=== PATIENT | female | born 1975 | race Caucasian/White ===

== ENCOUNTER 2017-01-21 18:20 | Day surgery (SDC) | payer MEDICARE, MEDICAID ==
[2017-01-21] VITALS (10 sets, daily range): BP systolic 95–149; BP diastolic 62–105
[~2017-01-21] VITALS: Ht 121.9 cm; Wt 41.3 kg
[~2017-01-21 18:20] MED LIST: CEPH250S PO; DIPH25TA82 PO; FLT05NA16 NSEACH; HYDR118S PO; PNT40TEC PO
[2017-01-21 18:36] LABS: BASOPHILS # (AUTO) 0.1 10^3/uL (0.0-0.1); BASOPHILS % (AUTO) 1 % (0-10); EOSINOPHILS % (AUTO) 8 % (0-10); LYMPHOCYTES # (AUTO) 4.9 X 10^3 (1.0-4.0); LYMPHOCYTES % (AUTO) 41 % (12-44); MEAN CORPUSCULAR HEMOGLOBIN 32 PG (25-34); MEAN CORPUSCULAR HGB CONC 33 G/DL (32-36); MEAN CORPUSCULAR VOLUME 96 FL (80-99); MEAN PLATELET VOLUME 11.7 FL (7.4-10.4); MONOCYTES # (AUTO) 0.6 X 10^3 (0.0-1.0); MONOCYTES % (AUTO) 5 % (0-12); NEUTROPHILS # (AUTO) 5.5 X 10^3 (1.8-7.8); NEUTROPHILS % (AUTO) 45 % (42-75); PLATELET COUNT 226 10^3/uL (130-400); RED BLOOD COUNT 4.39 10^6/uL (4.35-5.85); RED CELL DISTRIBUTION WIDTH 12.3 % (10.0-14.5)
--- NOTE | 2017-01-21 18:42 | Diagnostic Imaging Report ---
INDICATION: Aspirated a piece of sausage. FINDINGS: Upright chest shows normal heart size and vascularity. The lungs are clear. There is no effusion or pneumothorax. PEG tube is present in the stomach. IMPRESSION: No acute abnormality is seen. Dictated by: Dictated on workstation # [id number]
--- NOTE | 2017-01-21 18:47 | ED Respiratory ---
General Chief Complaint: Respiratory Problems Stated Complaint: UNK Nursing Triage Note: ARRIVED VIA WC TO ROOM 07. PT IS CP AND IS NOT TO TAKE ANYTHING BY MOUTH. SISTER STATES WHEN A PIZZA FELL FROM THE DASH OF THE CAR A PIECE OF SAUSAGE FELL INTO THE PT'S LAP AND THE PT PICKED IT UP AND ATE IT. IMMEDIATELY ASPIRATED. TO ROOM ALLIING. Source: patient, family (sister) Exam Limitations: physical impairment (cerebral palsy) History of Present Illness Time seen by provider: 18:20 Allergies and Home Medications Allergies Coded Allergies: Iodinated Contrast Media - IV Dye (Unverified Allergy, Unknown, RASH, ) Home Medications Diphenhydramine Hcl 25 Mg Tablet, 1 EACH PO HS for 30 Days Prescribed by: BERNARDO RODRIGES on 02/15/14 1319 Fluticasone Propionate 16 Gm [place], 2 SPRAYS NSEACH DAILY, #1 Prescribed by: BERNARDO RODRIGES on 02/15/14 1319 Pantoprazole Sodium 40 Mg Tablet.dr, 1 TAB PO DAILY, #30 Prescribed by: BERNARDO RODRIGES on 02/15/14 1319 Past Szehzba-Eyhpsp-Xwnfqe Hx Patient Social History Alcohol Use: Denies Use Recreational Drug Use: No Smoking Status: Never a Smoker Recent Foreign Travel: No Contact w/Someone Who Travel: No Recent Infectious Disease Expo: No Recent Hopitalizations: No Surgeries HX Surgeries: Yes (PEG TUBE , TUBES IN EARS,) Surgeries: Orthopedic Respiratory Hx Respiratory Disorders: No Cardiovascular Hx Cardiac Disorders: No Neurological Hx Neurological Disorders: Yes (SEVERE CP, UNABLE TO COMMUNICATE, MAKES GRUNTS) Reproductive System Hx Reproductive Disorders: No Genitourinary Hx Genitourinary Disorders: Yes (INCONTINENCE-WEARS DIAPERS) Gastrointestinal Hx Gastrointestinal Disorders: Yes (CONSTIPATION) Musculoskeletal Hx Musculoskeletal Disorders: Yes (SEVERE CP) Endocrine Hx Endocrine Disorders: No HEENT HX ENT Disorders: No (ABSCESSED TEETH) Cancer Hx Cancer: No Psychosocial Hx Psychiatric Problems: No Integumentary HX Skin/Integumentary Disorder: No Blood Transfusions Hx Blood Disorders: No Family Medical History Family Medial History: Cancer 19 FATHER (SMALL CELL LUNG.) Family history: Cardiovascular disease 19 MOTHER (X2 STENTS) Family history: Diabetes mellitus 19 MOTHER Family history: Hypertension 19 MOTHER History of - disorder 19 FATHER (CEREBRAL PALSY) G8 SISTER (MUSCLE DISEASE) Hypercholesterolemia 19 MOTHER Physical Exam Vital Signs Vital Sign - Last 12Hours 01/21/17 18:20 Temp 98.0 Pulse 81 Resp 24 B/P (MAP) 106/85 Pulse Ox 92 O2 Delivery Simple Mask O2 Flow Rate 15.00 Capillary Refill : Less Than 3 Seconds Progress/Results/Core Measures Results/Orders Lab Results Laboratory Tests Test 01/21/17 18:21 01/21/17 18:40 Range/Units White Blood Count 12.0 H 4.3-11.0 10^3/uL Red Blood Count 4.39 4.35-5.85 10^6/uL Hemoglobin 14.0 11.5-16.0 G/DL Hematocrit 42 35-52 % Mean Corpuscular Volume 96 80-99 FL Mean Corpuscular Hemoglobin 32 25-34 PG Mean Corpuscular Hemoglobin Concent 33 32-36 G/DL Red Cell Distribution Width 12.3 10.0-14.5 % Platelet Count 226 130-400 10^3/uL Mean Platelet Volume 11.7 H 7.4-10.4 FL Neutrophils (%) (Auto) 45 42-75 % Lymphocytes (%) (Auto) 41 12-44 % Monocytes (%) (Auto) 5 0-12 % Eosinophils (%) (Auto) 8 0-10 % Basophils (%) (Auto) 1 0-10 % Neutrophils # (Auto) 5.5 1.8-7.8 X 10^3 Lymphocytes # (Auto) 4.9 H 1.0-4.0 X 10^3 Monocytes # (Auto) 0.6 0.0-1.0 X 10^3 Eosinophils # (Auto) 1.0 H 0.0-0.3 10^3/uL Basophils # (Auto) 0.1 0.0-0.1 10^3/uL My Orders Orders - MICAH TOMLINSON PA Chest 1 View, Ap/Pa Only (01/21/17 18:25) Cbc With Automated Diff (01/21/17 18:30) Comprehensive Metabolic Panel (01/21/17 18:30) Saline Lock/Iv-Start (01/21/17 18:30) Vital Signs/I&O Vital Sign - Last 12Hours 01/21/17 01/21/17 18:20 18:20 Temp 98.0 Pulse 81 Resp 24 B/P (MAP) 106/85 Pulse Ox 92 82 O2 Delivery Simple Mask Room Air O2 Flow Rate 15.00 Blood Pressure Mean: 92 Diagnostic Imaging Diagonstic Imaging: Xray Plain Films/CT/US/NM/MRI: chest Comments CHEST 1 VIEW, AP/PA ONLY INDICATION: Aspirated a piece of sausage. FINDINGS: Upright chest shows normal heart size and vascularity. The lungs are clear. There is no effusion or pneumothorax. PEG tube is present in the stomach. IMPRESSION: No acute abnormality is seen. Dictated on workstation # [id number] Reviewed: Reviewed by Me (radiology report reviewed by me) Departure Communication Time/Spoke to Admitting Phy: 18:[address] Woods Departure-Patient Inst. Referrals: WILLEM CHOWDARY MD (PCP/Family) Primary Care Physician MICAH TOMLINSON Jan 21, 2017 18:47
[2017-01-21 19:05] LABS: ALANINE AMINOTRANSFERASE 15 U/L (0-55); ALBUMIN 4.4 G/DL (3.2-4.5); ANION GAP 12 MMOL/L (5-14); ASPARTATE AMINO TRANSFERASE 19 U/L (5-34); BILIRUBIN,TOTAL 0.7 MG/DL (0.1-1.0); BLOOD UREA NITROGEN 18 MG/DL (7-18); BUN/CREATININE RATIO 29; CALCIUM 9.2 MG/DL (8.5-10.1); CARBON DIOXIDE 24 MMOL/L (21-32); CHLORIDE 106 MMOL/L (98-107); CREATININE SERUM 0.63 MG/DL (0.60-1.30); GFR ESTIMATED > 60; GLUCOSE 93 MG/DL (70-105); POTASSIUM 3.7 MMOL/L (3.6-5.0); SODIUM 142 MMOL/L (135-145); TOTAL PROTEIN 7.3 G/DL (6.4-8.2)
[2017-01-21] MEDS ORDERED: NS (IVPB) 100 ML ONE (19:10)
[2017-01-21] MEDS ORDERED: PIPERACILLIN/TAZO 4.5 GM VIAL (ZOSYN) IV ONE (19:15)
[2017-01-21] MEDS ORDERED: ONDANSETRON 4 MG/2 ML (SDV) Z0FRAN IVP PRN (20:00)
[2017-01-21] MEDS: NS IV 1000 ML 1,000 ML IV SCH (20:11)
[2017-01-21] MEDS: FAMOTIDINE 20MG/2ML IV (PEPCID) IVP SCH (22:59)
[2017-01-21] MEDS ORDERED: proPOfol 200 MG/20 ML (DIPRIVAN) VIAL IV ONE (23:14)
[2017-01-21] MEDS ORDERED: PROPOFOL DRIP (ICU) 100 ML IV ONE (23:14)
--- NOTE | 2017-01-21 23:36 | Anesthesia-Procedure Note ---
Procedure Start/Stop Time Date of Procedure: Jan 21, 2017 Start Time: 23:22 Referring Physician: genesis Preprocedural Diagnosis: aspiration Stop Time: 23:27 Procedures/Interventions RSI: Yes 100% pre-Ox, [id number]: Yes Intubation Method: orotracheal Videoscope used: Yes Medications: Propofol, Rocuronium, Succinylcholine, Versed Mask Ventilation: positive Positive End Tide CO2: Yes Breath Sounds after Intubation: bilateral-equal ETT Securred @ (cm): 18 Intubated with ease: Yes Intubation Complications: no complications Post Intubation Xray-done: Yes KAISER DELONG CRNA Jan 21, 2017 23:36
--- NOTE | 2017-01-21 23:46 | Pulmonary History & Physicial ---
History of Present Illness History of Present Illness Date of Consultation 01/21/17 23:42 Date of Admission History of Present Illness Pt presented to ER for suspected aspiration on a piece of sausage. No prior hx like this. Allergies and Home Medications Allergies Coded Allergies: Iodinated Contrast Media - Oral and (Unverified Allergy, Unknown, RASH, 02/09/14) Home Medications No Active Prescriptions or Reported Meds Past Gnbzorh-Lrdxxi-Vllrmp Hx Patient Social History Alcohol Use: Denies Use Recreational Drug Use: No Smoking Status: Never a Smoker Recent Foreign Travel: No Contact w/Someone Who Travel: No Recent Infectious Disease Expo: No Recent Hopitalizations: No Physical Abuse Screen: No Sexual Abuse: No Seasonal Allergies Seasonal Allergies: Yes Surgeries HX Surgeries: Yes (PEG TUBE , TUBES IN EARS,) Surgeries: Orthopedic Respiratory Hx Respiratory Disorders: No Cardiovascular Hx Cardiac Disorders: No Neurological Hx Neurological Disorders: Yes (SEVERE CP, UNABLE TO COMMUNICATE, MAKES GRUNTS) Reproductive System : No Hx Reproductive Disorders: No Genitourinary Hx Genitourinary Disorders: Yes (INCONTINENCE-WEARS DIAPERS) Gastrointestinal Hx Gastrointestinal Disorders: Yes (CONSTIPATION) Musculoskeletal Hx Musculoskeletal Disorders: Yes (SEVERE CP) Endocrine Hx Endocrine Disorders: No HEENT HX ENT Disorders: No (ABSCESSED TEETH) Cancer Hx Cancer: No Psychosocial Hx Psychiatric Problems: No Integumentary HX Skin/Integumentary Disorder: No Blood Transfusions Hx Blood Disorders: No Family Medical History Family Medial History: Cancer 19 FATHER (SMALL CELL LUNG.) Family history: Cardiovascular disease 19 MOTHER (X2 STENTS) Family history: Diabetes mellitus 19 MOTHER Family history: Hypertension 19 MOTHER History of - disorder 19 FATHER (CEREBRAL PALSY) G8 SISTER (MUSCLE DISEASE) Hypercholesterolemia 19 MOTHER Exam Exam Vital Signs Date Time Temp Pulse Resp B/P (MAP) Pulse Ox O2 Delivery O2 Flow Rate FiO2 01/21/17 23:00 128 16 98/62 96 Nasal Cannula 01/21/17 22:00 125 32 122/105 97 Nasal Cannula 01/21/17 21:45 87 01/21/17 21:45 96 4.00 01/21/17 21:00 104 16 108/86 95 Room Air 01/21/17 20:45 105 10 96/73 100 Room Air 01/21/17 20:30 97 8 96/83 100 Room Air 01/21/17 20:15 102 12 96/79 99 Room Air 01/21/17 20:00 99 30 114/85 98 Room Air 01/21/17 19:50 101 14 149/81 99 Room Air 01/21/17 19:50 101 01/21/17 19:43 99.1 Room Air 01/21/17 19:43 99.1 01/21/17 18:20 98.0 81 24 106/85 82 Room Air 01/21/17 18:20 92 Simple Mask 15.00 General Appearance: Anxious, Moderate Distress HEENT: PERRL/EOMI Neck: Full Range of Motion, Normal Inspection Respiratory: Chest Non Tender, No Accessory Muscle Use, No Respiratory Distress , Decreased Breath Sounds Cardiovascular: Regular Rate, Rhythm, No Edema Capillary Refill: Less Than 3 Seconds Gastrointestinal: normal bowel sounds, non tender, soft Neurologic/Psychiatric: Alert Skin: Normal Color, Warm/Dry Lymphatic: No Adenopathy Results Lab Laboratory Tests 01/21/17 18:21 01/21/17 18:40 Assessment/Plan Assessment/Plan -Acute respiratory failure- -Will intubate patient and do bronchoscopy SVNS Will plan for early intubation Clinical Quality Measures DVT/VTE Risk/Contraindication: Risk Factor Score Per Nursin RFS Level Per Nursing on Admit: 4+=Very High MAXI VALERO DO Jan 21, 2017 23:45
--- NOTE | 2017-01-21 23:48 | Pulmonary Procedures ---
Pulmonary Procedures Date of Procedure Date of Service: Jan 21, 2017 Bronch Bronchoscopy with bronchoalveolar lavage (BAL), transbronchial washes and, brushes. Preop DX aspiration hypoxia Postop DX: copious thin secretions no signs of aspiration Complications: none After informed consent obtained and formal time out pt was sedated using propofol . Bronchoscope was advanced through ET tube . An anatomical tour was undertaken down to the segmental bronchi bilaterally. No endobronchial lesions noted. No signs of aspiration. Pt tolerated procedure well. No complications noted. Stat CXR is pending. MAXI VALERO DO Jan 21, 2017 23:48
[2017-01-22] VITALS (48 sets, daily range): BP systolic 78–135; BP diastolic 45–98
[2017-01-22] MEDS ORDERED: NS IV 1000 ML 1,000 ML IV SCH
[2017-01-22] MEDS ORDERED: fentaNYL INJECTION 100 MCG/2 ML AMP ONE (00:09)
[2017-01-22 00:48] LABS: ABG BASE EXCESS -3.7 MMOL/L (-2.5-2.5); ABG HCO3 19 MMOL/L (23-27); ABG OXYGEN SATURATION 96 % (94-100); ABG PCO2 26 MMHG (35-45); ABG PH 7.48 (7.37-7.43); ABG PO2 65 MMHG (79-93); ABG TCO2 20.1 MMOL/L (21.0-31.0)
[2017-01-22 00:51] LABS: ALLENS TEST YES-POS
[2017-01-22 00:52] LABS: PATIENT TEMP 97.6
[2017-01-22] MEDS ORDERED: fentaNYL INJECTION 100 MCG/2 ML AMP IV PRN (01:00)
[2017-01-22] MEDS ORDERED: SODIUM BICARB 8.4% 50 MEQ/50 ML (ABBOTT) SYR ONE (01:03)
[2017-01-22] MEDS ORDERED: SODIUM BICARB 8.4% 50 MEQ/50 ML (ABBOTT) SYR IV ONE (01:15)
[2017-01-22] MEDS: NS IV 1000 ML 1,000 ML IV SCH ×3 (01:19→20:58)
[2017-01-22] MEDS ORDERED: RT-ALBUTEROL/IPRATROPIUM 3 ML (DUONEB) VIAL INH PRN (01:30)
[2017-01-22] MEDS: PIPERACILLIN/TAZOBACTAM 4.5 GM/NS 100 ML IVPB IV SCH ×6 (02:02→17:40)
[2017-01-22 04:14] LABS: BASOPHILS % (AUTO) 0 % (0-10); EOSINOPHILS % (AUTO) 0 % (0-10); LYMPHOCYTES # (AUTO) 1.3 X 10^3 (1.0-4.0); LYMPHOCYTES % (AUTO) 17 % (12-44); MEAN CORPUSCULAR HEMOGLOBIN 32 PG (25-34); MEAN CORPUSCULAR HGB CONC 33 G/DL (32-36); MEAN CORPUSCULAR VOLUME 96 FL (80-99); MEAN PLATELET VOLUME 11.8 FL (7.4-10.4); MONOCYTES # (AUTO) 0.4 X 10^3 (0.0-1.0); MONOCYTES % (AUTO) 5 % (0-12); NEUTROPHILS # (AUTO) 6.2 X 10^3 (1.8-7.8); NEUTROPHILS % (AUTO) 78 % (42-75); PLATELET COUNT 173 10^3/uL (130-400); RED BLOOD COUNT 3.72 10^6/uL (4.35-5.85); RED CELL DISTRIBUTION WIDTH 12.1 % (10.0-14.5); WHITE BLOOD COUNT 7.9 10^3/uL (4.3-11.0)
[2017-01-22 04:27] LABS: ALANINE AMINOTRANSFERASE 11 U/L (0-55); ALBUMIN 3.4 G/DL (3.2-4.5); ANION GAP 13 MMOL/L (5-14); ASPARTATE AMINO TRANSFERASE 14 U/L (5-34); BILIRUBIN,TOTAL 1.1 MG/DL (0.1-1.0); BLOOD UREA NITROGEN 17 MG/DL (7-18); BUN/CREATININE RATIO 28; CALCIUM 7.8 MG/DL (8.5-10.1); CARBON DIOXIDE 19 MMOL/L (21-32); CHLORIDE 112 MMOL/L (98-107); GFR ESTIMATED > 60; GLUCOSE 116 MG/DL (70-105); MAGNESIUM 1.6 MG/DL (1.8-2.4); PHOSPHORUS 1.7 MG/DL (2.3-4.7); POTASSIUM 2.9 MMOL/L (3.6-5.0); SODIUM 144 MMOL/L (135-145); TOTAL PROTEIN 5.4 G/DL (6.4-8.2)
[2017-01-22] MEDS: MAGNESIUM 1 GM/100 ML IVPB 100 ML IV SCH ×3 (04:50→05:58)
[2017-01-22] MEDS: POTASSIUM CL 10MEQ/50ML IVPB 50 ML IV SCH ×4 (04:50→07:55)
[2017-01-22] MEDS ORDERED: SUCCINYLCHOLINE INJ 100 MG/5 ML SYR INJ ONE (05:00)
[2017-01-22] MEDS ORDERED: MIDAZOLAM 5 MG/5 ML (VERSED) VIAL INJ ONE (05:00)
[2017-01-22] MEDS ORDERED: ROCURONIUM 50 MG/5 ML (ZEMURON) VIAL IV ONE (05:00)
[2017-01-22] MEDS ORDERED: POTASSIUM CL 10MEQ/50ML IVPB 50 ML IV ONE (05:00)
[2017-01-22] MEDS: fentaNYL INJECTION 100 MCG/2 ML AMP IV PRN ×2 (05:12→06:16)
[2017-01-22] MEDS: RT-ALBUTEROL/IPRATROPIUM 3 ML (DUONEB) VIAL INH SCH ×3 (07:01→19:20)
--- NOTE | 2017-01-22 07:03 | Pulmonary Progress Note ---
Subjective Subjective/Events-last exam PT is doing better and currently on ventilator. Exam Exam Vital Signs Date Time Temp Pulse Resp B/P (MAP) Pulse Ox O2 Delivery O2 Flow Rate FiO2 01/22/17 06:45 77 23 95/68 98 Mechanical Ventilator 21.00 01/22/17 06:30 80 23 93/62 99 Mechanical Ventilator 21.00 01/22/17 06:15 87 19 100/78 100 Mechanical Ventilator 21.00 01/22/17 06:00 80 24 101/68 99 Mechanical Ventilator 21.00 01/22/17 05:45 74 24 92/63 100 Mechanical Ventilator 21.00 01/22/17 05:30 84 32 95/66 100 Mechanical Ventilator 21.00 01/22/17 05:15 80 24 99/71 100 Mechanical Ventilator 21.00 01/22/17 05:00 85 24 105/72 100 Mechanical Ventilator 21.00 01/22/17 04:45 85 24 100/75 100 Mechanical Ventilator 21.00 01/22/17 04:30 80 24 100/71 100 Mechanical Ventilator 21.00 01/22/17 04:21 79 24 100 40 01/22/17 04:15 80 25 115/81 100 Mechanical Ventilator 21.00 01/22/17 04:00 98.6 86 24 111/86 100 Mechanical Ventilator 21.00 01/22/17 04:00 Mechanical Ventilator 30 01/22/17 03:45 81 24 127/90 100 Mechanical Ventilator 30.00 01/22/17 03:30 74 23 92/67 100 Mechanical Ventilator 30.00 01/22/17 03:15 79 24 96/66 100 Mechanical Ventilator 30.00 01/22/17 03:00 77 24 100/61 100 Mechanical Ventilator 30.00 01/22/17 02:55 74 23 100 Mechanical Ventilator 30.00 01/22/17 02:51 81 24 100 40 01/22/17 02:45 71 24 103/75 100 Mechanical Ventilator 40.00 01/22/17 02:15 81 23 96/61 97 Mechanical Ventilator 40.00 01/22/17 02:00 82 23 96/65 99 Mechanical Ventilator 40.00 01/22/17 01:45 87 23 109/67 100 Mechanical Ventilator 40.00 01/22/17 01:30 93 23 86/54 99 Mechanical Ventilator 40.00 01/22/17 01:15 106 21 112/95 97 Mechanical Ventilator 40.00 01/22/17 01:00 101 14 104/72 100 Mechanical Ventilator 40.00 01/22/17 01:00 101 01/22/17 00:45 94 23 91/59 98 Mechanical Ventilator 40.00 01/22/17 00:30 95 23 98/66 97 Mechanical Ventilator 40.00 01/22/17 00:15 147 23 113/79 98 Mechanical Ventilator 50.00 01/22/17 00:12 112 24 98 50 01/22/17 00:02 142 01/22/17 00:00 97.6 142 23 135/98 97 Mechanical Ventilator 50.00 01/22/17 00:00 Mechanical Ventilator 50 01/21/17 23:45 129 24 138/85 96 Mechanical Ventilator 50.00 01/21/17 23:30 151 23 95/73 100 Mechanical Ventilator 50.00 01/21/17 23:00 128 16 98/62 96 Nasal Cannula 4.00 01/21/17 22:00 125 32 122/105 97 Nasal Cannula 4.00 01/21/17 21:45 87 01/21/17 21:45 96 4.00 01/21/17 21:00 104 16 108/86 95 Room Air 01/21/17 20:45 105 10 96/73 100 Room Air 01/21/17 20:30 97 8 96/83 100 Room Air 01/21/17 20:15 102 12 96/79 99 Room Air 01/21/17 20:00 99 30 114/85 98 Room Air 01/21/17 19:50 101 14 149/81 99 Room Air 01/21/17 19:50 101 01/21/17 19:43 99.1 Room Air 01/21/17 19:43 99.1 01/21/17 18:20 98.0 81 24 106/85 82 Room Air 01/21/17 18:20 92 Simple Mask 15.00 I & O 01/22/17 06:59 Intake Total 1300 ml Output Total 0 ml Balance 1300 ml General Appearance: No Apparent Distress, WD/WN, Other (sedated on vent) HEENT: PERRL/EOMI Neck: Full Range of Motion, Normal Inspection Respiratory: Chest Non Tender Capillary Refill: Less Than 3 Seconds Gastrointestinal: normal bowel sounds, non tender, soft Results Lab Laboratory Tests 01/21/17 18:21 01/21/17 18:40 01/22/17 03:45 Assessment/Plan Assessment/Plan -Acute respiratory failure- -PT is currently on ventilator secondary to suspecteced aspiration she is now s/p bronchoscopy -Pt is doing better today will wake her up and extubate this morning SVNS Will plan for early extubation Clinical Quality Measures DVT/VTE Risk/Contraindication: Risk Factor Score Per Nursin RFS Level Per Nursing on Admit: 4+=Very High MAXI VALERO DO Jan 22, 2017 07:03
--- NOTE | 2017-01-22 07:21 | Diagnostic Imaging Report ---
CLINICAL INDICATION: Patient with aspiration and hypoxia. EXAM: Portable chest x-ray upright view. COMPARISONS: Chest x-ray dated 01/21/2017 at 1836 hours. FINDINGS: Lungs/pleura: There is slight increase mild bibasilar increased density which may represent atelectasis versus infiltrate. Suspected mild medial bibasilar atelectasis versus infiltrate. Slight low lung volumes are seen. There is no pneumothorax or pleural effusion. Pulmonary vasculature and cardiac silhouettes within normal limits. The appearance of air beneath the right diaphragm has resolved. Interposed air-filled colon may be considered. There is right curvature of the thoracic spine. The remainder of this exam shows no significant interval change compared to the prior study of comparison. IMPRESSION: 1: There is slight increase left basilar atelectasis versus infiltrate. Aspiration also may be considered. There is stable mild right lung base atelectasis versus infiltrate. 2: The previously seen air underneath the right diaphragm is resolved and interposed air-filled colon may be considered. Dictated by: Dictated on workstation # [id number]
[2017-01-22] MEDS: FAMOTIDINE 20MG/2ML IV (PEPCID) IVP SCH ×2 (08:32→20:21)
--- NOTE | 2017-01-22 09:36 | Diagnostic Imaging Report ---
Clinical indication: Patient post intubation/bronchoscopy. Exam: Portable chest x-ray upright view. Comparison: Portable chest x-ray dated 01/21/2017. Findings: There is interval placement of ET tube with tip seen at the upper T5 vertebral body level. There is stable left lung base atelectasis versus infiltrate and slight increased medial right lung base atelectasis versus infiltrate. There is no pleural effusion or pneumothorax. Pulmonary vasculature and cardiac silhouettes within normal limits. Again seen right curvature of the thoracic spine. IMPRESSION: 1: There is slight increased atelectasis versus infiltrate involving the right lung base. Otherwise there is stable left lung base infiltrate. 2: Interval placement of ET tube, as discussed above. Dictated by: Dictated on workstation # [id number]
[2017-01-22] MEDS: ENOXAPARIN 40 MG/0.4 ML (LOVENOX) SYR SC SCH (12:27)
[2017-01-23] VITALS (12 sets, daily range): BP systolic 82–124; BP diastolic 53–95
[2017-01-23] MEDS: PIPERACILLIN/TAZOBACTAM 4.5 GM/NS 100 ML IVPB IV SCH ×2 (03:12)
[2017-01-23 03:45] LABS: BASOPHILS % (AUTO) 0 % (0-10); EOSINOPHILS # (AUTO) 0.2 10^3/uL (0.0-0.3); EOSINOPHILS % (AUTO) 3 % (0-10); LYMPHOCYTES # (AUTO) 2.6 X 10^3 (1.0-4.0); LYMPHOCYTES % (AUTO) 36 % (12-44); MEAN CORPUSCULAR HEMOGLOBIN 32 PG (25-34); MEAN CORPUSCULAR HGB CONC 32 G/DL (32-36); MEAN CORPUSCULAR VOLUME 102 FL (80-99); MONOCYTES # (AUTO) 0.3 X 10^3 (0.0-1.0); MONOCYTES % (AUTO) 3 % (0-12); NEUTROPHILS # (AUTO) 4.2 X 10^3 (1.8-7.8); NEUTROPHILS % (AUTO) 58 % (42-75); PLATELET COUNT 154 10^3/uL (130-400); RED CELL DISTRIBUTION WIDTH 12.6 % (10.0-14.5); WHITE BLOOD COUNT 7.3 10^3/uL (4.3-11.0)
[2017-01-23 04:14] LABS: ANION GAP 9 MMOL/L (5-14); BLOOD UREA NITROGEN 12 MG/DL (7-18); BUN/CREATININE RATIO 21; CALCIUM 6.8 MG/DL (8.5-10.1); CARBON DIOXIDE 15 MMOL/L (21-32); CHLORIDE 122 MMOL/L (98-107); CREATININE SERUM 0.57 MG/DL (0.60-1.30); GFR ESTIMATED > 60; GLUCOSE 73 MG/DL (70-105); MAGNESIUM 2.1 MG/DL (1.8-2.4); PHOSPHORUS 2.8 MG/DL (2.3-4.7); POTASSIUM 3.9 MMOL/L (3.6-5.0); SODIUM 146 MMOL/L (135-145)
[2017-01-23] MEDS: POTASSIUM CL 10MEQ/50ML IVPB 50 ML IV SCH (05:30)
[2017-01-23] MEDS: MAGNESIUM 1 GM/100 ML IVPB 100 ML IV SCH (05:30)
[2017-01-23] MEDS ORDERED: FUROSEMIDE 40 MG/4 ML INJ (LASIX) ONE (06:22)
[2017-01-23] MEDS ORDERED: FUROSEMIDE 40 MG/4 ML INJ (LASIX) IVP ONE (06:30)
--- NOTE | 2017-01-23 06:33 | Pulmonary Progress Note ---
Subjective Subjective/Events-last exam PT is doing well. She vomited TF yesterday. There was a fear of possible aspiration however pt appears to be doing well even without NC. NC has fallen off her face. Exam Exam Vital Signs Date Time Temp Pulse Resp B/P (MAP) Pulse Ox O2 Delivery O2 Flow Rate FiO2 01/23/17 06:03 93 14 86/56 91 Nasal Cannula 2.00 01/23/17 05:05 89 10 84/62 98 Nasal Cannula 2.00 01/23/17 04:00 98 2.00 01/23/17 04:00 92 10 99/69 91 Nasal Cannula 2.00 01/23/17 03:00 77 14 90/57 100 Nasal Cannula 2.00 01/23/17 02:03 80 12 96/65 99 Nasal Cannula 2.00 01/23/17 01:28 72 01/23/17 01:00 75 12 85/56 99 Nasal Cannula 2.00 01/23/17 00:00 97.8 01/23/17 00:00 98 2.00 01/23/17 00:00 70 9 82/53 100 Nasal Cannula 2.00 01/22/17 23:00 80 13 89/60 99 Nasal Cannula 2.00 01/22/17 22:00 94 9 87/56 96 Nasal Cannula 2.00 01/22/17 21:00 89 18 86/50 96 Nasal Cannula 2.00 01/22/17 20:10 98.3 101 14 99/70 97 Nasal Cannula 2.00 01/22/17 20:00 97 2.00 01/22/17 19:26 125 27 105/80 95 Nasal Cannula 2.00 01/22/17 19:20 97 3.00 01/22/17 19:00 127 01/22/17 18:00 79 12 83/61 92 Room Air 01/22/17 17:00 87 9 91/63 95 Room Air 01/22/17 16:00 83 10 87/62 95 Room Air 01/22/17 15:29 91 01/22/17 15:00 84 12 89/63 93 Room Air 01/22/17 14:00 86 8 109/96 95 Room Air 01/22/17 13:00 84 01/22/17 13:00 93 9 81/51 92 Room Air 01/22/17 12:10 99.1 Room Air 01/22/17 12:10 Room Air 01/22/17 12:00 86 13 102/61 94 Room Air 01/22/17 11:00 106 23 78/45 98 Room Air 01/22/17 10:39 Room Air 01/22/17 10:00 100 10 102/65 100 Nasal Cannula 2.00 01/22/17 09:45 Nasal Cannula 2.00 01/22/17 09:00 111 15 92/55 100 Nasal Cannula 2.00 01/22/17 08:46 99.9 Nasal Cannula 2.00 01/22/17 08:32 Nasal Cannula 4.00 01/22/17 08:00 123 32 108/71 95 Nasal Cannula 4.00 01/22/17 07:48 98 Nasal Cannula 4.00 01/22/17 07:48 Nasal Cannula 4.00 01/22/17 07:01 84 24 98 21 01/22/17 07:00 80 01/22/17 07:00 84 23 110/74 99 Mechanical Ventilator 21.00 01/22/17 06:45 77 23 95/68 98 Mechanical Ventilator 21.00 01/22/17 06:30 80 23 93/62 99 Mechanical Ventilator 21.00 I & O 01/23/17 07:00 Intake Total 1300 ml Balance 1300 ml General Appearance: No Apparent Distress, WD/WN, Other (sedated on vent) HEENT: PERRL/EOMI Neck: Full Range of Motion, Normal Inspection Respiratory: Chest Non Tender Capillary Refill: Less Than 3 Seconds Gastrointestinal: normal bowel sounds, non tender, soft Results Lab Laboratory Tests 01/21/17 18:21 01/21/17 18:40 01/22/17 03:45 01/23/17 03:15 Assessment/Plan Assessment/Plan -Acute respiratory failure- -pt is doing well off vent SVNS Pulmonary edema -Hep lock IVF -Lasix 40mg IV X 1 - CXR reviewed and is poor insp film. She currently has NC off and Sp02 is 94%. Will plan on discharge later today if she is still doing well. Clinical Quality Measures DVT/VTE Risk/Contraindication: Risk Factor Score Per Nursin RFS Level Per Nursing on Admit: 4+=Very High MAXI VALERO DO Jan 23, 2017 06:33
[2017-01-23] MEDS: ENOXAPARIN 40 MG/0.4 ML (LOVENOX) SYR SC SCH (06:52)
[2017-01-23] MEDS: RT-ALBUTEROL/IPRATROPIUM 3 ML (DUONEB) VIAL INH SCH (07:00)
--- NOTE | 2017-01-23 07:43 | Diagnostic Imaging Report ---
Portable AP view of the chest. INDICATION: Aspiration. Cerebral palsy. FINDINGS: When compared to 01/21/2017, there is significant worsening with development of right lower lobe infiltrate with small/ moderate pleural effusion. The heart size is normal. No effusion on the left. No pneumothorax. IMPRESSION: Large opacification in the mid and lower right chest developed from the prior study concerning for pneumonia and prominent pleural effusion. Dictated by: Dictated on workstation # [id number]
[2017-01-23] MEDS: FAMOTIDINE 20MG/2ML IV (PEPCID) IVP SCH (07:50)
== END 2017-01-23 11:35 | disposition home or self-care (01) ==
LOC: EDUNIT# 18:20 → ER 18:22 → ICU 19:11 → UNDOADMOB 19:11 → SDC 19:11 → ICU 19:11 → SDC 01-23 11:35 → UNDODISOB 01-23 11:35
PROVIDERS: ATTEND Internal Medicine Critical Care Medicine
DX: J96.01 Acute respiratory failure with hypoxia (principal); T17.920A Food in respiratory tract, part unspecified causing asphyxiation, initial encounter; G80.9 Cerebral palsy, unspecified; R32 Unspecified urinary incontinence; J81.1 Chronic pulmonary edema
CPT/HCPCS: 36415; 71010; 80048; 80053; 82805; 83735; 84100; 85025; 87081; 94002; 94003; 94640; 94799; 96374

== ENCOUNTER → 2017-02-03 | Outpatient (CLI) | payer MEDICARE, MEDICAID ==
--- NOTE | 2017-02-03 16:20 | Diagnostic Imaging Report ---
INDICATION: Aspiration. COMPARISON: 01/23/2017. FINDINGS: Resolution of right middle and lower lobe pneumonias and right pleural fluid has occurred in the interim. Some very mild patchy infiltrate in the left lower lobe having improved in severity from prior. No effusion, no pneumothorax. IMPRESSION: Resolution of right thoracic pleural parenchymal opacity. Mild infiltrative changes in the left lower lobe improved from prior. No adverse development. Dictated by: Dictated on workstation # [id number]
== END ==
LOC: RAD 14:49
PROVIDERS: ATTEND Family Medicine
DX: J69.0 Pneumonitis due to inhalation of food and vomit (principal)
CPT/HCPCS: 71020

== ENCOUNTER → 2017-05-06 | Day surgery (SDC) | payer MEDICARE, MEDICAID ==
[~2017-05-06] VITALS: Ht 121.9 cm; Wt 40.4 kg
[2017-05-06 09:38] VITALS: BP 194/169
--- NOTE | 2017-05-06 10:12 | Progress Note-Post Operative ---
Post-Operative Progess Note Surgeon (s)/Commercial Development Manager (s) Surgeon ANDRES LOGAN MD Commercial Development Manager: none Pre-Operative Diagnosis dysphagia, malnutrition, dehydration Post-Operative Diagnosis same Procedure & Operative Findings Date of Procedure 05/06/17 Procedure Performed/Findings replacement gastrostomy tube. Anesthesia Type none Estimated Blood Loss Estimated blood loss (mL): minimal Specimens/Packing Specimens Removed none ANDRES LOGAN MD May 06, 2017 10:12
--- NOTE | 2017-05-06 11:03 | OPERATIVE REPORT ---
PROCEDURE PHYSICIAN: ANDRES LEROY DATE OF PROCEDURE: 05/06/2017 ATTENDING PRIMARY CARE PHYSICIAN: Dr. Cristy Brumfield. PREPROCEDURE DIAGNOSES: 1. Dysphagia. 2. Weight loss. 3. Developmental delay. POSTPROCEDURE DIAGNOSES: 1. Dysphagia. 2. Weight loss. 3. Developmental delay. PROCEDURE: Gastrostomy tube change. SURGEON: Dr. Leroy. ANESTHESIA: None. ESTIMATED BLOOD LOSS: Minimal. DISPOSITION: The patient tolerated the procedure well. Ms. Maeve Khalil is a 41-year-old female known to us. She has had a history of developmental delay and over time required gastrostomy tube for alimentation due to her worsening nutritional as well as hydration status. The original gastrostomy tube became nonfunctional and was removed and replaced by an ALYCE gastrostomy tube. Again, the gastrostomy tube has become nonfunctional with anopening on the external surface of the tubing. We will proceed with removal and replacement of the gastrostomy tube. The patient was placed in the supine and no anesthesia was given. The balloon was desufflated with an empty syringe and removed. A 22-Fris[place] new ALYCE gastrostomy tube was placed without any resistance and the balloon insufflated to approximately 10 milliliters and then pulled back in the external rubber bolster abutted the plate at the skin level. The patient tolerated procedure well. The tube may be accessed and used at any time. Job ID: [id number] Dictated Date: 05/06/2017 10:10:52 Shaft Tender Date: 05/06/2017 10:54:19 / bonnie JENKINS
[2017-05-06 12:56] VITALS: BP 194/169
== END | disposition home or self-care (01) ==
LOC: SDC 09:03
PROVIDERS: ATTEND Surgery
DX: K94.29 Other complications of gastrostomy (principal); R13.10 Dysphagia, unspecified; R63.4 Abnormal weight loss; R62.50 Unspecified lack of expected normal physiological development in childhood

== ENCOUNTER 2017-11-11 09:28 | Outpatient (CLI) | payer MEDICARE, MEDICAID ==
[~2017-11-11] VITALS: Ht 149.9 cm; Wt 38.6 kg
[2017-11-11] MEDS ORDERED: LACT10SO PEG (12:39)
[2017-11-11] MEDS ORDERED: LORA5SOL61 PEG (12:39)
== END 2017-11-11 12:44 ==
LOC: PREOP 09:28
PROVIDERS: ATTEND Surgery
DX: Z01.818 Encounter for other preprocedural examination (principal); K94.23 Gastrostomy malfunction

== ENCOUNTER → 2017-11-13 | Day surgery (SDC) | payer MEDICARE, MEDICAID ==
[~2017-11-13] VITALS: Ht 149.9 cm; Wt 38.6 kg
[~2017-11-13] MED LIST changes: +LACT10SO PEG; +LORA5SOL61 PEG
--- NOTE | 2017-11-13 10:06 | Progress Note-Post Operative ---
Post-Operative Progess Note Surgeon (s)/Client Success Director (s) Surgeon ANDRES LOGAN MD Client Success Director: none Pre-Operative Diagnosis dysphagia, malnutrition, dehydration Post-Operative Diagnosis same, malfunctioning gastrostomy tube. Procedure & Operative Findings Date of Procedure 11/13/17 Procedure Performed/Findings removal and replacement gastrostomy tube. Anesthesia Type none Estimated Blood Loss Estimated blood loss (mL): minimal Specimens/Packing Specimens Removed none ANDRES LOGAN MD Nov 13, 2017 10:06 am
[2017-11-13 10:10] VITALS: BP 90/50
== END | disposition home or self-care (01) ==
LOC: SDC 09:24
PROVIDERS: ATTEND Surgery
DX: K94.23 Gastrostomy malfunction (principal); R13.10 Dysphagia, unspecified; F72 Severe intellectual disabilities; K59.00 Constipation, unspecified; E46 Unspecified protein-calorie malnutrition; E86.0 Dehydration

== ENCOUNTER 2018-06-22 06:09 | Outpatient (CLI) | payer MEDICARE, MEDICAID ==
[~2018-06-22] VITALS: Ht 149.9 cm; Wt 36.3 kg
== END 2018-06-22 09:53 | disposition home or self-care (01) ==
LOC: PREOP 06:09
PROVIDERS: ATTEND Surgery
DX: Z01.818 Encounter for other preprocedural examination (principal)

== ENCOUNTER 2018-06-23 11:01 | Day surgery (SDC) | payer MEDICARE, MEDICAID ==
[~2018-06-23] VITALS: Ht 149.9 cm; Wt 36.3 kg
--- OUTSIDE RECORDS SUMMARY | 2018-06-23 11:13 | XMS REPORT | Continuity of Care Document ---
Author Author [facility] Organization [facility] Address Unknown Phone Unavailable Allergies Active Description Code Type Severity Reaction Onset Reported/Identified Relationship to Patient Clinical Status Yes CONTRAST DYE CONTRAST DYE SEVERE Yes NO KNOWN DRUG ALLERGIES NO KNOWN DRUG ALLERG UNKNOWN Yes CONTRAST DYE SEVERE DERMATOLOGICAL - HIV Yes NO KNOWN DRUG ALLERGIES UNKNOWN NO KNOWN DRUG ALLERG Yes Iodinated Contrast Media - IV Dye [id number] Drug Allergy Unknown RASH 05/2014 Yes Iodinated Contrast Media - Oral and [id number] Drug Allergy Unknown RASH Yes Iodinated Contrast- Oral and IV Dye [id number] Drug Allergy Unknown RASH Medications Medication Packaging Start Date Stop Date Route Dosage Sig ALBUTEROL SVN 2.5MG/3CC LIQ 2.5 MG (PROVENTIL DAVID 2.5MG/3CC) MG 11/26/2016 11/26/2016 PRN ONCE NORMAL SALINE 250CC IV BAG INJ 0.9 % (NS 250CC IV BAG) ml 11/26/2016 12/06/2016 Daily&1900 ACETAMINOPHEN ES LIQ LIQ 500 MG/15CC (TYLENOL ADULT LIQ) MG 11/26/2016 12/03/2016 PRN Q6H ALBUTEROL SVN 2.5MG/3CC LIQ 2.5 MG (PROVENTIL DAVID 2.5MG/3CC) MG 11/26/2016 12/06/2016 QID&0600,1100,1600,2100 IBUPROFEN SUSP UNIT DOSE LIQ 100 MG/5CC (MOTRIN LIQ UNIT DOSE) MG 11/26/2016 12/03/2016 PRN Q8H Fluarix Quad [id number] (PF) (Influenza [id number] 36mos up(PF)) IM syringe 11/26/2016 11/26/2016 ONCE&2313 Fluarix Quad 5429-2451 (PF) (Influenza [id number] 36mos up(PF)) IM syringe ML 11/26/2016 11/26/2016 ONCE&2323 LORATADINE TAB 10 MG (CLARITIN) MG 11/27/2016 12/03/2016 Daily&0900 CEFTRIAXONE PREMIX IV BAG IV 1 GM/50CC (ROCEPHIN PREMIX IV BAG) GM 11/27/2016 12/06/2016 Daily&1800 ACETAMINOPHEN SUPPOS SUP 650 MG (TYLENOL) MG 11/27/2016 12/04/2016 PRN Q6H MORPHINE SYRINGE INJ 2 MG/CC MG 11/27/2016 ONCE&1715 LACTULOSE SYRUP LIQ 20 GM/30CC (CHRONULAC SYRUP) GM 11/27/2016 11/27/2016 ONCE&2100 NORMAL SALINE 500CC IV BAG INJ 0.9 % (NS 500CC IV BAG) ml 05/09/2017 05/09/2017 ONCE&1943 Problems Date Dx Coded Attending Type Code Diagnosis Diagnosed By 08/29/2013 AHSA BOB DDS, Ot 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 08/29/2013 ASHA BOB DDS Ot 521.00 UNSPEC DENTAL CARIES 08/29/2013 ASHA BOB DDS, Ot V74.8 SCREEN-BACTERIAL DIS NEC 02/15/2014 BERNARDO RODRIGES DO Ot 276.8 HYPOPOTASSEMIA 02/15/2014 BERNARDO RODRIGES DO Ot 285.9 ANEMIA NOS 02/15/2014 BERNARDO RODRIGES DO Ot 300.00 ANXIETY STATE NOS 02/15/2014 BERNARDO RODRIGES DO Ot 318.1 SEVERE INTELLECTUAL DISABILITIES 02/15/2014 BERNARDO RODRIGES DO Ot 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 02/15/2014 BERNARDO RODRIGES DO Ot 477.9 ALLERGIC RHINITIS NOS 02/15/2014 BERNARDO RODRIGES DO Ot 518.81 ACUTE RESPIRATORY FAILURE 02/15/2014 BERNARDO RODRIGES DO Ot 530.3 ESOPHAGEAL STRICTURE 02/15/2014 BERNARDO RODRIGES DO Ot 535.40 OTH SPECIFIED GASTRITIS,W/O MENTION OF H 02/15/2014 BERNARDO RODRIGES DO Ot 564.00 UNSPEC CONSTIPATION 02/15/2014 BERNARDO RODRIGES DO Ot 788.30 UNSPECIFIED URINARY INCONTINENCE 02/15/2014 BERNARDO RODRIGES DO Ot 934.9 FB RESPIRATORY TREE NOS 02/15/2014 BERNARDO RODRIGES DO Ot E911 RESP OBSTR-FOOD INHAL 04/20/2015 PAULINO DDS, ASHA Ot 343.2 04/20/2015 PAULINO DDS, ASHA Ot 522.5 04/20/2015 GERALDINE BAILEY, TODD Cervantes Ot 530.81 04/20/2015 GERALDINE BAILEY, TODD Cervantes Ot 786.2 04/20/2015 MARCELLE BAILEY, SUKHWINDER Jalloh Ot 536.49 OTH GASTROSTOMY COMPLICATION 04/20/2015 MARCELLE BAILEY, SUKHWINDER Jalloh Ot V64.3 NO PROC FOR REASONS NEC 11/26/2016 TODD CHANDLER W 799.02 HYPOXEMIA 11/26/2016 TODD CHANDLER W P84 OTHER PROBLEMS WITH 11/26/2016 TODD CHANDLER W 799.02 HYPOXEMIA 11/26/2016 TODD CHANDLER W P84 OTHER PROBLEMS WITH 11/27/2016 TODD CHANDLER W 799.02 HYPOXEMIA 11/27/2016 TODD CHANDLER W P84 OTHER PROBLEMS WITH 11/27/2016 TODD CHANDLER W R09.02 HYPOXEMIA 11/27/2016 TODD CHANDLER W 536.41 INFECTION OF GASTROSTOMY 11/27/2016 TODD CHANDLER W 799.02 HYPOXEMIA 11/27/2016 TODD CHANDLER W K94.22 GASTROSTOMY INFECTION 11/27/2016 TODD CHANDLER W P84 OTHER PROBLEMS WITH 11/27/2016 TODD CHANDLER W R09.02 HYPOXEMIA 11/27/2016 TODD CHANDLER W 536.41 INFECTION OF GASTROSTOMY 11/27/2016 TODD CHANDLER W 799.02 HYPOXEMIA 11/27/2016 TODD CHANDLER W K94.22 GASTROSTOMY INFECTION 11/27/2016 TODD CHANDLER W P84 OTHER PROBLEMS WITH 11/27/2016 TODD CHANDLER W R09.02 HYPOXEMIA 11/28/2016 TODD CHANDLER W 300.00 11/28/2016 TODD CHANDLER W 343.9 11/28/2016 TODD CHANDLER W 536.40 11/28/2016 TODD CHANDLER W 536.41 INFECTION OF GASTROSTOMY 11/28/2016 TODD CHANDLER W 780.60 11/28/2016 TODD CHANDLER A 799.02 HYPOXEMIA 11/28/2016 TODD CHANDLER F41.9 ANXIETY DISORDER, UNSPECIFIED 11/28/2016 GERALDINE TODD Whatley 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, UNSPECIFIED 11/28/2016 CHANDLER TODD Whatley K94.22 GASTROSTOMY INFECTION 11/28/2016 CHANDLER TODD Whatley K94.29 OTHER COMPLICATIONS OF GASTROSTOMY 11/28/2016 CHANDLER TODD Whatley P84 OTHER PROBLEMS WITH 11/28/2016 TODD CHANDLER A R09.02 HYPOXEMIA 11/28/2016 CHANDLER TODD Whatley R50.9 FEVER, UNSPECIFIED 11/28/2016 CHANDLER TODD Whatley V05.9 NEED FOR PROPHYLACTIC VACCINATION AND INOCULATION AGAINST UNSPECIFIED SINGLE DISEASE 11/28/2016 TODD CHANDLER Z23 ENCOUNTER FOR IMMUNIZATION 01/23/2017 MAXI VALERO DO, Ot 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, UNSPECIFIED 01/23/2017 MAXI VALERO DO, Ot J81.1 CHRONIC PULMONARY EDEMA 01/23/2017 MAXI VALERO DO, Ot J96.01 ACUTE RESPIRATORY FAILURE WITH HYPOXIA 01/23/2017 MAXI VALERO DO, Ot R32 UNSPECIFIED URINARY INCONTINENCE 01/23/2017 MAXI VALERO DO, Ot T17.920A FOOD IN RESP TRACT, PART UNSP CAUSING 01/29/2017 MAXI VALERO DO, Ot 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, UNSPECIFIED 01/29/2017 MAXI VALERO DO, Ot J81.1 CHRONIC PULMONARY EDEMA 01/29/2017 MAXI VALERO DO, Ot J96.01 ACUTE RESPIRATORY FAILURE WITH HYPOXIA 01/29/2017 MAXI VALERO DO, Ot R32 UNSPECIFIED URINARY INCONTINENCE 01/29/2017 MAXI VALERO DO, Ot T17.920A FOOD IN RESP TRACT, PART UNSP CAUSING 01/29/2017 MAXI VALERO DO, Ot 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, UNSPECIFIED 01/29/2017 MAXI VALERO DO, Ot J81.1 CHRONIC PULMONARY EDEMA 01/29/2017 MAXI VALERO DO, Ot J96.01 ACUTE RESPIRATORY FAILURE WITH HYPOXIA 01/29/2017 MAXI VALERO DO Ot R32 UNSPECIFIED URINARY INCONTINENCE 01/29/2017 MAXI VALERO DO, Ot T17.920A FOOD IN RESP TRACT, PART UNSP CAUSING 02/05/2017 TODD CHANDLER MD Ot J69.0 PNEUMONITIS DUE TO INHALATION OF FOOD AN 02/25/2017 TODD CHANDLER MD Ot J69.0 PNEUMONITIS DUE TO INHALATION OF FOOD AN 03/04/2017 TODD CHANDLER MD Ot J69.0 PNEUMONITIS DUE TO INHALATION OF FOOD AN 05/06/2017 LOWE DDS, ASHA Ot 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 05/06/2017 LOWE DDS, ASHA Ot 522.5 PERIAPICAL ABSCESS 05/06/2017 TODD CHANDLER MD Ot 530.81 ESOPHAGEAL REFLUX 05/06/2017 TODD CHANDLER MD Ot 786.2 COUGH 05/06/2017 TODD CHANDLER MD Ot J69.0 PNEUMONITIS DUE TO INHALATION OF FOOD AN 05/06/2017 LOWE DDS, ASHA Ot 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 05/06/2017 LOWE DDS, ASHA Ot 522.5 PERIAPICAL ABSCESS 05/06/2017 TODD CHANDLER MD Ot 530.81 ESOPHAGEAL REFLUX 05/06/2017 TODD CHANDLER MD Ot 786.2 COUGH 05/06/2017 TODD CHANDLER MD Ot J69.0 PNEUMONITIS DUE TO INHALATION OF FOOD AN 05/07/2017 ANDRES LOGAN MD Ot K94.29 OTHER COMPLICATIONS OF GASTROSTOMY 05/07/2017 ANDRES LOGAN MD Ot R13.10 DYSPHAGIA, UNSPECIFIED 05/07/2017 ANDRES LOGAN MD Ot R62.50 UNSP LACK OF EXPECTED NORMAL PHYSIOL DEV 05/07/2017 ANDRES LOGAN MD Ot R63.4 ABNORMAL WEIGHT LOSS 05/09/2017 David Bansal 486 PNEUMONIA, ORGANISM UNSPECIFIED 05/09/2017 David Bansal 560.32 FECAL IMPACTION 05/09/2017 David Bansal 780.60 FEVER, UNSPECIFIED 05/09/2017 David Bansal J18.9 PNEUMONIA, UNSPECIFIED ORGANISM 05/09/2017 David Bansal K56.41 FECAL IMPACTION 05/09/2017 David Bansal R50.9 FEVER, UNSPECIFIED 05/12/2017 ANDRES LOGAN MD Ot K94.29 OTHER COMPLICATIONS OF GASTROSTOMY 05/12/2017 ANDRES LOGAN MD, Ot R13.10 DYSPHAGIA, UNSPECIFIED 05/12/2017 ANDRES LOGAN MD Ot R62.50 UNSP LACK OF EXPECTED NORMAL PHYSIOL DEV 05/12/2017 ANDRES LOGAN MD, Ot R63.4 ABNORMAL WEIGHT LOSS 11/12/2017 ANDRES LOGAN MD, Ot K94.23 GASTROSTOMY MALFUNCTION 11/12/2017 ANDRES LOGAN MD, Ot Z01.818 ENCOUNTER FOR OTHER PREPROCEDURAL EXAMIN 11/16/2017 ANDRES LOGAN MD Ot E46 UNSPECIFIED PROTEIN-CALORIE MALNUTRITION 11/16/2017 ANDRES LOGAN MD Ot E86.0 DEHYDRATION 11/16/2017 ANDRES LOGAN MD Ot F72 SEVERE INTELLECTUAL DISABILITIES 11/16/2017 ANDRES LOGAN MD, Ot K59.00 CONSTIPATION, UNSPECIFIED 11/16/2017 ANDRES LOGAN MD Ot K94.23 GASTROSTOMY MALFUNCTION 11/16/2017 ANDRES LOGAN MD, Ot R13.10 DYSPHAGIA, UNSPECIFIED 11/16/2017 ANDRES LOGAN MD Ot E46 UNSPECIFIED PROTEIN-CALORIE MALNUTRITION 11/16/2017 ANDRES LOGAN MD Ot E86.0 DEHYDRATION 11/16/2017 ANDRES LOGAN MD Ot F72 SEVERE INTELLECTUAL DISABILITIES 11/16/2017 ANDRES LOGAN MD, Ot K59.00 CONSTIPATION, UNSPECIFIED 11/16/2017 ANDRES LOGAN MD Ot K94.23 GASTROSTOMY MALFUNCTION 11/16/2017 ANDRES LOGAN MD Ot R13.10 DYSPHAGIA, UNSPECIFIED Procedures Code Description Performed By Performed On 96.71 CONTINUOUS INVASIVE MECHANICAL VENTILATI 02/06/2014 99.15 PARENTERAL INFUSION OF CONCENTRATED NUT. 02/08/2014 42.92 ESOPHAGEAL DILATION 02/09/2014 45.13 OTHER ENDOSCOPY OF SM INTEST 02/09/2014 43.11 PERCUTANEOUS [ENDOSCOPIC] GASTROSTOMY [P 02/10/2014 Results Test Result Range Comprehensive Metabolic Panel - 11/26/16 17:30 Albumin 4.3 g/dL 3.6-5.1 ALP 56 U/L 35-130 ALT 13 U/L 6-45 Anion Gap 18 6-14 AST 17 U/L 2-40 BUN 16 mg/dL 5-25 Calcium 9.6 mg/dL 8.3-10.4 Chloride 107 mmol/L 95-114 CO2 21 mEq/L 22-33 Creat 0.61 mg/dL 0.50-1.50 eGFR 109 mL/min/1.73m2 >59 Globulin 3.1 g/dL 2.3-3.5 Glucose 85 mg/dL 70-110 Osmo 294 280-295 Potassium 3.5 mmol/L 3.5-5.3 Sodium 142 mmol/L 134-148 TBil 0.5 mg/dL 0.2-1.2 TP 7.4 g/dL 6.0-8.3 Blood Culture - 11/26/16 17:30 PRELIM CULTURE RESULTS Blood Culture Negative, No Growth Day 1 FINAL CULTURE RESULTS Blood Culture Negative, No Growth Day 5 MEDIA PLATED Setup at 17:58 11/26/2016 CULTURE SOURCE drawn via IV start in left arm MRSA Screen - 11/26/16 17:30 FINAL CULTURE RESULTS MRSA Negative Nasal Culture MEDIA PLATED Setup at 18:10 on 11/26/2016 Blood Culture - 11/26/16 17:35 PRELIM CULTURE RESULTS Blood Culture Negative, No Growth Day 1 FINAL CULTURE RESULTS Blood Culture Negative, No Growth Day 5 MEDIA PLATED Setup at 16:01 on 11/26/2016 1800 CULTURE SOURCE drawn at Right AC Complete blood count (CBC) with automated white blood cell (WBC) differential - 01/21/17 18:21 Blood leukocytes automated count (number/volume) 12.0 10*3/uL 4.3-11.0 Blood erythrocytes automated count (number/volume) 4.39 10*6/uL 4.35-5.85 Venous blood hemoglobin measurement (mass/volume) 14.0 g/dL 11.5-16.0 Blood hematocrit (volume fraction) 42 % 35-52 Automated erythrocyte mean corpuscular volume 96 [foz_us] 80-99 Automated erythrocyte mean corpuscular hemoglobin (mass per erythrocyte) 32 pg 25-34 Automated erythrocyte mean corpuscular hemoglobin concentration measurement ( mass/volume) 33 g/dL 32-36 Automated erythrocyte distribution width ratio 12.3 % 10.0-14.5 Automated blood platelet count (count/volume) 226 10*3/uL 130-400 Automated blood platelet mean volume measurement 11.7 [foz_us] 7.4-10.4 Automated blood neutrophils/100 leukocytes 45 % 42-75 Automated blood lymphocytes/100 leukocytes 41 % 12-44 Blood monocytes/100 leukocytes 5 % 0-12 Automated blood eosinophils/100 leukocytes 8 % 0-10 Automated blood basophils/100 leukocytes 1 % 0-10 Blood neutrophils automated count (number/volume) 5.5 10*3 1.8-7.8 Blood lymphocytes automated count (number/volume) 4.9 10*3 1.0-4.0 Blood monocytes automated count (number/volume) 0.6 10*3 0.0-1.0 Automated eosinophil count 1.0 10*3/uL 0.0-0.3 Automated blood basophil count (count/volume) 0.1 10*3/uL 0.0-0.1 Comprehensive metabolic panel - 01/21/17 18:40 Serum or plasma sodium measurement (moles/volume) 142 mmol/L 135-145 Serum or plasma potassium measurement (moles/volume) 3.7 mmol/L 3.6-5.0 Serum or plasma chloride measurement (moles/volume) 106 mmol/L 98-107 Carbon dioxide 24 mmol/L 21-32 Serum or plasma anion gap determination (moles/volume) 12 mmol/L 5-14 Serum or plasma urea nitrogen measurement (mass/volume) 18 mg/dL 7-18 Serum or plasma creatinine measurement (mass/volume) 0.63 mg/dL 0.60-1.30 Serum or plasma urea nitrogen/creatinine mass ratio 29 NRG Serum or plasma creatinine measurement with calculation of estimated glomerular filtration rate > NRG Serum or plasma glucose measurement (mass/volume) 93 mg/dL 70-105 Serum or plasma calcium measurement (mass/volume) 9.2 mg/dL 8.5-10.1 Serum or plasma total bilirubin measurement (mass/volume) 0.7 mg/dL 0.1-1.0 Serum or plasma alkaline phosphatase measurement (enzymatic activity/volume) 64 U/L 40-136 Serum or plasma aspartate aminotransferase measurement (enzymatic activity/ volume) 19 U/L 5-34 Serum or plasma alanine aminotransferase measurement (enzymatic activity/volume ) 15 U/L 0-55 Serum or plasma protein measurement (mass/volume) 7.3 g/dL 6.4-8.2 Serum or plasma albumin measurement (mass/volume) 4.4 g/dL 3.2-4.5 Methicillin resistant Staphylococcus aureus (MRSA) screening culture - 20:45 Methicillin resistant Staphylococcus aureus (MRSA) screening culture NEG NRG Arterial blood gas measurement - 01/22/17 00:39 Blood pCO2 26 mm[Hg] 35-45 Blood pO2 65 mm[Hg] 79-93 Arterial blood bicarbonate measurement (moles/volume) 19 mmol/L 23-27 Arterial blood base excess by calculation -3.7 mmol/L - 2.5-2.5 Arterial blood oxygen saturation measurement 96 % 94-100 * Inhaled oxygen flow rate 40% NRG Arterial blood pH measurement with patient temperature correction 7.48 7.37-7.43 Arterial blood carbon dioxide, total measurement (moles/volume) 20.1 mmol/L 21.0-31.0 Body site RT RAD NRG Assessment of wrist artery patency prior to arterial puncture YES- POS NRG Setting of ventilation mode NO NRG Measurement of body temperature 97.6 NRG Complete blood count (CBC) with automated white blood cell (WBC) differential - 01/22/17 03:45 Blood leukocytes automated count (number/volume) 7.9 10*3/uL 4.3-11.0 Blood erythrocytes automated count (number/volume) 3.72 10*6/uL 4.35-5.85 Venous blood hemoglobin measurement (mass/volume) 11.7 g/dL 11.5-16.0 Blood hematocrit (volume fraction) 36 % 35-52 Automated erythrocyte mean corpuscular volume 96 [foz_us] 80-99 Automated erythrocyte mean corpuscular hemoglobin (mass per erythrocyte) 32 pg 25-34 Automated erythrocyte mean corpuscular hemoglobin concentration measurement ( mass/volume) 33 g/dL 32-36 Automated erythrocyte distribution width ratio 12.1 % 10.0-14.5 Automated blood platelet count (count/volume) 173 10*3/uL 130-400 Automated blood platelet mean volume measurement 11.8 [foz_us] 7.4-10.4 Automated blood neutrophils/100 leukocytes 78 % 42-75 Automated blood lymphocytes/100 leukocytes 17 % 12-44 Blood monocytes/100 leukocytes 5 % 0-12 Automated blood eosinophils/100 leukocytes 0 % 0-10 Automated blood basophils/100 leukocytes 0 % 0-10 Blood neutrophils automated count (number/volume) 6.2 10*3 1.8-7.8 Blood lymphocytes automated count (number/volume) 1.3 10*3 1.0-4.0 Blood monocytes automated count (number/volume) 0.4 10*3 0.0-1.0 Automated eosinophil count 0.0 10*3/uL 0.0-0.3 Automated blood basophil count (count/volume) 0.0 10*3/uL 0.0-0.1 Comprehensive metabolic panel - 01/22/17 03:45 Serum or plasma sodium measurement (moles/volume) 144 mmol/L 135-145 Serum or plasma potassium measurement (moles/volume) 2.9 mmol/L 3.6-5.0 Serum or plasma chloride measurement (moles/volume) 112 mmol/L 98-107 Carbon dioxide 19 mmol/L 21-32 Serum or plasma anion gap determination (moles/volume) 13 mmol/L 5-14 Serum or plasma urea nitrogen measurement (mass/volume) 17 mg/dL 7-18 Serum or plasma creatinine measurement (mass/volume) 0.60 mg/dL 0.60-1.30 Serum or plasma urea nitrogen/creatinine mass ratio 28 NRG Serum or plasma creatinine measurement with calculation of estimated glomerular filtration rate > NRG Serum or plasma glucose measurement (mass/volume) 116 mg/dL 70-105 Serum or plasma calcium measurement (mass/volume) 7.8 mg/dL 8.5-10.1 Serum or plasma total bilirubin measurement (mass/volume) 1.1 mg/dL 0.1-1.0 Serum or plasma alkaline phosphatase measurement (enzymatic activity/volume) 49 U/L 40-136 Serum or plasma aspartate aminotransferase measurement (enzymatic activity/ volume) 14 U/L 5-34 Serum or plasma alanine aminotransferase measurement (enzymatic activity/volume ) 11 U/L 0-55 Serum or plasma protein measurement (mass/volume) 5.4 g/dL 6.4-8.2 Serum or plasma albumin measurement (mass/volume) 3.4 g/dL 3.2-4.5 Serum or plasma phosphate measurement (mass/volume) - 01/22/17 03:45 Serum or plasma phosphate measurement (mass/volume) 1.7 mg/dL 2.3-4.7 Magnesium - 01/22/17 03:45 Magnesium 1.6 mg/dL 1.8-2.4 Complete blood count (CBC) with automated white blood cell (WBC) differential - 01/23/17 03:15 Blood leukocytes automated count (number/volume) 7.3 10*3/uL 4.3-11.0 Blood erythrocytes automated count (number/volume) 3.00 10*6/uL 4.35-5.85 Venous blood hemoglobin measurement (mass/volume) 9.6 g/dL 11.5-16.0 Blood hematocrit (volume fraction) 31 % 35-52 Automated erythrocyte mean corpuscular volume 102 [foz_us] 80-99 Automated erythrocyte mean corpuscular hemoglobin (mass per erythrocyte) 32 pg 25-34 Automated erythrocyte mean corpuscular hemoglobin concentration measurement ( mass/volume) 32 g/dL 32-36 Automated erythrocyte distribution width ratio 12.6 % 10.0-14.5 Automated blood platelet count (count/volume) 154 10*3/uL 130-400 Automated blood platelet mean volume measurement 12.0 [foz_us] 7.4-10.4 Automated blood neutrophils/100 leukocytes 58 % 42-75 Automated blood lymphocytes/100 leukocytes 36 % 12-44 Blood monocytes/100 leukocytes 3 % 0-12 Automated blood eosinophils/100 leukocytes 3 % 0-10 Automated blood basophils/100 leukocytes 0 % 0-10 Blood neutrophils automated count (number/volume) 4.2 10*3 1.8-7.8 Blood lymphocytes automated count (number/volume) 2.6 10*3 1.0-4.0 Blood monocytes automated count (number/volume) 0.3 10*3 0.0-1.0 Automated eosinophil count 0.2 10*3/uL 0.0-0.3 Automated blood basophil count (count/volume) 0.0 10*3/uL 0.0-0.1 Whole blood basic metabolic panel - 01/23/17 03:15 Serum or plasma sodium measurement (moles/volume) 146 mmol/L 135-145 Serum or plasma potassium measurement (moles/volume) 3.9 mmol/L 3.6-5.0 Serum or plasma chloride measurement (moles/volume) 122 mmol/L 98-107 Carbon dioxide 15 mmol/L 21-32 Serum or plasma anion gap determination (moles/volume) 9 mmol/L 5-14 Serum or plasma urea nitrogen measurement (mass/volume) 12 mg/dL 7-18 Serum or plasma creatinine measurement (mass/volume) 0.57 mg/dL 0.60-1.30 Serum or plasma urea nitrogen/creatinine mass ratio 21 NRG Serum or plasma creatinine measurement with calculation of estimated glomerular filtration rate > NRG Serum or plasma glucose measurement (mass/volume) 73 mg/dL 70-105 Serum or plasma calcium measurement (mass/volume) 6.8 mg/dL 8.5-10.1 Serum or plasma phosphate measurement (mass/volume) - 01/23/17 03:15 Serum or plasma phosphate measurement (mass/volume) 2.8 mg/dL 2.3-4.7 Magnesium - 01/23/17 03:15 Magnesium 2.1 mg/dL 1.8-2.4 Comprehensive Metabolic Panel - 05/09/17 18:48 Albumin 3.8 g/dL 3.6-5.1 ALP 74 U/L 35-130 ALT 54 Result Verified by Repeat Analysis U/L 6-45 Anion Gap 16 6-14 AST 22 U/L 2-40 BUN 36 mg/dL 5-25 Calcium 8.8 mg/dL 8.3-10.4 Chloride 114 mmol/L 95-114 CO2 27 mEq/L 22-33 Creat 0.70 mg/dL 0.50-1.50 eGFR 93 mL/min/1.73m2 >59 Globulin 2.1 g/dL 2.3-3.5 Glucose 119 mg/dL 70-110 Osmo 324 280-295 Potassium 3.7 mmol/L 3.5-5.3 Sodium 153 Result Verified by Repeat Analysis mmol/L 134- 148 TBil 0.6 mg/dL 0.2-1.2 TP 5.9 g/dL 6.0-8.3 Urine Culture - 05/09/17 19:08 PRELIM CULTURE RESULTS 20,000-50,000 Gram Positive and Gram Negative Mixed Kavita [id number] Skin Contaminant FINAL CULTURE RESULTS 20,000-50,000 Gram Positive and Gram Negative Mixed Kavita [id number] Skin Contaminant [id number] Further Workup done MEDIA PLATED Setup at 19:12 on 05/09/2017 CULTURE SOURCE cath urine Lipid Panel - 05/31/18 13:42 C/HDL 4.6 3.7-6.7 Cholesterol 196 mg/dL 100-240 HDL 43 mg/dL 30-85 LDL-Calculated 136 mg/dL 0-100 Trig 84 mg/dL 35-160 VLDL 17 mg/dL 0-42 Encounters ACCT No. Visit Date/Time Discharge Status Pt. Type Provider Facility Loc./Unit Complaint [id number] 11/13/2017 09:24:00 11/13/2017 23:59:59 CLS Outpatient ANDRES LOGAN MD [facility] MALFUNCTIONING TUBE [id number] 11/11/2017 09:28:00 11/11/2017 12:44:00 DIS Outpatient ANDRES LOGAN MD [facility] PREOP REPLACE FEEDING TUBE [id number] 05/06/2017 09:03:00 05/06/2017 23:59:59 CLS Outpatient ANDRES LOGAN MD [facility] MALFUNCTIONING TUBE [id number] 02/03/2017 14:49:00 02/03/2017 23:59:59 CLS Outpatient TODD CHANDLER MD [facility] RAD ASPIRATION,PNEUMONIA FOLLOW UP [id number] 01/21/2017 19:11:00 01/23/2017 11:35:00 DIS Outpatient MAXI VALERO DO [facility] ASPIRATION,CEREBAL PALSY [id number] 04/20/2015 10:43:00 04/20/2015 11:15:00 DIS Outpatient SUKHWINDER IBANEZ MD [facility] NONFUNCTIONING PEG TUBE [id number] 03/08/2014 09:55:00 03/08/2014 23:59:59 CLS Outpatient TODD CHANDLER MD [facility] RAD RCURRENT ASPIRATION, PNA WITH COUGH AFTER TUBE FEED [id number] 08/29/2013 10:11:00 08/29/2013 16:15:00 DIS Out[facility] [id number] 08/24/2013 11:52:00 08/24/2013 23:59:59 CLS Outpatient PAULINO YATESASHA Martinez [facility] PREOP ABSCESSES [id number] 06/23/2018 11:45:00 PEN Preadmit ANDRES LOGAN MD [facility] MALFUNCTIONING PEG TUBE [id number] 02/06/2014 16:06:00 ACT Inpatient BERNARDO RODRIGES DO [facility] 4TH RESPITORY FAILURE, [id number] 2018 04:18:00 2018 04:42:00 DIS Outpatient David Bansal [id number] 05/31/2018 13:33:00 05/31/2018 23:59:00 DIS Outpatient TODD CHANDLER [id number] 05/09/2017 18:32:00 05/09/2017 22:16:00 DIS Outpatient David Bansal [facility] ER [id number] 11/26/2016 17:16:00 11/28/2016 11:20:00 DIS Outpatient GERALDINE TODD [facility] ICU [id number] 11/26/2016 18:52:22 Document Registration [email or web address] 04/20/2015 10:44:52 ACT Document Registration
[2018-06-23 11:20] VITALS: BP 75/67
--- NOTE | 2018-06-23 11:43 | Progress Note-Post Operative ---
Post-Operative Progess Note Surgeon (s)/Veneer Patcher (s) Surgeon ANDRES LOGAN MD Veneer Patcher: none Pre-Operative Diagnosis dysphagia, malnutrition, dehydration Post-Operative Diagnosis same Procedure & Operative Findings Date of Procedure 06/23/18 Procedure Performed/Findings removal replacement gastrostomy tube. Anesthesia Type none Estimated Blood Loss Estimated blood loss (mL): minimal Specimens/Packing Specimens Removed none ANDRES LOGAN MD Jun 23, 2018 11:43 am
--- NOTE | 2018-06-23 11:50 | Discharge Inst-Surgical ---
D/C Lap Instructions-DESMOND Follow Up PRN Activity as tolerated OK to use gastrostomy tube. Drink 64 fluid oz or more of fluids per day. Symptoms to Report: Fever over 101 degree F, Nausea/Vomiting If any problems/questions: Contact your physician or go to Emergency Room ANDRES LOGAN MD Jun 23, 2018 11:50 am
--- NOTE | 2018-06-23 13:16 | OPERATIVE REPORT ---
DATE OF SERVICE: 06/23/2018 ATTENDING PRIMARY CARE PHYSICIAN: Dr. Cristy Brumfield. PREPROCEDURE DIAGNOSIS: Malfunctioning gastrostomy tube with history of dysphagia. POSTPROCEDURE DIAGNOSIS: Malfunctioning gastrostomy tube with history of dysphagia. PROCEDURE: Removal and replacement of gastrostomy tube. SURGEON: Andres Leroy MD ANESTHESIA: None. DISPOSITION: The patient tolerated the procedure well. INDICATIONS: The patient is a 43-year-old female known to us. She has a history of intellectual delay. She did develop dysphagia approximately 6 years ago requiring a feeding tube. She uses this for current daily tube feedings, hydration and medication administration. She has had this replaced several times due to malfunctioning of the tube as well as dislodgement. She reports that the tube was dislodged 2 days ago and was seen in the Emergency Department where an 18-[place] Lee catheter was placed. She is now in need of replacement with a more temporary and functional tube. DESCRIPTION OF PROCEDURE: The lee balloon was decompressed and removed. A 22-[place] ALYCE gastrostomy tube was then placed through the opening with minimal resistance and the balloon insufflated with sterile water to 10 mL with no resistance and then the gastrostomy tube pulled back until the balloon was abutting the anterior stomach wall. The external rubber bolster was then placed snug over the skin. The patient tolerated the procedure well. The gastrostomy tube may be accessed and used at any time. Job ID: [id number] DocumentID: [id number] Dictated Date: 06/23/2018 11:58:16 Thrill Performer Date: 06/23/2018 13:15:47 Dictated By: ANDRES LEROY MD [facility]
== END 2018-06-23 11:40 | disposition home or self-care (01) ==
LOC: SDC 11:01
PROVIDERS: ATTEND Surgery
DX: K94.23 Gastrostomy malfunction (principal); R13.10 Dysphagia, unspecified; K59.00 Constipation, unspecified

== ENCOUNTER 2019-04-15 19:18 | Emergency (ER) | payer MEDICARE, MEDICAID ==
[~2019-04-15] VITALS: Ht 149.9 cm; Wt 36.3 kg
--- NOTE | 2019-04-15 19:25 | NUR ---
peg tube replaced with new 22fr tube. pt tolerated well. informed pt/family of plan for xray to check placement.
--- NOTE | 2019-04-15 19:40 | ED GI ---
General Chief Complaint: Catheter/Drain/Tube Problems Stated Complaint: FEEDING TUBE CAME OUT Source of Information: Patient, Family Exam Limitations: No Limitations History of Present Illness Date Seen by Provider: Apr 15, 2019 Time Seen by Provider: 19:35 Initial Comments Patient presents to ER by private conveyance with her caregiver and family and chief complaint that her PEG tube was displaced about one hour prior to arrival. They called ahead of time. She uses a 22 [place]an PEG tube and the tube looks all of them. It was an accidental displacement by the patient. No fevers chills n ausea vomiting diarrhea. Allergies and Home Medications Allergies Coded Allergies: Iodinated Contrast Media - Oral and (Unverified Allergy, Unknown, RASH, 02/09/14) Home Medications Lactulose 10 Gm/15 Ml Solution, 15 ML PEG DAILY, (Reported) Loratadine 5 Mg/5 Ml Solution, 5 ML PEG DAILY, (Reported) Patient Home Medication List Home Medication List Reviewed: Yes Review of Systems Review of Systems Constitutional: No chills, No fever EENTM: No Blurred Vision, No Double Vision Respiratory: Denies Cough, Denies Shortness of Air Cardiovascular: Denies Chest Pain, Denies Lightheadedness Gastrointestinal: Denies Constipated, Denies Diarrhea, Denies Nausea Past Zgteocs-Tvffhc-Wtzrih Hx Patient Social History Alcohol Use: Denies Use Recreational Drug Use: No Smoking Status: Never a Smoker Recent Foreign Travel: No Contact w/Someone Who Travel: No Recent Hopitalizations: No Seasonal Allergies Seasonal Allergies: Yes Past Medical History Surgeries: Yes (PEG TUBE , TUBES IN EARS,) Orthopedic Respiratory: No Currently Using CPAP: No Currently Using BIPAP: No Cardiac: No Neurological: Yes (SEVERE CP, UNABLE TO COMMUNICATE) Reproductive Disorders: No Genitourinary: No Gastrointestinal: Yes (CONSTIPATION) Chronic Constipation Musculoskeletal: Yes (SEVERE CP) Endocrine: No HEENT: No Cancer: No Psychosocial: No Integumentary: No Blood Disorders: No Family Medical History Cancer 19 FATHER (SMALL CELL LUNG.) Family history: Cardiovascular disease 19 MOTHER (X2 STENTS) Family history: Diabetes mellitus 19 MOTHER Family history: Hypertension 19 MOTHER History of - disorder 19 FATHER (CEREBRAL PALSY) G8 SISTER (MUSCLE DISEASE) Hypercholesterolemia 19 MOTHER Physical Exam Vital Signs Vital Signs - First Documented 04/15/19 19:22 Temp 98.2 Pulse 78 Resp 20 B/P (MAP) 144/99 (114) Pulse Ox 99 O2 Delivery Room Air Capillary Refill : Height/Weight/BMI Height: 4'11.00" Weight: 80lbs. 0.0oz. 36.309494sl; 16.2 BMI Method:Stated General Appearance: WD/WN, no apparent distress HEENT: PERRL/EOMI, normal ENT inspection, pharynx normal Neck: non-tender, full range of motion, normal inspection Respiratory: lungs clear, normal breath sounds, no respiratory distress, no accessory muscle use Cardiovascular: normal peripheral pulses, regular rate, rhythm Peripheral Pulses: 2+ Radial Pulses (R), 2+ Radial Pulses (L) Gastrointestinal: normal bowel sounds, non tender, soft, other (P) Neurologic/Psychiatric: alert Skin: normal color, warm/dry Procedures/Interventions Date of ETT Placement: Jan 21, 2017 Time of ETT Placement: 2324 Additional Procedures: gastric tube replacement Progress The PEG tube replacement heavy and dipped and at PAC of [place] and then easily passed on first attempt through the ostomy. Patient tolerated procedure well. 10 cc of normal saline were inflated into the balloon. Patient sent to x-ray. Progress/Results/Core Measures Results/Orders My Orders Orders - DAVID BETH Peg Tube Check (04/15/19 19:32) Diatrizoate Meglum/Sodium 37% (Gastrogra (04/15/19 19:45) Vital Signs/I&O 04/15/19 04/15/19 19:22 20:05 Temp 98.2 98.2 Pulse 78 78 Resp 20 20 B/P (MAP) 144/99 (114) 144/99 (114) Pulse Ox 99 99 O2 Delivery Room Air Progress Progress Note #1: Time: 19:37 Progress Note Previous PEG tube was inspected and found to have the bulb was ruptured. The site was easily reintubated using a 22 Chilean PEG tube of the same brand. Provided by ER. We will now get a PEG tube check x-ray. Progress Note #2: Time: 20:05 Progress Note We retracted the old about 4 cm and receptive bolster. Should be in good position. Withdraws and flushes easily. We'll allow her to go home. Diagnostic Imaging Diagonstic Imaging: Xray Plain Films/CT/US/NM/MRI: abdomen (PEG tube check) Comments Duodenum lights up with the stomach gas bubble does not have contrast. Suspect that the PEG tube distal end is in the antrum of the stomach or duodenum. Limited evaluation of the proximal abdomen with portions of the stomach and proximal small bowel Mason Roland images. The visualized contrast does extend in the distal stomach/proximal small bowel loops. Not mentioned above a small hiatal hernia is possible. Reviewed: Reviewed by Me Departure Impression Primary Impression: PEG tube malfunction Disposition: HOME, SELF-CARE Condition: Stable Departure-Patient Inst. Decision time for Depature: 20:05 Referrals: TODD CHANDLER MD (PCP/Family) Primary Care Physician Patient Instructions: How to Care for Your PEG Tube Add. Discharge Instructions: Continue to use her PEG tube as directed. Follow-up with primary care if needed. All discharge instructions reviewed with patient and/or family. Voiced understanding. DAVID BETH Apr 15, 2019 19:40
[2019-04-15] MEDS ORDERED: DIATRIZOATE MEGLUM/SODIUM 37% 120 ML (GASTROGRAFIN) PO ONE (19:45)
[2019-04-15 20:05] VITALS: BP 144/99
--- NOTE | 2019-04-15 20:28 | Diagnostic Imaging Report ---
INDICATION: Check PEG tube placement. EXAMINATION: Abdomen with contrast, 04/15/2019. FINDINGS: Three views of the abdomen were provided. Contrast was placed through a PEG tube with injection of 30 cc of Gastrografin to check patency. Contrast is seen extending through the PEG tube and into the stomach. Proximal stomach is not included on the frontal images limiting evaluation of these regions; however, the visualized bowel loops do demonstrate contrast within the proximal small bowel loops. A fair amount of stool throughout the colon is seen to the rectosigmoid consistent with constipation. IMPRESSION: Limited evaluation of the proximal abdomen with portions of the stomach and proximal small bowel not included on all images. The visualized contrast does extend into the distal stomach/proximal small bowel loops. Not mentioned above, a small hiatal hernia is possible. Dictated by: Dictated on workstation # [id number]
--- OUTSIDE RECORDS SUMMARY | 2019-04-15 21:59 | XMS REPORT | Continuity of Care Document ---
Author Organization Unknown Address Unknown Allergies Active Description Code Type Severity Reaction Onset Reported/Identified Relationship to Patient Clinical Status Yes CONTRAST DYE CONTRAST DYE SEVERE Yes NO KNOWN DRUG ALLERGIES NO KNOWN DRUG ALLERG UNKNOWN Yes CONTRAST DYE SEVERE DERMATOLOGICAL - HIV Yes NO KNOWN DRUG ALLERGIES UNKNOWN NO KNOWN DRUG ALLERG Yes Iodinated Contrast Media - IV Dye [id number] Drug Allergy Unknown RASH 02/09/2014 Yes Iodinated Contrast Media - Oral and [id number] Drug Allergy Unknown RASH 02/09/2014 Yes Iodinated Contrast- Oral and IV Dye [id number] Drug Allergy Unknown RASH 02/09/2014 Medications Medication Packaging Start Date Stop Date [...] MG 11/26/2016 12/03/2016 PRN Q8H Fluarix Quad 6056-8286 (PF) (Influenza [id number] 36mos up(PF)) IM syringe 11/26/2016 11/26/2016 ONCE&2313 Fluarix Quad 5592-7063 (PF) (Influenza [id number] 36mos up(PF)) IM syringe ML 11/26/2016 11/26/2016 ONCE&2323 LORATADINE TAB 10 MG (CLARITIN) MG 11/27/2016 12/03/2016 Daily&0900 CEFTRIAXONE PREMIX IV BAG IV 1 GM/50CC (ROCEPHIN PREMIX IV BAG) GM 11/27/2016 12/06/2016 Daily&1800 ACETAMINOPHEN SUPPOS SUP 650 MG (TYLENOL) MG 11/27/2016 12/04/2016 PRN Q6H MORPHINE SYRINGE INJ 2 MG/CC MG 11/27/2016 11/27/2016 ONCE&1715 LACTULOSE SYRUP LIQ 20 GM/30CC (CHRONULAC SYRUP) GM 11/27/2016 11/27/2016 ONCE&2100 NORMAL SALINE 500CC IV BAG INJ 0.9 % (NS 500CC IV BAG) ml 05/09/2017 05/09/2017 ONCE&1943 Problems Date Dx Coded Attending Type Code Diagnosis Diagnosed By 08/29/2013 ASHA BOB DDS, Ot 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 08/29/2013 ASHA BOB DDS, Ot 521.00 UNSPEC DENTAL CARIES 08/29/2013 ASHA [...] DO Ot E911 RESP OBSTR-FOOD INHAL 04/20/2015 ASHA BOB DDS, Ot 343.2 04/20/2015 JOHNIEBrien DDS, ASHA Ot 522.5 04/20/2015 GERALDINE BAILEY, [...] 11/28/2016 TODD CHANDLER W 300.00 11/28/2016 TODD CHNADLER W 343.9 11/28/2016 TODD CHANDLER W 536.40 11/28/2016 TODD CHANDLER W 536.41 INFECTION OF GASTROSTOMY 11/28/2016 TODD CHANDLER W 780.60 11/28/2016 TODD CHANDLER A 799.02 HYPOXEMIA 11/28/2016 TODD CHANDLER W F41.9 ANXIETY DISORDER, UNSPECIFIED 11/28/2016 GERALDINE TODD W 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, UNSPECIFIED 11/28/2016 CHANDLER TODD Whatley K94.22 GASTROSTOMY INFECTION 11/28/2016 GERALDINE TODD Whatley K94.29 OTHER COMPLICATIONS OF GASTROSTOMY 11/28/2016 GERALDINE TODD Whatley P84 OTHER PROBLEMS WITH 11/28/2016 GERALDINE TODD A R09.02 HYPOXEMIA 11/28/2016 GERALDINE TODD Whatley R50.9 FEVER, UNSPECIFIED 11/28/2016 CHANDLER TODD Whatley V05.9 NEED FOR PROPHYLACTIC VACCINATION AND INOCULATION AGAINST UNSPECIFIED SINGLE DISEASE 11/28/2016 CHANDLER TODD Whatley Z23 ENCOUNTER FOR IMMUNIZATION 01/23/2017 MAXI VALERO [...] J81.1 CHRONIC PULMONARY EDEMA 01/29/2017 MAXI VALERO DO Ot J96.01 ACUTE RESPIRATORY FAILURE WITH HYPOXIA 01/29/2017 MAXI VALERO DO Ot R32 UNSPECIFIED URINARY INCONTINENCE 01/29/2017 MAXI VALERO DO Ot T17.920A FOOD IN RESP TRACT, PART UNSP CAUSING 01/29/2017 MAXI VALERO DO, Ot 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, UNSPECIFIED 01/29/2017 MAXI VALERO DO, Ot J81.1 CHRONIC PULMONARY EDEMA 01/29/2017 MAXI VALERO DO, Ot J96.01 ACUTE RESPIRATORY FAILURE WITH HYPOXIA 01/29/2017 MAXI VALERO DO Ot R32 UNSPECIFIED URINARY INCONTINENCE 01/29/2017 MXAI VALERO DO Ot T17.920A FOOD IN RESP TRACT, PART [...] INHALATION OF FOOD AN 05/07/2017 ANDRES LOGAN MD, Ot K94.29 OTHER COMPLICATIONS OF GASTROSTOMY 05/07/2017 [...] OTHER COMPLICATIONS OF GASTROSTOMY 05/12/2017 ANDRES LOGAN MD Ot R13.10 DYSPHAGIA, UNSPECIFIED 05/12/2017 ANDRES LOGAN MD, Ot R62.50 UNSP LACK OF EXPECTED NORMAL PHYSIOL DEV 05/12/2017 ANDRES LOGAN MD, Ot R63.4 ABNORMAL WEIGHT LOSS 11/12/2017 ANDRES LOGAN MD Ot K94.23 GASTROSTOMY MALFUNCTION 11/12/2017 ANDRES LOGAN MD, Ot Z01.818 ENCOUNTER FOR OTHER PREPROCEDURAL EXAMIN 11/16/2017 ANDRES LOGAN MD Ot E46 UNSPECIFIED PROTEIN-CALORIE MALNUTRITION 11/16/2017 ANDRES LOGAN MD Ot E86.0 DEHYDRATION 11/16/2017 ANDRES LOGAN MD Ot F72 SEVERE INTELLECTUAL DISABILITIES 11/16/2017 ANDRES LOGAN MD Ot K59.00 CONSTIPATION, UNSPECIFIED 11/16/2017 ANDRES LOGAN MD Ot K94.23 GASTROSTOMY MALFUNCTION 11/16/2017 ANDRES LOGAN MD, Ot R13.10 DYSPHAGIA, UNSPECIFIED 11/16/2017 ANDRES LOGAN MD Ot E46 UNSPECIFIED PROTEIN-CALORIE MALNUTRITION 11/16/2017 ANDRES LOGAN MD Ot E86.0 DEHYDRATION 11/16/2017 ANDRES LOGAN MD Ot F72 SEVERE INTELLECTUAL DISABILITIES 11/16/2017 ANDRES LOGAN MD Ot K59.00 CONSTIPATION, UNSPECIFIED 11/16/2017 ANDRES LOGAN MD Ot K94.23 GASTROSTOMY MALFUNCTION 11/16/2017 ANDRES LOGAN MD Ot R13.10 DYSPHAGIA, UNSPECIFIED 2018 David Bansal V55.1 ATTENTION TO GASTROSTOMY 2018 David Bansal Z43.1 ENCOUNTER FOR ATTENTION TO GASTROSTOMY 06/22/2018 ANDRES LOGAN MD, Ot Z01.818 ENCOUNTER FOR OTHER PREPROCEDURAL EXAMIN 06/23/2018 ANDRES LOGAN MD Ot K59.00 CONSTIPATION, UNSPECIFIED 06/23/2018 ANDRES LOGAN MD Ot K94.23 GASTROSTOMY MALFUNCTION 06/23/2018 ANDRES LOGAN MD Ot R13.10 DYSPHAGIA, UNSPECIFIED 06/25/2018 ANDRES LOGAN MD Ot K59.00 CONSTIPATION, UNSPECIFIED 06/25/2018 ANDRES LOGAN MD Ot K94.23 GASTROSTOMY MALFUNCTION 06/25/2018 ANDRES LOGAN MD Ot R13.10 DYSPHAGIA, UNSPECIFIED 06/25/2018 ANDRES LOGAN MD Ot R62.50 UNSP LACK OF EXPECTED NORMAL PHYSIOL DEV 06/25/2018 ANDRES LOGAN MD Ot K59.00 CONSTIPATION, UNSPECIFIED 06/25/2018 ANDRES LOGAN MD Ot K94.23 GASTROSTOMY MALFUNCTION 06/25/2018 ANDRES LOGAN MD Ot R13.10 DYSPHAGIA, UNSPECIFIED 06/25/2018 ANDRES LOGAN MD Ot R62.50 UNSP LACK OF EXPECTED NORMAL PHYSIOL DEV 06/29/2018 ANDRES LOGAN MD Ot K59.00 CONSTIPATION, UNSPECIFIED 06/29/2018 ANDRES LOGAN MD Ot K94.23 GASTROSTOMY MALFUNCTION 06/29/2018 ANDERS LOGAN MD Ot R13.10 DYSPHAGIA, UNSPECIFIED 06/29/2018 ANDRES LOGAN MD Ot K59.00 CONSTIPATION, UNSPECIFIED 06/29/2018 ANDRES LOGAN MD Ot K94.23 GASTROSTOMY MALFUNCTION 06/29/2018 ANDRES LOGAN MD Ot R13.10 DYSPHAGIA, UNSPECIFIED 06/30/2018 ANDRES LOGAN MD Ot K59.00 CONSTIPATION, UNSPECIFIED 06/30/2018 ANDRES LOGAN MD Ot K94.23 GASTROSTOMY MALFUNCTION 06/30/2018 ANDRES LOGAN MD Ot R13.10 DYSPHAGIA, UNSPECIFIED [...] Automated erythrocyte mean corpuscular hemoglobin concentration measurement (mass/volume) 33 g/dL 32-36 Automated erythrocyte distribution width ratio 12.3 % 10.0- 14.5 Automated blood platelet count (count/volume) 226 10*3/uL [...] Blood monocytes automated count (number/volume) 0.6 10*3 0.0- 1.0 Automated eosinophil count 1.0 10*3/uL 0.0-0.3 Automated [...] Serum or plasma aspartate aminotransferase measurement (enzymatic activity/volume) 19 U/L 5-34 Serum or plasma alanine aminotransferase measurement (enzymatic activity/volume) 15 U/L 0-55 Serum or plasma protein measurement (mass/volume) 7.3 g/dL 6.4-8.2 Serum or plasma albumin measurement (mass/volume) 4.4 g/dL 3.2-4.5 Methicillin resistant Staphylococcus aureus (MRSA) screening culture - 01/21/17 20:45 Methicillin resistant Staphylococcus aureus (MRSA) screening culture NEG NR Arterial blood gas measurement - 01/22/17 00:39 Blood pCO2 26 mm[Hg] 35-45 Blood pO2 65 mm[Hg] 79-93 Arterial blood bicarbonate measurement (moles/volume) 19 mmol/L 23-27 Arterial blood base excess by calculation -3.7 mmol/L -2.5-2.5 Arterial blood oxygen saturation measurement 96 % 94-100 * Inhaled oxygen flow rate 40% NRG Arterial blood pH measurement with patient temperature correction 7.48 7.37-7.43 Arterial blood carbon dioxide, total measurement (moles/volume) 20.1 mmol/L 21.0-31.0 Body site RT RAD NRG Assessment of wrist artery patency prior to arterial puncture YES-POS NRG Setting of ventilation mode NO NRG [...] Automated erythrocyte mean corpuscular hemoglobin concentration measurement (mass/volume) 33 g/dL 32-36 Automated erythrocyte distribution width ratio 12.1 % 10.0- 14.5 Automated blood platelet count (count/volume) 173 10*3/uL [...] Blood monocytes automated count (number/volume) 0.4 10*3 0.0- 1.0 Automated eosinophil count 0.0 10*3/uL 0.0-0.3 Automated [...] Serum or plasma aspartate aminotransferase measurement (enzymatic activity/volume) 14 U/L 5-34 Serum or plasma alanine aminotransferase measurement (enzymatic activity/volume) 11 U/L 0-55 Serum or plasma protein [...] Automated erythrocyte mean corpuscular hemoglobin concentration measurement (mass/volume) 32 g/dL 32-36 Automated erythrocyte distribution width ratio 12.6 % 10.0- 14.5 Automated blood platelet count (count/volume) 154 10*3/uL [...] Blood monocytes automated count (number/volume) 0.3 10*3 0.0- 1.0 Automated eosinophil count 0.2 10*3/uL 0.0-0.3 Automated [...] 153 Result Verified by Repeat Analysis mmol/L 134-148 TBil 0.6 mg/dL 0.2-1.2 TP 5.9 g/dL 6.0-8.3 Urine Culture - 05/09/17 19:08 PRELIM CULTURE RESULTS 20,000-50,000 Gram Positive and Gram Negative Mixed Kavita [id number] Skin Contaminant FINAL CULTURE RESULTS 20,000-50,000 Gram Positive and Gram Negative Mixed Kavita [id number] Skin Contaminant [id number] Further Workup done MEDIA PLATED Setup at 19:12 on 05/09/2017 CULTURE SOURCE cath urine Lipid Panel - 05/31/18 13:42 C/HDL 4.6 3.7-6.7 Cholesterol 196 mg/dL 100-240 HDL 43 mg/dL 30-85 LDL-Calculated 136 mg/dL 0-100 Trig 84 mg/dL 35-160 VLDL 17 mg/dL 0-42 Encounters ACCT No. Visit Date/Time Discharge Status Pt. Type Provider Facility Loc./Unit Complaint [id number] 06/23/2018 11:01:00 06/23/2018 11:40:00 DIS Outpatient ANDRES LOGAN MD Via [facility] MALFUNCTIONING PEG TUBE [id number] 06/22/2018 06:09:00 06/22/2018 09:53:00 DIS Outpatient ANDRES LOGAN MD Via [facility] PREOP REPLACE FEEDING TUBE [id number] 11/13/2017 09:24:00 11/13/2017 23:59:59 CLS Outpatient ANDRES LOGAN MD [facility] MALFUNCTIONING TUBE [id number] 11/11/2017 09:28:00 11/11/2017 12:44:00 DIS Outpatient ANDRES LOGAN MD [facility] PREOP REPLACE FEEDING TUBE [id number] 05/06/2017 09:03:00 05/06/2017 23:59:59 CLS Outpatient ANDRES LOGAN MD [facility] MALFUNCTIONING TUBE [id number] 02/03/2017 14:49:00 02/03/2017 23:59:59 CLS Outpatient TODD CHANDLER MD [facility] RAD ASPIRATION,PNEUMONIA FOLLOW UP [id number] 01/21/2017 19:11:00 01/23/2017 11:35:00 DIS Outpatient MAXI VALERO DO [facility] ASPIRATION,CEREBAL PALSY [id number] 04/20/2015 10:43:00 04/20/2015 11:15:00 DIS Outpatient SUKHWINDER IBANEZ MD [facility] NONFUNCTIONING PEG TUBE [id number] 03/08/2014 09:55:00 03/08/2014 23:59:59 CLS Outpatient TODD CHANDLER MD [facility] RAD RCURRENT ASPIRATION,PNA WITH COUGH AFTER TUBE FEED [id number] 08/29/2013 10:11:00 08/29/2013 16:15:00 DIS Outpatient ASHA BOB DDS [facility] ABSCESSES [id number] 08/24/2013 11:52:00 08/24/2013 23:59:59 CLS Outpatient ASHA BOB DDS [facility] PREOP ABSCESSES [id number] 02/06/2014 16:06:00 ACT Inpatient BERNARDO RODRIGES DO [facility] 4TH RESPITORY FAILURE, [id number] 2018 04:18:00 2018 04:42:00 DIS Outpatient David Bansal [id number] 05/31/2018 13:33:00 05/31/2018 23:59:00 DIS Outpatient TODD CHANDLER [id number] 05/09/2017 18:32:00 05/09/2017 22:16:00 DIS Outpatient David Bansal [facility] ER [id number] 11/26/2016 17:16:00 11/28/2016 11:20:00 DIS Outpatient TODD CHANDLER [facility] ICU 1523 11/26/2016 18:52:22 Document Registration [id number] 04/20/2015 10:44:52 ACT Document Registration
== END 2019-04-15 20:07 | disposition home or self-care (01) ==
LOC: EDUNIT# 19:18 → ER 19:19
DX: K94.23 Gastrostomy malfunction (principal); Z80.0 Family history of malignant neoplasm of digestive organs; Z91.041 Radiographic dye allergy status; Z87.19 Personal history of other diseases of the digestive system; Z82.49 Family history of ischemic heart disease and other diseases of the circulatory system
CPT/HCPCS: 49465

== ENCOUNTER 2020-03-03 19:19 | Emergency (ER) | payer OTHER, MEDICAID ==
--- NOTE | 2020-03-03 20:10 | ED GI ---
General Chief Complaint: Catheter/Drain/Tube Problems Stated Complaint: PULLED OUT FEEDING TUBE Source of Information: Patient, Family (sister power of estate planning attorney) Exam Limitations: Other (patient is nonverbal at baseline) History of Present Illness Date Seen by Provider: March 03, 2020 Time Seen by Provider: 19:54 Initial Comments Patient has a Cristian G-tube which is displaced around 4:30 this afternoon. She's had them for almost a year. No fevers chills nausea vomiting diarrhea or cough. She has a stated allergy to iodinated contrast media however she has tolerated Gastrografin for PEG tube checks in the past. Allergies and Home Medications Allergies Coded Allergies: Iodinated Contrast Media - Oral and (Unverified Allergy, Unknown, RASH, 02/09/14) Home Medications Lactulose 10 Gm/15 Ml Solution, 15 ML PEG DAILY, (Reported) Loratadine 5 Mg/5 Ml Solution, 5 ML PEG DAILY, (Reported) Patient Home Medication List Home Medication List Reviewed: Yes Review of Systems Review of Systems Constitutional: No chills, No diaphoresis, No fever EENTM: No Eye Tearing, No Ear Drainage Cardiovascular: Denies Irregular Heart Rate, Denies Syncope Gastrointestinal: Denies Constipated, Denies Diarrhea, Denies Poor Fluid Intake, Denies Vomiting Genitourinary: Denies Discharge, Denies Drainage All Other Systems Reviewed Negative Unless Noted: Yes Past Gtonjnx-Dxhvlg-Ecqqfi Hx Patient Social History Alcohol Use: Denies Use Recreational Drug Use: No Smoking Status: Never a Smoker 2nd Hand Smoke Exposure: No Recent Foreign Travel: No Contact w/Someone Who Travel: No Recent Hopitalizations: No Immunizations Up To Date Tetanus Booster (TDap): Unknown Seasonal Allergies Seasonal Allergies: Yes Past Medical History Surgeries: Yes (PEG TUBE , TUBES IN EARS, DENTAL SX, BILAT ACHILLES TENDON SX, ) Orthopedic Respiratory: No Currently Using CPAP: No Currently Using BIPAP: No Cardiac: No Neurological: Yes (SEVERE CP) Reproductive Disorders: No Genitourinary: No Gastrointestinal: Yes (CONSTIPATION, feeding tube) Chronic Constipation Musculoskeletal: Yes (CP) Endocrine: No HEENT: No Cancer: No Psychosocial: No Integumentary: No Blood Disorders: No Family Medical History Cancer 19 FATHER (SMALL CELL LUNG.) Family history: Cardiovascular disease 19 MOTHER (X2 STENTS) Family history: Diabetes mellitus 19 MOTHER Family history: Hypertension 19 MOTHER History of - disorder 19 FATHER (CEREBRAL PALSY) G8 SISTER (MUSCLE DISEASE) Hypercholesterolemia 19 MOTHER Physical Exam Vital Signs Vital Signs - First Documented 03/03/20 20:00 Temp 36.8 Pulse 113 Resp 20 B/P (MAP) 107/78 (88) Pulse Ox 100 O2 Delivery Room Air Capillary Refill : Height/Weight/BMI Height: 4'11.00" Weight: 80lbs. 0.0oz. 36.436938ri; 16.2 BMI Method:Stated General Appearance: WD/WN, no apparent distress HEENT: PERRL/EOMI, pharynx normal Respiratory: no respiratory distress, no accessory muscle use Cardiovascular: normal peripheral pulses, regular rate, rhythm, no edema Gastrointestinal: normal bowel sounds, non tender, soft, other (patent gastric tube without drainage, erythema or induration) Extremities: normal range of motion, normal capillary refill Neurologic/Psychiatric: alert, normal mood/affect, other (at baseline per her history) Skin: normal color, warm/dry Procedures/Interventions Date of ETT Placement: Jan 21, 2017 Time of ETT Placement: 2324 Progress/Results/Core Measures Results/Orders My Orders Orders - DAVID BETH Peg Tube Check (03/03/20 20:10) Vital Signs/I&O 03/03/20 20:00 Temp 36.8 Pulse 113 Resp 20 B/P (MAP) 107/78 (88) Pulse Ox 100 O2 Delivery Room Air Progress Progress Note #1: Time: 20:14 Progress Note 22 Croatian ALYCE PEG tube was replaced easily using K-Y jelly. We will obtain a PEG tube check x-ray with Gastrografin. Although she has oral iodinated contrast media listed as an allergy she tolerated that last time. We discussed this with her sister and she is okay with this. Progress Note #2: Time: 20:45 Progress Note Bolster was advance from 10 cm to 5 cm. Patient tolerated this well. cardiology tech did note that she had a small single hives or rash with demonstration of Gastrografin on previous imaging but diluted 50% with saline and gave it anyways. I have discussed with the sister and she agrees to this plan and were going to go ahead and prematurely treat her with 25 mg Benadryl per PEG tube. We discussed return precautions. Patient is already on Claritin. Plan to observe her for a short time. Diagnostic Imaging Diagonstic Imaging: Xray Plain Films/CT/US/NM/MRI: abdomen Comments NAME: DANITZA GUERRA [facility] REC#: [id number] PT STATUS: REG ER : 1975 PHYSICIAN: DAVID BETH MD ADMIT DATE: 03/03/20/ER Draft Date of Exam:03/03/20 PEG TUBE CHECK INDICATION: PEG tube placement. EXAMINATION: Contrast was injected through the PEG tube. FINDINGS: Contrast appears to be flowing in the small bowel. IMPRESSION: PEG tube tip appears to be in the proximal small bowel. Dictated on workstation # [id number] Dict: 03/03/202036 Trans: 03/03/202040 [id number] Interpreted by: ANGI CELIS MD Electronically signed by: Reviewed: Reviewed by Me Departure Impression Primary Impression: Complaint associated with gastric tube Disposition: HOME, SELF-CARE Condition: Improved Departure-Patient Inst. Decision time for Depature: 21:00 Referrals: TODD CHANDLER MD (PCP/Family) Primary Care Physician Patient Instructions: How to Care for Your PEG Tube Add. Discharge Instructions: Please return to the ER if you have any further difficulties with the PEG tube. If she develops significant rash, difficulty breathing or swallowing her secretions or other worrisome symptoms please immediately return to the ER and/or call 911. All discharge instructions reviewed with patient and/or family. Voiced understanding. DAVID BETH March 03, 2020 20:10
--- NOTE | 2020-03-03 20:41 | Diagnostic Imaging Report ---
INDICATION: PEG tube placement. EXAMINATION: Contrast was injected through the PEG tube. FINDINGS: Contrast appears to be flowing in the small bowel. IMPRESSION: PEG tube tip appears to be in the proximal small bowel. Dictated by: Dictated on workstation # [id number]
[2020-03-03] MEDS ORDERED: diphenhydrAMINE 12.5 MG/5 ML UDC (BENADRYL) PO ONE (20:45)
[2020-03-03 20:58] VITALS: BP 110/68
== END 2020-03-03 20:56 | disposition home or self-care (01) ==
LOC: EDUNIT# 19:19 → ER 19:21
DX: Z43.1 Encounter for attention to gastrostomy (principal); Z91.041 Radiographic dye allergy status; Z82.49 Family history of ischemic heart disease and other diseases of the circulatory system
CPT/HCPCS: 49465

== ENCOUNTER 2020-12-04 16:46 | Emergency (ER) | payer OTHER, MEDICAID ==
[~2020-12-04] VITALS: Ht 149.8 cm; Wt 39.0 kg
[~2020-12-04 16:46] MED LIST changes: -LACT10SO PEG; +LACT10SO3 PEG
--- NOTE | 2020-12-04 17:49 | ED GI ---
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 Sister states she pulled her PEG tube out somewhere between 2-4 AM this morning. States she has pulled out her PEG tube multiple times and required reinsertion either in Dr. Leroy's office or in the emergency department. She is unsure of the size of the PEG tube, however the last documented PEG tube placed in the ED was a 22 Gambian. Reports no complication, no fevers, chills, diarrhea, vomiting, abdominal pain. Allergies and Home Medications Allergies Coded Allergies: Iodinated Contrast Media (Unverified Allergy, Unknown, RASH, 02/09/14) Home Medications Lactulose 10 Gm/15 Ml Solution, 15 ML PEG DAILY, (Reported) Loratadine 5 Mg/5 Ml Solution, 5 ML PEG DAILY, (Reported) Patient Home Medication List Home Medication List Reviewed: Yes Review of Systems Review of Systems Constitutional: no symptoms reported EENTM: No Symptoms Reported Respiratory: No Symptoms Reported Cardiovascular: No Symptoms Reported Gastrointestinal: See HPI Genitourinary: Incontinence (chronic ) Musculoskeletal: muscle stiffness (chronic ) Skin: no symptoms reported Psychiatric/Neurological: See HPI Endocrine: No Symptoms Reported Hematologic/Lymphatic: No Symptoms Reported Past Zevfcvs-Pqecrh-Zzidfm Hx Patient Social History Alcohol Use: Denies Use Smoking Status: Never a Smoker 2nd Hand Smoke Exposure: No Recent Infectious Disease Expo: No Recent Hopitalizations: No Immunizations Up To Date Tetanus Booster (TDap): Unknown Seasonal Allergies Seasonal Allergies: Yes Past Medical History Surgeries: Yes (PEG TUBE , TUBES IN EARS, DENTAL SX, BILAT ACHILLES TENDON SX, ) Orthopedic Respiratory: No Currently Using CPAP: No Currently Using BIPAP: No Cardiac: No Neurological: Yes (SEVERE CP) Reproductive Disorders: No Genitourinary: No Gastrointestinal: Yes (CONSTIPATION, feeding tube) Chronic Constipation Musculoskeletal: Yes (CP) Endocrine: No HEENT: No Cancer: No Psychosocial: No Integumentary: No Blood Disorders: No Family Medical History Cancer 19 FATHER (SMALL CELL LUNG.) Family history: Cardiovascular disease 19 MOTHER (X2 STENTS) Family history: Diabetes mellitus 19 MOTHER Family history: Hypertension 19 MOTHER History of - disorder 19 FATHER (CEREBRAL PALSY) G8 SISTER (MUSCLE DISEASE) Hypercholesterolemia 19 MOTHER Physical Exam Vital Signs Vital Signs - First Documented 12/04/20 17:24 Temp 36.6 Pulse 119 Resp 18 B/P (MAP) 121/94 (103) Pulse Ox 92 O2 Delivery Room Air Capillary Refill : Less Than 3 Seconds Height/Weight/BMI Height: 4'11.00" Weight: 80lbs. 0.0oz. 36.412226wc; 17.00 BMI Method:Stated General Appearance: WD/WN, no apparent distress HEENT: PERRL/EOMI, other (unable to assess, would not open mouth ) Neck: normal inspection, limited range of motion Respiratory: lungs clear, normal breath sounds, no respiratory distress Cardiovascular: normal peripheral pulses, regular rate, rhythm, no edema Gastrointestinal: normal bowel sounds, soft, other (PEG tube opening intact, no discharge, erythema, or breakdown) Extremities: no pedal edema, other (limited ROM) Neurologic/Psychiatric: alert; No normal mood/affect; oriented x 3 (non verbal ), motor weakness (BLE ), depressed affect Skin: normal color, warm/dry Procedures/Interventions Date of ETT Placement: Jan 21, 2017 Time of ETT Placement: 2324 Progress/Results/Core Measures Results/Orders My Orders Orders - MAVIS PLUMMER APRN Peg Tube Check (12/04/20 18:07) Diphenhydramine Injection (Benadryl Inje (12/04/20 19:00) Consult General Surgery (12/04/20 19:59) Diatrizoate Meglum/Sodium 37% (Gastrogra (12/04/20 20:15) Medications Given in ED Vital Signs/I&O 12/04/20 12/04/20 17:24 20:01 Temp 36.6 36.6 Pulse 119 119 Resp 18 18 B/P (MAP) 121/94 (103) 121/94 (103) Pulse Ox 92 92 O2 Delivery Room Air Blood Pressure Mean: 103 Progress Progress Note : Progress Note This is a nonverbal intellectually disabled adult. She is examined and in no acute distress. Sister states that she initially made appointment at Dr. Leroy's office to have PEG tube placed however they were not able to get her in and recommended she go to ER to have PEG tube reinserted. Consulted Dr. Ro with surgery who presented to the emergency department and was able to place 18 Frenc h PEG tube, after attempting a 22 Gambian and a 20 Gambian. Was unable to place a larger size likely due to patient extended length of displacement. Was noted she has a contrast sensitivity but has tolerated in the past. Treated prophylactically with Benadryl 25 mg IM prior to obtaining images of tube placement. Images show correct tube placement in the stomach, no adverse reactions post procedure. Reviewed discharge plan with sister and she is agreeable with plan, no questions at time of discharge. Diagnostic Imaging Diagonstic Imaging: Xray Plain Films/CT/US/NM/MRI: other Comments NAME: DANITZA GUERRA [facility] REC#: [id number] PT STATUS: REG ER : 1975 PHYSICIAN: MAVIS PLUMMER VERIFY REP ADMIT DATE: 12/04/20/ER Signed Date of Exam:12/04/20 PEG TUBE CHECK HISTORY: Evaluate PEG tube, replaced. COMPARISON: 03/03/2020 TECHNIQUE: Frontal and lateral views of the abdomen were obtained before and after Gastrografin administration through the PEG tube. FINDINGS: Contrast is seen in the stomach and in the proximal small bowel. No distended loops of bowel are seen. No extravasation of contrast is seen. There is moderate stool in the colon. No large collection of free air is seen. IMPRESSION: 1. The PEG tube is located in the stomach. Dictated by: Dictated on workstation # [id number] Dict: 12/04/201948 Trans: 12/04/201957 [facility] [id number] Interpreted by: JOSE J KAMARA MD Electronically signed by: JOSE J KAMARA MD 12/04/201957 Reviewed: Reviewed by Me Departure Impression Primary Impression: PEG (percutaneous endoscopic gastrostomy) adjustment/replacement/removal Disposition: 01 HOME, SELF-CARE Condition: Improved Departure-Patient Inst. Decision time for Depature: 19:57 Referrals: TODD CHANDLER MD (PCP/Family) Primary Care Physician Patient Instructions: How to Care for Your PEG Tube Add. Discharge Instructions: Follow-up with Dr. Leroy for progressing tube size as we had to utilize a smaller size to replace PEG tube today. Current tube size is 18f PEG tube. Return to ER for any new or worsening symptoms. All discharge instructions reviewed with patient and/or family. Voiced understanding. Copy Copies To 1: ANDRES LEROY MD Copies To 2: MARIA DOLORES RO STORMY D VERIFY REP Dec 04, 2020 17:49
[2020-12-04] MEDS ORDERED: diphenhydrAMINE 50 MG/ML INJ (BENADRYL) IM ONE (19:00)
--- NOTE | 2020-12-04 19:53 | Diagnostic Imaging Report ---
HISTORY: Evaluate PEG tube, replaced. COMPARISON: 03/03/2020 TECHNIQUE: Frontal and lateral views of the abdomen were obtained before and after Gastrografin administration through the PEG tube. FINDINGS: Contrast is seen in the stomach and in the proximal small bowel. No distended loops of bowel are seen. No extravasation of contrast is seen. There is moderate stool in the colon. No large collection of free air is seen. IMPRESSION: 1. The PEG tube is located in the stomach. Dictated by: Dictated on workstation # [id number]
[2020-12-04 20:01] VITALS: BP 121/94
[2020-12-04] MEDS ORDERED: DIATRIZOATE MEGLUM/SODIUM 37% 120 ML (GASTROGRAFIN) NG ONE (20:15)
--- NOTE | 2020-12-05 21:18 | Consultation - Surgery ---
History of Present Illness History of Present Illness Patient Consulted On(marilu/time) 12/04/20 18:11 Date Seen by Provider: Dec 04, 2020 Time Seen by Provider: 18:11 History of Present Illness Chief complaint pulled gastrostomy tube Patient seen and evaluated in the emergency department Consult requested by Pascale Lockett. Patient is a 45-year-old female that requires tube feeds through gastrostomy tube. Patient this morning between 2 and 5 AM pulled out the gastrostomy tube. Patient is nonverbal. Patient requires tube feeds. Patient has pulled tubes previously and they are able to be replaced without difficulty caregiver states. Patient went to physicians office however was unable to get in so was told to go to the emergency department. No other complaints at this time. Caregiver states that she is not having any new issues. Denies any nausea vomiting fever sweats chills shortness of breath or chest pain. Allergies and Home Medications Allergies Coded Allergies: Iodinated Contrast Media (Unverified Allergy, Unknown, RASH, 02/09/14) Home Medications Lactulose 10 Gm/15 Ml Solution, 15 ML PEG DAILY, (Reported) Loratadine 5 Mg/5 Ml Solution, 5 ML PEG DAILY, (Reported) Patient Home Medication List Home Medication List Reviewed: Yes Past Ezbxsjc-Igeguf-Whwwbt Hx Patient Social History Smoking Status: Never a Smoker 2nd Hand Smoke Exposure: No Recent Hopitalizations: No Immunizations Up To Date Tetanus Booster (TDap): Unknown Seasonal Allergies Seasonal Allergies: Yes Surgeries History of Surgeries: Yes (PEG TUBE , TUBES IN EARS, DENTAL SX, BILAT ACHILLES TENDON SX, ) Surgeries: Orthopedic Respiratory History of Respiratory Disorde: No Cardiovascular History of Cardiac Disorders: No Neurological History of Neurological Disord: Yes (SEVERE CP) Reproductive System Hx Reproductive Disorders: No Genitourinary History of Genitourinary Disor: No Gastrointestinal History of Gastrointestinal Di: Yes (CONSTIPATION, feeding tube) Gastrointestinal Disorders: Chronic Constipation Musculoskeletal History of Musculoskeletal Dis: Yes (CP) Endocrine History of Endocrine Disorders: No HEENT History of HEENT Disorders: No Cancer History of Cancer: No Psychosocial History of Psychiatric Problem: No Integumentary History of Skin or Integumenta: No Blood Transfusions History of Blood Disorders: No Reviewed Nursing Assessment Reviewed/Agree w Nursing PMH: Yes Family Medical History Significant Family History: No Pertinent Family Hx Family Medial History: Cancer 19 FATHER (SMALL CELL LUNG.) Family history: Cardiovascular disease 19 MOTHER (X2 STENTS) Family history: Diabetes mellitus 19 MOTHER Family history: Hypertension 19 MOTHER History of - disorder 19 FATHER (CEREBRAL PALSY) G8 SISTER (MUSCLE DISEASE) Hypercholesterolemia 19 MOTHER Review of Systems-General ROS-Unable to Obtain: Patient nonverbal and unable to provide Physical Exam-General Problems Physical Exam Vital Signs Vital Signs - First Documented 12/04/20 17:24 Temp 36.6 Pulse 119 Resp 18 B/P (MAP) 121/94 (103) Pulse Ox 92 O2 Delivery Room Air Capillary Refill : Less Than 3 Seconds General Appearance: no apparent distress, thin HEENT: PERRL/EOMI, normal ENT inspection Neck: non-tender, supple, normal inspection Respiratory: chest non-tender, no respiratory distress, no accessory muscle use Cardiovascular: regular rate, rhythm, no JVD Gastrointestinal: non tender, soft, other (Fistula in the left upper quadrant for gastrostomy tube) Rectal: deferred Back: no CVA tenderness, no vertebral tenderness Extremities: non-tender, no pedal edema Neurologic/Psychiatric: alert, normal mood/affect, other (Nonverbal) Skin: normal color, warm/dry Lymphatic: no adenopathy Assessment/Plan Assessment/Plan Assessment/Plan Pulled gastrostomy tube Patient pulled gastrostomy tube approximately 4:58 AM this morning. Patient unable to care tube feeds as she normally does. Patient is not having any pain or any physical exam consistent with any acute need. Patient caregiver was discussed replacing gastrostomy tube as they have before. Patient caregiver understands a 22 Lithuanian which was in the previously was attempted to be placed however this was unsuccessful. A 20 Lithuanian gastrostomy tube was attempted to be inserted and unsuccessful as well. At this time Orange sounds were used to dilate serially and an 18 Lithuanian gastrostomy tube was able to be inserted. Patient tolerated without any difficulties. Gastrostomy tube check performed demonstrating the gastrostomy tube by x-ray was in the stomach. Patient can resume normal tube feeds. MARIA DOLORES RO DO Dec 05, 2020 21:18
== END 2020-12-04 20:01 | disposition home or self-care (01) ==
LOC: EDUNIT# 16:46 → ER 16:48
DX: K94.23 Gastrostomy malfunction (principal); F32.9 Major depressive disorder, single episode, unspecified; Z91.041 Radiographic dye allergy status
CPT/HCPCS: 49465; 96372

== ENCOUNTER 2021-05-02 15:38 | Emergency (ER) | payer MEDICARE, MEDICAID ==
[~2021-05-02] VITALS: Ht 165 cm; Wt 39.0 kg
--- NOTE | 2021-05-02 16:24 | ED General ---
General Stated Complaint: FEEDING TUBE PROBLEM Source of Information: Patient, Caregiver Exam Limitations: No Limitations (SHWETA SLAUGHTER APRN) History of Present Illness Date Seen by Provider: May 02, 2021 Time Seen by Provider: 16:23 Initial Comments PEG tube is torn Timing/Duration: 1-3 Hours Severity: Mild Associated Systoms: Denies Symptoms (SHWETA SLAUGHTER APRN) Allergies and Home Medications Allergies Coded Allergies: Iodinated Contrast Media (Unverified Allergy, Unknown, RASH, 02/09/14) Home Medications Lactulose 10 Gm/15 Ml Solution, 15 ML PEG DAILY, (Reported) Loratadine 5 Mg/5 Ml Solution, 5 ML PEG DAILY, (Reported) Patient Home Medication List Home Medication List Reviewed: Yes (SHWETA SLAUGHTER APRN) Review of Systems Review of Systems Constitutional: see HPI EENTM: see HPI Respiratory: no symptoms reported Cardiovascular: no symptoms reported Genitourinary: no symptoms reported Musculoskeletal: no symptoms reported Skin: no symptoms reported Psychiatric/Neurological: No Symptoms Reported Hematologic/Lymphatic: No Symptoms Reported Immunological/Allergic: no symptoms reported (SHWETA SLAUGHTER APRN) Past Drmnnfn-Disaxk-Twnlbk Hx Immunizations Up To Date Tetanus Booster (TDap): Unknown (SHWETA SLAUGHTER APRN) Seasonal Allergies Seasonal Allergies: Yes (SHWETA SLAUGHTER APRN) Past Medical History Surgeries: Yes (PEG TUBE , TUBES IN EARS, DENTAL SX, BILAT ACHILLES TENDON SX, ) Orthopedic Respiratory: No Currently Using CPAP: No Currently Using BIPAP: No Cardiac: No Neurological: Yes (SEVERE CP) Reproductive Disorders: No Genitourinary: No Gastrointestinal: Yes (CONSTIPATION, feeding tube) Chronic Constipation Musculoskeletal: Yes (CP) Endocrine: No HEENT: No Cancer: No Psychosocial: No Integumentary: No Blood Disorders: No (SHWETA SLAUGHTER APRN) Family Medical History Cancer 19 FATHER (SMALL CELL LUNG.) Family history: Cardiovascular disease 19 MOTHER (X2 STENTS) Family history: Diabetes mellitus 19 MOTHER Family history: Hypertension 19 MOTHER History of - disorder 19 FATHER (CEREBRAL PALSY) G8 SISTER (MUSCLE DISEASE) Hypercholesterolemia 19 MOTHER No Pertinent Family Hx (SHWETA SLAUGHTER APRN) Physical Exam Vital Signs Vital Signs - First Documented 05/02/21 16:21 Temp 36.4 Pulse 82 Resp 18 B/P (MAP) 126/83 (97) Pulse Ox 99 O2 Delivery Room Air (NAM HINTON MD) Vital Signs Capillary Refill : (SHWETA SLAUGHTER APRN) Height, Weight, BMI Height: 4'11.00" Weight: 80lbs. 0.0oz. 36.041563fc; 17.00 BMI Method:Stated General Appearance: No Apparent Distress, Thin, Other (Intellectually delayed nonverbal) Eyes: Bilateral Eye Normal Inspection, Bilateral Eye PERRL, Bilateral Eye EOMI Respiratory: No Accessory Muscle Use, No Respiratory Distress Gastrointestinal: Normal Bowel Sounds, Non Tender, Soft, Other (PEG tube is torn. Old wound was removed, new 18 Pashto PEG tube inserted very easily) Extremity: Normal Capillary Refill, Normal Inspection Neurologic/Psychiatric: Alert, Oriented x3 Skin: Normal Color, Warm/Dry (SHWETA SLAUGHTER APRN) Procedures/Interventions Date of ETT Placement: Jan 21, 2017 Time of ETT Placement: 2324 (SHWETA SLAUGHTER APRN) Progress/Results/Core Measures Suspected Sepsis SIRS Temperature: Pulse: Respiratory Rate: Blood Pressure / Mean: (SHWETA SLAUGHTER APRN) Results/Orders Vital Signs/I&O 05/02/21 05/02/21 16:21 16:29 Temp 36.4 36.4 Pulse 82 82 Resp 18 18 B/P (MAP) 126/83 (97) 126/83 (97) Pulse Ox 99 99 O2 Delivery Room Air (NAM HINTON MD) Vital Signs/I&O Capillary Refill : (SHWETA SLAUGHTER APRN) Departure Impression Primary Impression: PEG (percutaneous endoscopic gastrostomy) adjustment/replacement/removal Disposition: 01 HOME, SELF-CARE Condition: Stable Departure-Patient Inst. Decision time for Depature: 16:24 (SHWETA SLAUGHTER APRN) Referrals: TODD CHANDLER MD (PCP/Family) Primary Care Physician Patient Instructions: How to Care for Your PEG Tube ATTENDING PHYSICIAN NOTE: I was physically present as attending physician in the emergency department during the care of this patient, but I was not directly involved in the decision making or delivery of care for this patient. (NAM HINTON MD) SHWETA SLAUGHTER APRN May 02, 2021 16:24 NAM HINTON MD May 02, 2021 19:46
[2021-05-02 16:29] VITALS: BP 126/83
== END 2021-05-02 16:29 | disposition home or self-care (01) ==
LOC: EDUNIT# 15:38 → ER 15:41
DX: K94.23 Gastrostomy malfunction (principal)
CPT/HCPCS: 43762

== ENCOUNTER 2021-06-01 16:54 | Inpatient (IN) | payer MEDICARE, MEDICAID ==
[~2021-06-01] VITALS: Ht 121.9 cm; Wt 45.0 kg
[2021-06-01 17:22] LABS: EOSINOPHILS % (AUTO) 0 % (0-10); HEMOGLOBIN 11.5 g/dL (11.5-16.0)
[2021-06-01 17:23] LABS: ABG OXYGEN SATURATION 94 % (94-100); ABG PCO2 70 MMHG (35-45); ABG PO2 115 MMHG (79-93)
[2021-06-01 17:24] LABS: BASOPHILS # (AUTO) 0.1 10^3/uL (0.0-0.1); BASOPHILS % (AUTO) 1 % (0-10); HEMATOCRIT 43 % (35-52); LYMPHOCYTES # (AUTO) 4.5 10^3/uL (1.0-4.0); LYMPHOCYTES % (AUTO) 48 % (12-44); MEAN CORPUSCULAR HEMOGLOBIN 32 pg (25-34); MEAN CORPUSCULAR HGB CONC 27 g/dL (32-36); MEAN CORPUSCULAR VOLUME 121 fL (80-99); MONOCYTES # (AUTO) 0.5 10^3/uL (0.0-1.0); MONOCYTES % (AUTO) 5 % (0-12); NEUTROPHILS # (AUTO) 4.2 10^3/uL (1.8-7.8); NEUTROPHILS % (AUTO) 45 % (42-75); PLATELET COUNT 343 10^3/uL (130-400); WHITE BLOOD COUNT 9.3 10^3/uL (4.3-11.0)
[2021-06-01 17:25] LABS: ABG PH 6.98 (7.37-7.43)
[2021-06-01 17:26] LABS: INSPIRED O2 100%; PATIENT TEMP RT BRACHIAL; VENTILATOR NO
--- NOTE | 2021-06-01 17:26 | ED CPR ---
HPI-CPR General Chief Complaint: Code Blue Stated Complaint: CODE BLUE Source of Information: Caregiver, Family (sister) Exam Limitations: Physical Impairments History of Present Illness Date Seen by Provider: Jun 01, 2021 Time Seen by Provider: 17:00 Initial Comments Patient is a 45-year-old female who presents to the emergency department today with her sister, blue and unresponsive. Sister reports that she has been sick for 3 or 4 days with cough and congestion. Sister has been doing breathing treatments and giving her children's cough medication and alternating Tylenol and ibuprofen. States this morning that she noticed around 5:00 this morning she was having some difficulty breathing which progressed throughout the day. At 3 or 4 this afternoon her breathing was so bad that sister put her in the car and brought her here. On the way to the hospital the patient became blue and quit breathing. She is not Covid vaccinated. Sister reports that she is nonverbal and nonambulatory. On my entrance into the room CPR is in progress patient is purple, mottled. No pulse no spontaneous respirations. IV access was quickly established via an IO in the right tib-fib, 2small peripheral IV's established, epinephrine, multiple rounds was given with a fluid bolus. 1 amp of D50. 1 amp of bicarb. After about 30 minutes of resuscitative efforts tachycardic pulse was regained with a hypertensive blood pressure. During CPR patient was intubated with a 6-0 ET t ube with positive visualization of the cords, positive color change on CO2 detector and equal bilateral breath sounds. Later confirmed placement on CXR Patient currently maintained on IV fluids. Initial Complaints: Found Unresponsive Witnessed Arrest: Yes Bystander CPR: No Allergies and Home Medications Allergies Coded Allergies: Iodinated Contrast Media (Unverified Allergy, Unknown, RASH, 02/09/14) Home Medications Lactulose 10 Gm/15 Ml Solution, 15 ML PEG DAILY, (Reported) Loratadine 5 Mg/5 Ml Solution, 5 ML PEG DAILY, (Reported) Patient Home Medication List Home Medication List Reviewed: Yes Review of Systems Review of Systems Constitutional: see HPI EENTM: Nose Congestion Respiratory: Cough Past Zpzkbnz-Esfrsx-Ynoiet Hx Immunizations Up To Date Tetanus Booster (TDap): Unknown Seasonal Allergies Seasonal Allergies: Yes Past Medical History Surgery/Hospitalization HX: 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 Surgeries: Yes (PEG TUBE , TUBES IN EARS, DENTAL SX, BILAT ACHILLES TENDON SX, ) Orthopedic Respiratory: No Currently Using CPAP: No Currently Using BIPAP: No Cardiac: No Neurological: Yes (SEVERE CP) Reproductive Disorders: No Genitourinary: No Gastrointestinal: Yes (CONSTIPATION, feeding tube) Chronic Constipation Musculoskeletal: Yes (CP) Endocrine: No HEENT: No Cancer: No Psychosocial: No Integumentary: No Blood Disorders: No Family Medical History Cancer 19 FATHER (SMALL CELL LUNG.) Family history: Cardiovascular disease 19 MOTHER (X2 STENTS) Family history: Diabetes mellitus 19 MOTHER Family history: Hypertension 19 MOTHER History of - disorder 19 FATHER (CEREBRAL PALSY) G8 SISTER (MUSCLE DISEASE) Hypercholesterolemia 19 MOTHER No Pertinent Family Hx Physical Exam Vital Signs Vital Signs - First Documented 06/01/21 17:40 Temp 35.1 Pulse 0 Resp 0 B/P (MAP) 0/0 (0) O2 Delivery Room Air Capillary Refill : Height, Weight, BMI Height: 4'11.00" Weight: 80lbs. 0.0oz. 36.381485cn; 14.00 BMI Method:Stated General Appearance: Cachetic HEENT: Other (pupils unresponsive; dry oral mucosa; vomitus left side of mouth) Respiratory: Other (equal BS after intubation) Cardiovascular: Other (after 30min of CPR tachy) Gastrointestinal: Distended Extremity: No Pedal Edema Neurologic/Psychiatric: Other (unresponsive) Skin: Other (initially purple and mottled; after intubation color improved) Focused Exam Lactate Level Lactic Acid Level Laboratory Tests Test 06/01/21 18:34 Lactic Acid Level 13.97 MMOL/L (0.50-2.00) *H Procedures/Interventions Lumen: triple Central Line Procedure: betadine prep, sterile drapes applied Position: internal jugular (R) Two attempts at right IJ central line placement with ultrasound at the bedside, both were unsuccessful. I did get good blood return but could not feed the wire Reason for Intubation: Cardiac arrest Date of ETT Placement: Jan 21, 2017 Time of ETT Placement: 2324 Intubation Method: orotracheal Tube Size: 6.0 Positive End Tide CO2: Yes Breath Sounds after Intubation: bilateral-equal Intubation Complications: no complications Post Intubation Xray: Yes Chest x-ray shows right mainstem intubation, will withdraw the tube 1 to 2 Progress/Results/Core Measures Results/Orders Lab Results Laboratory Tests Test 06/01/21 16:58 06/01/21 17:07 06/01/21 17:14 06/01/21 18:25 Range/Units Influenza Type A (RT-PCR) Not Detected Not Detecte Influenza Type B (RT-PCR) Not Detected Not Detecte SARS-CoV-2 RNA (RT-PCR) Detected H Not Detecte White Blood Count 9.3 4.3-11.0 10^3/uL Red Blood Count 3.57 L 3.80-5.11 10^6/uL Hemoglobin 11.5 11.5-16.0 g/dL Hematocrit 43 35-52 % Mean Corpuscular Volume 121 H 80-99 fL Mean Corpuscular Hemoglobin 32 25-34 pg Mean Corpuscular Hemoglobin Concent 27 L 32-36 g/dL Red Cell Distribution Width 13.3 10.0-14.5 % Platelet Count 343 130-400 10^3/uL Mean Platelet Volume 14.0 H 9.0-12.2 fL Immature Granulocyte % (Auto) 1 % Neutrophils (%) (Auto) 45 42-75 % Lymphocytes (%) (Auto) 48 H 12-44 % Monocytes (%) (Auto) 5 0-12 % Eosinophils (%) (Auto) 0 0-10 % Basophils (%) (Auto) 1 0-10 % Neutrophils # (Auto) 4.2 1.8-7.8 10^3/uL Lymphocytes # (Auto) 4.5 H 1.0-4.0 10^3/uL Monocytes # (Auto) 0.5 0.0-1.0 10^3/uL Eosinophils # (Auto) 0.0 0.0-0.3 10^3/uL Basophils # (Auto) 0.1 0.0-0.1 10^3/uL Immature Granulocyte # (Auto) 0.1 0.0-0.1 10^3/uL Neutrophils % (Manual) 42 % Lymphocytes % (Manual) 45 % Monocytes % (Manual) 5 % Band Neutrophils 8 % Nucleated Red Blood Cells 18 Percent Immature Platelet Fraction 7.9 H 0.0-7.6 % Polychromasia MARKED Prothrombin Time 19.2 H 12.2-14.7 SEC INR Comment 1.6 H 0.8-1.4 Activated Partial Thromboplast Time 36 H 24-35 SEC Blood Gas Puncture Site RT BRACHIAL Blood Gas Patient Temperature RT BRACHIAL Arterial Blood pH 6.98 *L 7.37-7.43 Arterial Blood Partial Pressure CO2 70 H 35-45 MMHG Arterial Blood Partial Pressure O2 115 H 79-93 MMHG Arterial Blood HCO3 16 *L 23-27 MMOL/L Arterial Blood Total CO2 18.0 L 21.0-31.0 MMOL/L Arterial Blood Oxygen Saturation 94 94-100 % Arterial Blood Base Excess -14.0 L -2.5-2.5 MMOL/L Messi Test NA Blood Gas Ventilator Setting NO Blood Gas Inspired Oxygen 100% Urine Color YELLOW Urine Clarity CLOUDY Urine pH 5.0 5-9 Urine Specific [place] 1.025 H 1.016-1.022 Urine Protein 2+ H NEGATIVE Urine Glucose (UA) TRACE H NEGATIVE Urine Ketones TRACE H NEGATIVE Urine Nitrite NEGATIVE NEGATIVE Urine Bilirubin NEGATIVE NEGATIVE Urine Urobilinogen 1.0 < = 1.0 MG/DL Urine Leukocyte Esterase NEGATIVE NEGATIVE Urine RBC (Auto) 1+ H NEGATIVE Urine RBC NONE /HPF Urine WBC 5-10 H /HPF Urine Squamous Epithelial Cells NONE /HPF Urine Renal Epithelial Cells 0-2 /HPF Urine Crystals NONE /LPF Urine Bacteria LARGE H /HPF Urine Casts PRESENT /LPF Urine Granular Casts 10-25 H /LPF Urine Mucus NEGATIVE /LPF Urine Culture Indicated CULTURE PENDING Test 06/01/21 18:34 Range/Units Sodium Level 175 *H 135-145 MMOL/L Potassium Level 4.7 3.6-5.0 MMOL/L Chloride Level 133 H 98-107 MMOL/L Carbon Dioxide Level 15 L 21-32 MMOL/L Anion Gap 27 H 5-14 MMOL/L Blood Urea Nitrogen 65 H 7-18 MG/DL Creatinine 2.00 H 0.60-1.30 MG/DL Estimat Glomerular Filtration Rate 27 BUN/Creatinine Ratio 33 Glucose Level 523 *H 70-105 MG/DL Lactic Acid Level 13.97 *H 0.50-2.00 MMOL/L Calcium Level 8.3 L 8.5-10.1 MG/DL Corrected Calcium 9.5 8.5-10.1 MG/DL Total Bilirubin 0.6 0.1-1.0 MG/DL Aspartate Amino Transf (AST/SGOT) 1445 H 5-34 U/L Alanine Aminotransferase (ALT/SGPT) 877 H 0-55 U/L Alkaline Phosphatase 113 40-136 U/L Troponin I 0.169 H <0.028 NG/ML Total Protein 5.8 L 6.4-8.2 GM/DL Albumin 2.5 L 3.2-4.5 GM/DL Procalcitonin 41.20 H <0.10 NG/ML My Orders Orders - JAIME EPSTEIN MD Cefepime Injection (Maxipime Injection) (06/01/21 17:45) Norepinephrine 8 Mg/250 Ml (Norepinephri (06/01/21 17:45) Ns Iv 1000 Ml (Sodium Chloride 0.9%) (06/01/21 17:39) Comprehensive Metabolic Panel (06/01/21 17:56) Procalcitonin (Pct) (06/01/21 17:56) Troponin I (06/01/21 17:56) Medications Given in ED Vital Signs/I&O 06/01/21 17:40 Temp 35.1 Pulse 0 Resp 0 B/P (MAP) 0/0 (0) O2 Delivery Room Air 06/02/21 00:00 Intake Total 1000 ml Balance 1000 ml Progress Progress Note : Time: 19:00 Progress Note multiple discussions with the sister (patient's DPOA) she requests continued resuscitative efforts. I did explain the gravity of the clinical situation and advised that her outlook was grim at best. [address] Carlos mccormack Initial ECG Impression Date: Jun 01, 2021 Initial ECG Impression Time: 17:25 Initial ECG Rate: 165 Initial ECG Rhythm: S.Tach Initial ECG Intervals ME 86 QRS 64 QTc 499 Initial ECG Impression: Nonspecific Changes Diagnostic Imaging Diagonstic Imaging: Xray Plain Films/CT/US/NM/MRI: chest Comments chest xray: ETT at the ofe, lungs appear mostly clear Critical Care Note Critical Care Start Time: 16:45 Stop Time: 18:15 Total Time (minutes) 40 minutes critical care time in the evaluation and management of this patient who presented in cardiac arrest/respiratory arrest time includes management of blood pressure/sepsis and oxygenation postcode review of the medical records multiple discussion with family members regarding continuing care and resuscitative efforts, discussion with hospitalist, surgeon for line placement and eICU Departure Communication (Admissions) Time/Spoke to Admitting Phy: 18:[address] Tenorio Time/Spoke to Consulting Phy: 18:[address] Queen for central line placement Impression Primary Impression: Cardiac arrest Additional Impression: Pneumonia due to COVID-19 virus Disposition: ADMITTED INPATIENT Condition: Critical Admissions Decision to Admit Reason: Admit from ER (General) Decision to Admit/Date: Jun 01, 2021 Time/Decision to Admit Time: 17:33 Departure-Patient Inst. Referrals: TODD CHANDLER MD (PCP/Family) Primary Care Physician JAIME EPSTEIN MD Jun 01, 2021 17:25
[2021-06-01 17:31] LABS: INR 1.6 (0.8-1.4); PROTHROMBIN TIME PATIENT 19.2 SEC (12.2-14.7)
[2021-06-01] MEDS ORDERED: NOREPINEPHRINE 8 MG/250 ML 250 ML IV ONE (17:38)
[2021-06-01] MEDS ORDERED: NS IV 1000 ML 1,000 ML ONE ×2 (17:39→20:56)
[2021-06-01 17:43] LABS: BAND NEUTROPHILS 8 %; LYMPHOCYTES % (MANUAL) 45 %; MONOCYTES % (MANUAL) 5 %; NEUTROPHILS % (MANUAL) 42 %; NUCLEATED RED BLOOD CELLS 18; POLYCHROMASIA MARKED
[2021-06-01] MEDS ORDERED: NOREPINEPHRINE 8 MG/250 ML 250 ML IV SCH (17:45)
[2021-06-01] MEDS ORDERED: CEFEPIME INJECTION 2,000 MG in WATER (STERILE) FOR INJECTION 20 ML IV ONE (17:45)
--- NOTE | 2021-06-01 18:06 | Diagnostic Imaging Report ---
INDICATION: CODE BLUE, post intubation, sepsis. TECHNIQUE: Single view chest 5:29 PM. CORRELATION STUDY: 02/03/2017. FINDINGS: An endotracheal tube has been placed, tip projects towards the right mainstem bronchus and should be retracted approximately 1 to 2 cm. Heart size and mediastinum are unremarkable. Extensive bilateral pulmonary opacities, adversely changed from prior. Likely what appears to be significant gas distention of the stomach. Additional gas in the right upper quadrant appears to be likely within the gastrointestinal tract. IMPRESSION: 1. Endotracheal tube appears to be positioned in its proximal right mainstem bronchus and should be retracted approximately 1 to 2 cm. 2. Extensive bilateral airspace disease. Could be reflective of multilobe pneumonia, edema, hemorrhage and/or ARDS. Follow-up imaging recommended. 3. Gas-distention of the stomach. Gastric tube is not visualized. Report was faxed to the [facility] at 6:03 p.m., by roni. Dictated by: Dictated on workstation # [id number]
[2021-06-01 18:49] LABS: BILIRUBIN,URINE NEGATIVE (NEGATIVE); CLARITY,URINE CLOUDY; COLOR,URINE YELLOW; GLUCOSE, URINE (UA) TRACE (NEGATIVE); KETONES,URINE TRACE (NEGATIVE); LEUKOCYTE ESTERASE ,URINE NEGATIVE (NEGATIVE); NITRITE,URINE NEGATIVE (NEGATIVE); PROTEIN,URINE 2+ (NEGATIVE)
[2021-06-01 18:56] LABS: ALBUMIN 2.5 GM/DL (3.2-4.5); POTASSIUM 4.7 MMOL/L (3.6-5.0)
[2021-06-01 18:57] LABS: CALCIUM 8.3 MG/DL (8.5-10.1)
[2021-06-01 18:58] LABS: BACTERIA,URINE LARGE /HPF; RENAL EPITHELIAL CELLS,URINE 0-2 /HPF
[2021-06-01 18:59] LABS: TOTAL PROTEIN 5.8 GM/DL (6.4-8.2)
[2021-06-01 19:00] LABS: BILIRUBIN,TOTAL 0.6 MG/DL (0.1-1.0)
[2021-06-01] MEDS ORDERED: LACTATED RINGERS 1,000 ML IV SCH (19:30)
--- NOTE | 2021-06-01 20:17 | Consultation - Surgery ---
History of Present Illness History of Present Illness Patient Consulted On(marilu/time) 06/01/21 20:13 Time Seen by Provider: 19:33 History of Present Illness Surgery asked to consult regarding Venous Insufficiency, Hypotension. HPI per ED: Patient is a 45-year-old female who presents to the emergency department today with her sister, blue and unresponsive. Sister reports that she has been sick for 3 or 4 days with cough and congestion. Sister has been doing breathing treatments and giving her children's cough medication and alternating Tylenol and ibuprofen. States this morning that she noticed around 5:00 this morning she was having some difficulty breathing which progressed throughout the day. At 3 or 4 this afternoon her breathing was so bad that sister put her in the car and brought her here. On the way to the hospital the patient became blue and quit breathing. She is not Covid vaccinated. Sister reports that she is nonverbal and nonambulatory. On my entrance into the room CPR is in progress patient is purple, mottled. No pulse no spontaneous respirations. IV access was quickly established via an IO in the right tib-fib, 2small peripheral IV's established, epinephrine, multiple rounds was given with a fluid bolus. 1 amp of D50. 1 amp of bicarb. After about 30 minutes of resuscitative efforts tachycardic pulse was regained with a hypertensive blood pressure. During CPR patient was intubated with a 6-0 ET tub e with positive visualization of the cords, positive color change on CO2 detector and equal bilateral breath sounds. Later confirmed placement on CXR When I came in sister not at bedside, all info obtained from chart. Allergies and Home Medications Allergies Coded Allergies: Iodinated Contrast Media (Unverified Allergy, Unknown, RASH, 02/09/14) Home Medications Lactulose 10 Gm/15 Ml Solution, 15 ML PEG DAILY, (Reported) Loratadine 5 Mg/5 Ml Solution, 5 ML PEG DAILY, (Reported) Patient Home Medication List Home Medication List Reviewed: Yes Past Uoeupmk-Axcqgf-Owajyg Hx Patient Social History Smoking Status: Never a Smoker 2nd Hand Smoke Exposure: No Recent Hopitalizations: No Alcohol Use?: No Have you traveled recently?: No Immunizations Up To Date Tetanus Booster (TDap): Unknown Seasonal Allergies Seasonal Allergies: Yes Surgeries History of Surgeries: Yes (PEG TUBE , TUBES IN EARS, DENTAL SX, BILAT ACHILLES TENDON SX, ) Surgeries: Orthopedic Respiratory History of Respiratory Disorde: No Cardiovascular History of Cardiac Disorders: No Neurological History of Neurological Disord: Yes (SEVERE CP) Reproductive System Hx Reproductive Disorders: No Genitourinary History of Genitourinary Disor: No Gastrointestinal History of Gastrointestinal Di: Yes (CONSTIPATION, feeding tube) Gastrointestinal Disorders: Chronic Constipation Musculoskeletal History of Musculoskeletal Dis: Yes (CP) Endocrine History of Endocrine Disorders: No HEENT History of HEENT Disorders: No Cancer History of Cancer: No Psychosocial History of Psychiatric Problem: No Integumentary History of Skin or Integumenta: No Blood Transfusions History of Blood Disorders: No Family Medical History Significant Family History: Heart Disease, Diabetes, Hypertension Family Medial History: Cancer 19 FATHER (SMALL CELL LUNG.) Family history: Cardiovascular disease 19 MOTHER (X2 STENTS) Family history: Diabetes mellitus 19 MOTHER Family history: Hypertension 19 MOTHER History of - disorder 19 FATHER (CEREBRAL PALSY) G8 SISTER (MUSCLE DISEASE) Hypercholesterolemia 19 MOTHER Review of Systems-General ROS-Unable to Obtain: unable to obtain, pt intubated Physical Exam-General Problems Physical Exam Vital Signs Vital Signs - First Documented 06/01/21 17:40 Temp 35.1 Pulse 0 Resp 0 B/P (MAP) 0/0 (0) O2 Delivery Room Air Capillary Refill : Greater Than 3 Seconds General Appearance: cachetic (intubated) HEENT: other (ET tube in place) Respiratory: decreased breath sounds, crackles, wheezing Cardiovascular: no murmur, tachycardia Gastrointestinal: soft, no organomegaly Neurologic/Psychiatric: other (intubated, not moving and not sedated) Data Review Labs Laboratory Tests 06/01/21 16:58: Influenza Type A (RT-PCR) Not Detected, Influenza Type B (RT-PCR) Not Detected, SARS-CoV-2 RNA (RT-PCR) DetectedH 06/01/21 17:07: White Blood Count 9.3, Red Blood Count 3.57L, Hemoglobin 11.5, Hematocrit 43, Mean Corpuscular Volume 121H, Mean Corpuscular Hemoglobin 32, Mean Corpuscular Hemoglobin Concent 27L, Red Cell Distribution Width 13.3, Platelet Count 343, Mean Platelet Volume 14.0H, Immature Granulocyte % (Auto) 1, Neutrophils (%) (Auto) 45, Lymphocytes (%) (Auto) 48H, Monocytes (%) (Auto) 5, Eosinophils (%) (Auto) 0, Basophils (%) (Auto) 1, Neutrophils # (Auto) 4.2, Lymphocytes # (Auto) 4.5H, Monocytes # (Auto) 0.5, Eosinophils # (Auto) 0.0, Basophils # (Auto) 0.1, Immature Granulocyte # (Auto) 0.1, Neutrophils % (Manual) 42, Lymphocytes % (Manual) 45, Monocytes % (Manual) 5, Band Neutrophils 8, Nucleated Red Blood Cells 18, Percent Immature Platelet Fraction 7.9H, Polychromasia MARKED, Prothrombin Time 19.2H, INR Comment 1.6H, Activated Partial Thromboplast Time 36H 06/01/21 17:14: Blood Gas Puncture Site RT BRACHIAL, Blood Gas Patient Temperature RT BRACHIAL, Arterial Blood pH 6.98*L, Arterial Blood Partial Pressure CO2 70H, Arterial Blood Partial Pressure O2 115H, Arterial Blood HCO3 16*L, Arterial Blood Total CO2 18.0L, Arterial Blood Oxygen Saturation 94, Arterial Blood Base Excess - 14.0L, Messi Test NA, Blood Gas Ventilator Setting NO, Blood Gas Inspired Oxygen 100% 06/01/21 18:25: Urine Color YELLOW, Urine Clarity CLOUDY, Urine pH 5.0, Urine Specific [place] 1.025H, Urine Protein 2+H, Urine Glucose (UA) TRACEH, Urine Ketones TRACEH, Urine Nitrite NEGATIVE, Urine Bilirubin NEGATIVE, Urine Urobilinogen 1.0, Urine Leukocyte Esterase NEGATIVE, Urine RBC (Auto) 1+H, Urine RBC NONE, Urine WBC 5-10H, Urine Squamous Epithelial Cells NONE, Urine Renal Epithelial Cells 0-2, Urine Crystals NONE, Urine Bacteria LARGEH, Urine Casts PRESENT, Urine Granular Casts 10-25H, Urine Mucus NEGATIVE, Urine Culture Indicated CULTURE PENDING 06/01/21 18:34: Sodium Level 175*H, Potassium Level 4.7, Chloride Level 133H, Carbon Dioxide Level 15L, Anion Gap 27H, Blood Urea Nitrogen 65H, Creatinine 2.00H, Estimat Glomerular Filtration Rate 27, BUN/Creatinine Ratio 33, Glucose Level 523*H, Lactic Acid Level 13.97*H, Calcium Level 8.3L, Corrected Calcium 9.5, Total Bilirubin 0.6, Aspartate Amino Transf (AST/SGOT) 1445H, Alanine Aminotransferase (ALT/SGPT) 877H, Alkaline Phosphatase 113, Troponin I 0.169H, Total Protein 5.8L , Albumin 2.5L, Procalcitonin 41.20H Assessment/Plan Assessment/Plan Assessment/Plan Respiratory Arrest Covid - 19 + Venous Insufficiency Hypotension Pt needs line for Levophed and other pressor support, cannot go through peripheral line. SARA DIXON DO Jun 01, 2021 20:17
--- NOTE | 2021-06-01 20:20 | Progress Note-Post Operative ---
Post-Operative Progess Note Surgeon (s)/Warp Dyeing Vat Tender (s) Surgeon SARA DIXON DO Warp Dyeing Vat Tender: none Pre-Operative Diagnosis Covid - 19 +, Respiratory arrest, Venous Insufficiency, Hypotension Post-Operative Diagnosis same Procedure & Operative Findings Date of Procedure 06/01/21 Procedure Performed/Findings Procedure: Central line placement The patient was in their bed in the ER, was prepped and draped in the sterile fashion. A surgical pause was performed. Ultrasound was used to locate the internal jugular vein. Using an 18 gauge finder needle and watching with the US; the left internal jugular vein was accessed. Dark nonpulsatile blood was withdrawn. The wire was inserted. US assured proper placement. The needle was removed. A [#11] blade scalpel was used to make a stab incision along the guidewire. Dilator sheath was then advanced over the wire using Seldinger technique and the dilator was removed. The [place] catheter was inserted over the guide wire using the Seldinger technique. The [place] wire was removed. The catheter was then accessed in all three ports without difficulty. Good flash of blood was seen and it was then flushed with saline. The catheter was sutured in place with 3-0 silk on a marina needle. The areas were then washed and dried. Sterile dressing was placed over incision. The patient tolerated the procedure well without complication. Anesthesia Type none Estimated Blood Loss Estimated blood loss (mL): less than 5ml Specimens/Packing Specimens Removed SARA Conroy DO Jun 01, 2021 20:20
[2021-06-01] MEDS ORDERED: NS IV 1000 ML 1,000 ML IV SCH (21:15)
[2021-06-01 21:21] VITALS: BP 85/32
[2021-06-01] MEDS ORDERED: ROCURONIUM 50 MG/5 ML (ZEMURON) VIAL IV PRN (21:30)
[2021-06-01] MEDS ORDERED: fentaNYL INJ 1,250 MCG in NS (IVPB) 225 ML IV SCH (21:30)
[2021-06-01] MEDS ORDERED: MAGNESIUM SULFATE DRIP 500 ML IV SCH (21:30)
[2021-06-01] MEDS ORDERED: SODIUM PHOSPHATE INJ 30 MM in NS (IVPB) 250 ML IV PRN (21:30)
[2021-06-01] MEDS ORDERED: PROPOFOL DRIP (ICU) 100 ML IV SCH (21:30)
[2021-06-01] MEDS ORDERED: LORazepam INJECTION FOR DRIP 20 MG in D5W 100 ML IVPB 90 ML IV SCH (21:30)
[2021-06-01] MEDS ORDERED: CALCIUM CHLORIDE 10% INJECTION 1 GM in NS (IVPB) 100 ML IV PRN (21:30)
[2021-06-01] MEDS ORDERED: LACRI-LUBE OPTHALMIC OINT 3.5 GM TUBE OU SCH (21:30)
[2021-06-01] MEDS ORDERED: LACRI-LUBE OPTHALMIC OINT 3.5 GM TUBE OU PRN (21:30)
[2021-06-01] MEDS ORDERED: busPIRone 15 MG (BUSPAR) TABLET GT SCH (22:00)
[2021-06-01 22:17] LABS: ABG BASE EXCESS -8.5 MMOL/L (-2.5-2.5); ABG OXYGEN SATURATION 84 % (94-100); ABG PCO2 41 MMHG (35-45); ABG PO2 56 MMHG (79-93); ABG TCO2 18.5 MMOL/L (21.0-31.0)
[2021-06-01 22:18] LABS: ALLENS TEST YES-POS; PATIENT TEMP 37.9; VENTILATOR YES
[2021-06-01 22:19] LABS: ABG PH 7.25 (7.37-7.43); INSPIRED O2 50%
[2021-06-01 23:22] VITALS: BP 86/52
[2021-06-01] MEDS: 1/2 NS IV SOLUTION 1,000 ML IV SCH (23:34)
[2021-06-01] MEDS: NOREPINEPHRINE 8 MG/250 ML 250 ML IV SCH (23:36)
[2021-06-01] MEDS: MIDAZOLAM DRIP PRE-MIX 100 ML IV SCH (23:36)
[2021-06-01] MEDS ORDERED: RT-ALBUTEROL HFA 8.5 GM INHALER IH PRN (23:45)
[2021-06-02] MEDS ORDERED: ACETAMINOPHEN 325 MG TABLET GT SCH
[2021-06-02] MEDS ORDERED: POTASSIUM CL 10MEQ/50ML IVPB 50 ML IV SCH
[2021-06-02 01:34] VITALS: BP 89/59
[2021-06-02] MEDS: RT-ALBUTEROL HFA 8.5 GM INHALER IH SCH ×6 (01:34→21:56)
[2021-06-02 02:36] LABS: EOSINOPHILS % (AUTO) 0 % (0-10); HEMOGLOBIN 10.6 g/dL (11.5-16.0); MEAN PLATELET VOLUME 13.2 fL (9.0-12.2)
[2021-06-02 02:38] LABS: BASOPHILS # (AUTO) 0.1 10^3/uL (0.0-0.1); BASOPHILS % (AUTO) 1 % (0-10); HEMATOCRIT 37 % (35-52); LYMPHOCYTES # (AUTO) 1.5 10^3/uL (1.0-4.0); LYMPHOCYTES % (AUTO) 19 % (12-44); MEAN CORPUSCULAR HEMOGLOBIN 32 pg (25-34); MEAN CORPUSCULAR HGB CONC 29 g/dL (32-36); MEAN CORPUSCULAR VOLUME 111 fL (80-99); MONOCYTES # (AUTO) 0.1 10^3/uL (0.0-1.0); MONOCYTES % (AUTO) 2 % (0-12); NEUTROPHILS # (AUTO) 5.9 10^3/uL (1.8-7.8); NEUTROPHILS % (AUTO) 78 % (42-75); PLATELET COUNT 307 10^3/uL (130-400); WHITE BLOOD COUNT 7.6 10^3/uL (4.3-11.0)
[2021-06-02 02:39] LABS: ABG BASE EXCESS -7.6 MMOL/L (-2.5-2.5); ABG OXYGEN SATURATION 88 % (94-100); ABG PCO2 34 MMHG (35-45); ABG PO2 58 MMHG (79-93); ABG TCO2 18.4 MMOL/L (21.0-31.0)
[2021-06-02 02:40] LABS: ALLENS TEST YES-POS; INSPIRED O2 50%; VENTILATOR YES
[2021-06-02 02:46] LABS: POTASSIUM 3.3 MMOL/L (3.6-5.0)
[2021-06-02 02:48] LABS: CALCIUM 7.2 MG/DL (8.5-10.1)
[2021-06-02 02:52] LABS: CREATININE SERUM 2.02 MG/DL (0.60-1.30); PHOSPHORUS 1.7 MG/DL (2.3-4.7)
[2021-06-02 02:54] LABS: MAGNESIUM 2.1 MG/DL (1.6-2.4)
[2021-06-02 02:57] LABS: PATIENT TEMP 36.9
[2021-06-02 02:58] LABS: ABG PH 7.32 (7.37-7.43)
[2021-06-02] MEDS: 1/2 NS IV SOLUTION 1,000 ML IV SCH ×4 (04:37→18:12)
[2021-06-02] MEDS: CEFEPIME 1,000 MG/SWFI 10 ML IV PUSH IV SCH ×4 (06:40→18:11)
[2021-06-02] MEDS: POTASSIUM CL 10MEQ/50ML IVPB 50 ML IV SCH (06:40)
[2021-06-02] MEDS: KCL 20 MEQ TAB (K-DUR) PO SCH (06:40)
[2021-06-02] MEDS: MAGNESIUM 1 GM/100 ML IVPB 100 ML IV SCH (06:40)
--- NOTE | 2021-06-02 07:18 | History & Physical-Hospitalist ---
History of Present Illness HPI/Chief Complaint Patient is a 45-year-old female with a past medical history of cerebral palsy who presented to the emergency room as a CODE BLUE. She was resuscitated in the emergency room and is admitted to the ICU. She is intubated and sedated and unable to provide any history. I called and spoke with her sister and all history is obtained from the records and from the sister's account. 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 They noticed that Smitha was coughing and raspy for the past 4 days. She also developed a fever. She had been treating this with xbot-vps-spqaxpw medicines. Her sister went to work yesterday and throughout the day she had worsened and when her sister returned she drove her immediately to the emergency department. Per ER note she was mottled and unresponsive on arrival. In route she quit breathing. CPR was s tarted immediately and after 30 minutes of ACLS protocol ROSC was obtained. She was tested for Covid and was found to be positive. She is unvaccinated. Source: patient Date Seen 06/02/21 Time Seen by a Provider: 07:18 Attending Physician ELDER SANTIAGO Rachel L MD Referring Physician Date of Admission Jun 01, 2021 at 18:34 Home Medications & Allergies Home Medications Reviewed patient Home Medication Reconciliation performed by pharmacy medication reconciliations certified veterinary technician and/or nursing. Patients Allergies have been reviewed. Allergies Allergies Coded Allergies Iodinated Contrast Media (Unverified Allergy, Unknown, RASH, 02/09/14) Past Kmzzbdy-Dxdesp-Hetspr Hx Patient Social History Marrital Status: Employed/Student: unemployed Tobacco Use?: No Smoking Status: Never a Smoker Use of E-Cig and/or Vaping dev: No Substance use?: No Alcohol Use?: No Pt feels they are or have been: Unable to obtain Immunizations Up To Date Tetanus Booster (TDap): Less Than 5 Years Hepatitis A: No Hepatitis B: No Seasonal Allergies Seasonal Allergies: Yes Current Status Advance Directives: Unable to obtain Communicates: Does Not Communicate Primary Language: Samoan Preferred Spoken Language: Samoan Sensory deficits: Speech impairment Implanted or Applied Medical D: None Past Medical History Surgeries: Orthopedic Currently Using CPAP: No Currently Using BIPAP: No Cerebral Palsy Chronic Constipation Blood Disorders: No Family Medical History Reviewed Nursing Family Hx Cancer 19 FATHER (SMALL CELL LUNG.) Family history: Cardiovascular disease 19 MOTHER (X2 STENTS) Family history: Diabetes mellitus 19 MOTHER Family history: Hypertension 19 MOTHER History of - disorder 19 FATHER (CEREBRAL PALSY) G8 SISTER (MUSCLE DISEASE) Hypercholesterolemia 19 MOTHER Heart Disease, Diabetes, Hypertension Review of Systems ROS-Unable to Obtain: intuabted and sedated Constitutional: see HPI Physical Exam Physical Exam Vital Signs Vital Signs - First Documented 06/01/21 06/01/21 17:40 21:21 Temp 35.1 Pulse 0 Resp 0 B/P (MAP) 0/0 (0) O2 Delivery Room Air FiO2 50 Capillary Refill : Greater Than 3 Seconds Height, Weight, BMI Height: 4'11.00" Weight: 80lbs. 0.0oz. 36.452692bm; 24.56 BMI Method:Stated General Appearance: Chronically ill, Thin, Other (intubated and sedated) HEENT: PERRL/EOMI, Moist Mucous Membranes; No Scleral Icterus (L), No Scleral Icterus (R) Neck: Normal Inspection, Supple Respiratory: Decreased Breath Sounds, Rhonci; No Wheezing; Other (on vent) Cardiovascular: No JVD, No Murmur, Tachycardia Gastrointestinal: Normal Bowel Sounds, Soft; No Distended Genital/Rectal: Other (lee in place) Extremity: No Calf Tenderness, No Pedal Edema Neurologic/Psychiatric: Other (sedated, appears comfortable, does not respond) Skin: Normal Color, Warm/Dry; No Mottled Results Results/Procedures Labs Laboratory Tests 06/01/21 17:07 06/01/21 18:34 06/02/21 02:20 Patient resulted labs reviewed. [facility] [place], [place] NAME: DANITZA GUERRA [facility] REC#: [id number] PT STATUS: ADM IN : 1975 PHYSICIAN: LESA TREVIZO ADMIT DATE: 06/01/21/ICU Signed Date of Exam:06/01/21 CHEST 1 VIEW, AP/PA ONLY INDICATION: CODE BLUE, post intubation, sepsis. TECHNIQUE: Single view chest 5:29 PM. CORRELATION STUDY: 02/03/2017. FINDINGS: An endotracheal tube has been placed, tip projects towards the right mainstem bronchus and should be retracted approximately 1 to 2 cm. Heart size and mediastinum are unremarkable. Extensive bilateral pulmonary opacities, adversely changed from prior. Likely what appears to be significant gas distention of the stomach. Additional gas in the right upper quadrant appears to be likely within the gastrointestinal tract. IMPRESSION: 1. Endotracheal tube appears to be positioned in its proximal right mainstem bronchus and should be retracted approximately 1 to 2 cm. 2. Extensive bilateral airspace disease. Could be reflective of multilobe pneumonia, edema, hemorrhage and/or ARDS. Follow-up imaging recommended. 3. Gas-distention of the stomach. Gastric tube is not visualized. Report was faxed to the [place] ER at 6:03 p.m., by layne. Dictated by: Dictated on workstation # [id number] Dict: 06/01/211754 Trans: 06/01/212053 LAYNE [phone] Interpreted by: ARIEL WARREN DO Electronically signed by: ARIEL WARREN DO 06/01/212053 Assessment/Plan Admission Diagnosis Cardiac arrest due to acute hypoxic respiratory failure from COVID19 Admission Status: Inpatient Order (span 2 midnights) Reason for Inpatient Admission: see below Assessment and Plan Cardiac arrest due to acute hypoxic respiratory failure from COVID19 Shock Mixed acidosis-severe Transaminitis-shock liver Did not meet criteria for arctic sun COVID19 + Continue decadron, does not meet criteria for remdesivir due to liver enzymes and being on vent, no baricitnib due to elevated procal WBC normal but given elevated procal will continue abx Await cultures Continue on vent, TeleICU consulted appreciate their expertise Continue levophed Lactic acid down from 13 to 6 d-dimer 6.14- start Lovenox, renally dose pH up from 6.98 on arrival to 7.32 today JESSICA Hypernatremia Appears clinically quite dry Continue fluid resuscitation Minimal urine output, may need dialysis if stabilizes and urine output does not improve Cerebral palsy Noncommunicative at baseline PT/OT when more stable CODE STATUS: Discussed situation with her sister who appears to be next of kin. She request all resuscitative measures to continue including another CODE BLUE if needed. I informed her of the dismal prognosis should she suffer another cardiac arrest given her current multi organ failure. She expressed understanding and again asks for us to "do everything." Diagnosis/Problems Diagnosis/Problems (1) Cerebral palsy Status: Chronic Qualifiers: Cerebral palsy type: unspecified type Qualified Codes: G80.9 - Cerebral palsy, unspecified (2) Acute respiratory failure Status: Acute Qualifiers: Respiratory failure complication: hypoxia and hypercapnia Qualified Codes: J96.01 - Acute respiratory failure with hypoxia; J96.02 - Acute respiratory failure with hypercapnia (3) JESSICA (acute kidney injury) Status: Acute (4) ARDS (adult respiratory distress syndrome) Status: Acute (5) COVID-19 Status: Acute (6) Counseling regarding end of life decision making Status: Acute (7) Hyperglycemia Status: Acute (8) Transaminitis Status: Acute (9) Lactic acidosis Status: Acute (10) Hypernatremia Status: Acute (11) Cardiac arrest Status: Acute (12) Pneumonia due to COVID-19 virus Status: Acute Copy Copies To 1: TODD CHANDLER MD, KATELYN M MD Jun 02, 2021 07:18
--- NOTE | 2021-06-02 07:59 | Tele-ICU Consult ---
History of Present Illness History of Present Illness Date Seen by Provider: Jun 02, 2021 Time Seen by Provider: 07:53 History of Present Illness 45 yo F brought to ED for increasing SOB, AMS, found to be in full arrest with ABG 6.98/70/115, intubated with #6 ET, IO placed, now has Left IJ started on norepi 0.19 with MAP Has cerebral palsy, weights only 40 kg. not opening eyes, Pupils are 1-2 mm and do react, no Sz activity last ABG 7.32/34/58, on AC 22 Vt 320 FiO2 50% PEEP 5 UO has been poor On IV decadron, IV cefepime, norepi D dimer pending, Cr 2.0 CXR shows ET a little low, bilateral infiltrates LA was 13 now 8 Allergies and Home Medications Allergies Coded Allergies: Iodinated Contrast Media (Unverified Allergy, Unknown, RASH, 02/09/14) Home Medications Lactulose 10 Gm/15 Ml Solution, 15 ML PEG DAILY, (Reported) Loratadine 5 Mg/5 Ml Solution, 5 ML PEG DAILY, (Reported) Past Medical/Social/Family Hx Patient Social History Tobacco Use?: No Smoking Status: Never a Smoker Use of E-Cig and/or Vaping dev: No Substance use?: No Alcohol Use?: No Pt stated abuse/neglect: Unable to obtain Immunizations Up To Date Tetanus Booster (TDap): Less Than 5 Years Hepatitis A: No Hepatitis B: No Current Status Advance Directives: Unable to obtain Communicates: Does Not Communicate Primary Language: Telugu Preferred Spoken Language: Telugu Sensory deficits: Speech impairment Implanted or Applied Medical D: None Review of Systems Constitutional: weight loss, other Respiratory: see HPI Cardiovascular: see HPI Psychiatric/Neurological: Other (unresponsive secondary to CP arrest) Sepsis Event Evaluation Height, Weight, BMI Height: 4'11.00" Weight: 80lbs. 0.0oz. 36.121110nr; 24.56 BMI Method:Stated Exam Exam Patient acknowledged, consented, and participated in this virtual visit which was conducted using real time audio/video Vital Signs Date Time Temp Pulse Resp B/P (MAP) Pulse Ox O2 Delivery O2 Flow Rate FiO2 06/02/21 07:33 36.1 06/02/21 07:00 119 06/02/21 06:00 36.3 120 22 97/69 (78) 95 Mechanical Ventilator 60.00 06/02/21 05:48 Mechanical Ventilator 60.00 06/02/21 05:00 36.4 122 22 98/64 (75) 95 Mechanical Ventilator 50.00 06/02/21 04:00 36.6 125 22 93/63 (73) 93 Mechanical Ventilator 50.00 06/02/21 04:00 93 Mechanical Ventilator 50 06/02/21 03:00 36.8 128 22 94/63 (73) 93 Mechanical Ventilator 50.00 06/02/21 02:00 37.0 130 22 91/59 (70) 93 Mechanical Ventilator 50.00 06/02/21 01:34 130 22 93 50 06/02/21 01:00 37.2 133 22 91/60 (70) 93 Mechanical Ventilator 50.00 06/02/21 01:00 132 06/02/21 00:00 37.5 133 22 89/60 (70) 94 Mechanical Ventilator 50.00 06/02/21 00:00 93 Mechanical Ventilator 50 06/01/21 23:36 133 89/51 06/01/21 23:36 133 89/51 06/01/21 23:22 35.1 06/01/21 23:00 37.7 133 22 87/57 (67) 93 Mechanical Ventilator 50.00 06/01/21 22:30 37.8 134 22 87/56 (66) 91 Mechanical Ventilator 50.00 06/01/21 22:00 37.9 137 22 82/52 (62) 91 Mechanical Ventilator 50.00 06/01/21 21:45 37.9 138 22 89/52 (64) 91 Mechanical Ventilator 50.00 06/01/21 21:36 38.0 138 22 85/52 (63) 92 Mechanical Ventilator 50.00 06/01/21 21:30 91 Mechanical Ventilator 50 06/01/21 21:24 140 06/01/21 21:21 142 22 92 50 06/01/21 21:15 130 25 96/68 99 06/01/21 21:15 38.0 139 22 85/32 (49) 91 Mechanical Ventilator 50.00 06/01/21 19:31 137 85/56 06/01/21 19:18 138 86/54 06/01/21 19:01 135 86/54 06/01/21 18:40 142 86/52 06/01/21 17:40 35.1 0 0 0/0 (0) Room Air I & O 06/02/21 07:00 Intake Total 4420 ml Output Total 110 ml Balance 4310 ml Height & Weight Height: 4'11.00" Weight: 80lbs. 0.0oz. 36.483336pa; 24.56 BMI Method:Stated General Appearance: Cachetic HEENT: Other (pupils unresponsive; dry oral mucosa; vomitus left side of mouth) Respiratory: Other (equal BS after intubation) Cardiovascular: Other (after 30min of CPR tachy) Capillary Refill: Greater Than 3 Seconds Gastrointestinal: soft, no organomegaly Extremity: No Pedal Edema Neurologic/Psychiatric: Other (unresponsive) Skin: Other (initially purple and mottled; after intubation color improved) Results Lab Laboratory Tests 06/01/21 17:07 06/01/21 18:34 06/02/21 02:20 Assessment/Plan Assessment/Plan ARDS picture from COVID 19, will continue on IV decadron, abx, pressors as needed Also trop elevated at 0.169 will get another CXR to check where tip of ET is outlook poor Critical Care: Critically Ill Patient Time spent with patient (mins): 30 CARRIE MAURO MD Jun 02, 2021 07:59
[2021-06-02] MEDS: FAMOTIDINE 20MG/2ML IV (PEPCID) IVP SCH (08:10)
[2021-06-02 08:24] VITALS: BP 105/72
[2021-06-02] MEDS ORDERED: DEXTROSE 50% 50 ML (IMS) SYR INJ ONE (08:51)
[2021-06-02] MEDS ORDERED: EPINEPHrine 0.1 MG/ML 10 ML (HOSPIRA) SYR IJ ONE (08:51)
[2021-06-02] MEDS ORDERED: SODIUM BICARB 8.4% 50 MEQ/50 ML (ABBOTT) SYR INJ ONE (08:51)
[2021-06-02 11:12] VITALS: BP 91/64
--- NOTE | 2021-06-02 11:53 | Diagnostic Imaging Report ---
HISTORY: Endotracheal tube adjustment COMPARISON: 06/01/2021 TECHNIQUE: Frontal view of the chest. FINDINGS: The tip of the endotracheal tube is about 1 cm above the ofe. Retracted since the prior study. There are central perihilar opacities. Aeration is mildly improved compared to the prior exam. No pleural effusion or pneumothorax is seen. An enteric tube projects over the distal stomach. The left central line tip projects over the SVC. There appears to be a PEG tube in place. IMPRESSION: 1. The endotracheal tube has been retracted, now about 1 cm above the ofe. This could be retracted another centimeter. 2. Bilateral perihilar opacities, with overall improved aeration compared to the prior exam. Report given to [place] ICU nurse (Martha) at 11:51 AM 06/02/2021/viridiana Dictated by: Dictated on workstation # [id number]
[2021-06-02] MEDS: inSUlin ASPART (NovoLOG) 1 UNIT/0.01 ML (CHARGE PER UNIT) SC SCH ×2 (12:18→18:11)
[2021-06-02] MEDS ORDERED: ENOXAPARIN 100 MG/1 ML (LOVENOX) SYR SC SCH (12:30)
[2021-06-02] MEDS: ENOXAPARIN 40 MG/0.4 ML (LOVENOX) SYR SC SCH (13:27)
--- NOTE | 2021-06-02 14:31 | Progress Note ---
Standard Progress Note Progress Notes/Assess & Plan Date Seen by a Provider: Jun 02, 2021 Time Seen by a Provider: 14:30 Progress/Assessment & Plan UO has been low only 5 mL over 4 hours BP ok, no Sz, no myclonus still on IV levo 0.19 will give 500 mL normal saline and repeat if no increase in UO Arjun Mauro MD Focused Exam Lactate Level 06/02/21 06:54: Lactic Acid Level 8.38*H 06/02/21 08:30: Lactic Acid Level 7.57*H 06/02/21 11:00: Lactic Acid Level 6.63*H Lactic Acid Level Laboratory Tests Test 06/02/21 11:00 Lactic Acid Level 6.63 MMOL/L (0.50-2.00) *H CARRIE MAURO MD Jun 02, 2021 14:31
[2021-06-02] MEDS: NS IV 500 ML 500 ML IV SCH ×2 (14:45→17:47)
[2021-06-02 15:34] VITALS: BP 101/70
[2021-06-02] MEDS: NOREPINEPHRINE 8 MG/250 ML 250 ML IV SCH (17:49)
[2021-06-02 18:29] VITALS: BP 101/70
[2021-06-02 21:56] VITALS: BP 103/71
[2021-06-02] MEDS: MIDAZOLAM DRIP PRE-MIX 100 ML IV SCH (22:22)
[2021-06-03] MEDS: 1/2 NS IV SOLUTION 1,000 ML IV SCH ×2 (01:17→08:27)
[2021-06-03] MEDS: inSUlin ASPART (NovoLOG) 1 UNIT/0.01 ML (CHARGE PER UNIT) SC SCH ×4 (01:17→17:13)
[2021-06-03 01:57] VITALS: BP 112/80
[2021-06-03] MEDS: RT-ALBUTEROL HFA 8.5 GM INHALER IH SCH ×6 (01:57→22:14)
[2021-06-03 04:50] LABS: ABG BASE EXCESS -11.9 MMOL/L (-2.5-2.5); ABG OXYGEN SATURATION 90 % (94-100); ABG PCO2 23 MMHG (35-45); ABG PH 7.36 (7.37-7.43); ABG PO2 62 MMHG (79-93); ABG TCO2 13.2 MMOL/L (21.0-31.0); ALLENS TEST YES-POS; INSPIRED O2 40%; VENTILATOR YES
[2021-06-03 04:51] LABS: BASOPHILS % (AUTO) 0 % (0-10); EOSINOPHILS % (AUTO) 0 % (0-10); MEAN CORPUSCULAR HEMOGLOBIN 31 pg (25-34); MEAN CORPUSCULAR HGB CONC 30 g/dL (32-36); MEAN CORPUSCULAR VOLUME 104 fL (80-99); MEAN PLATELET VOLUME 13.7 fL (9.0-12.2); PATIENT TEMP 36.3
[2021-06-03 04:53] LABS: HEMATOCRIT 29 % (35-52); HEMOGLOBIN 8.7 g/dL (11.5-16.0); LYMPHOCYTES # (AUTO) 1.5 10^3/uL (1.0-4.0); LYMPHOCYTES % (AUTO) 7 % (12-44); MONOCYTES # (AUTO) 0.2 10^3/uL (0.0-1.0); MONOCYTES % (AUTO) 1 % (0-12); NEUTROPHILS # (AUTO) 19.5 10^3/uL (1.8-7.8); NEUTROPHILS % (AUTO) 91 % (42-75); PLATELET COUNT 231 10^3/uL (130-400); WHITE BLOOD COUNT 21.5 10^3/uL (4.3-11.0)
[2021-06-03 05:03] LABS: POTASSIUM 3.7 MMOL/L (3.6-5.0)
[2021-06-03 05:08] LABS: CALCIUM 5.3 MG/DL (8.5-10.1); CREATININE SERUM 2.41 MG/DL (0.60-1.30); PHOSPHORUS 5.4 MG/DL (2.3-4.7)
[2021-06-03 05:11] LABS: MAGNESIUM 1.7 MG/DL (1.6-2.4)
[2021-06-03 05:34] LABS: BAND NEUTROPHILS 15 %; LYMPHOCYTES % (MANUAL) 4 %; METAMYELOCYTES % 3 %; MONOCYTES % (MANUAL) 1 %; NEUTROPHILS % (MANUAL) 77 %; NUCLEATED RED BLOOD CELLS 5
[2021-06-03 05:35] LABS: MICROCYTOSIS SLIGHT; TOXIC GRANULATION/VACUOLAZATIO 1+
[2021-06-03] MEDS: POTASSIUM CL 10MEQ/50ML IVPB 50 ML IV SCH (05:54)
[2021-06-03] MEDS: KCL 20 MEQ TAB (K-DUR) PO SCH (05:55)
[2021-06-03] MEDS: MAGNESIUM 1 GM/100 ML IVPB 100 ML IV SCH (05:55)
[2021-06-03] MEDS: CEFEPIME 1,000 MG/SWFI 10 ML IV PUSH IV SCH ×2 (06:40)
--- NOTE | 2021-06-03 06:55 | Occ Therapy Progress Note ---
Therapy Progress Note Orders received. Pt is currently intubated. OT will continue to monitor pt status and initiate treatment when pt is medically stable and able to actively participate in skilled therapy. RICH TONG Jun 03, 2021 06:55
[2021-06-03 06:56] VITALS: BP 110/70
--- NOTE | 2021-06-03 07:43 | Physical Therapy Progress Note ---
Therapy Progress Note Patient currently sedated and intubated. Patient is nonverbal and nonambulatory PLOF due to severe CP. Patient has a PEG. No skilled PT indicated. DEBBY MAIN PT Jun 03, 2021 07:43
[2021-06-03] MEDS: FAMOTIDINE 20MG/2ML IV (PEPCID) IVP SCH (08:27)
[2021-06-03 09:22] LABS: BILIRUBIN,DIRECT 0.4 MG/DL (0.0-0.3); BILIRUBIN,INDIRECT 0.1 MG/DL; BILIRUBIN,TOTAL 0.5 MG/DL (0.1-1.0); TOTAL PROTEIN 4.5 GM/DL (6.4-8.2)
[2021-06-03 10:38] VITALS: BP 100/80
[2021-06-03] MEDS ORDERED: PIPERACILLIN/TAZOBACTAM (BULK) 4.5 GM in NS (IVPB) 100 ML IV ONE (11:00)
[2021-06-03] MEDS ORDERED: POLY17PO6 (11:20)
[2021-06-03] MEDS ORDERED: MONT10TA32 PEG (11:20)
[2021-06-03] MEDS: LACTATED RINGERS 1,000 ML IV SCH ×2 (12:04→20:53)
[2021-06-03] MEDS: ENOXAPARIN 40 MG/0.4 ML (LOVENOX) SYR SC SCH (12:04)
--- NOTE | 2021-06-03 13:01 | Tele-ICU Progress Note ---
Subjective Date Seen by a Provider: Jun 03, 2021 Time Seen by a Provider: 08:42 Sepsis Event Evaluation Height, Weight, BMI Height: 4'11.00" Weight: 80lbs. 0.0oz. 36.566464ec; 24.56 BMI Method:Stated Focused Exam Lactate Level 06/02/21 08:30: Lactic Acid Level 7.57*H 06/02/21 11:00: Lactic Acid Level 6.63*H 06/03/21 08:50: Lactic Acid Level 1.69 Exam Exam Patient acknowledged, consented, and participated in this virtual visit which was conducted using real time audio/video Vital Signs Date Time Temp Pulse Resp B/P (MAP) Pulse Ox O2 Delivery O2 Flow Rate FiO2 06/03/21 12:44 107 06/03/21 12:00 35.4 108 22 107/82 (90) 97 Mechanical Ventilator 40.00 06/03/21 11:00 35.6 112 22 103/72 (82) 96 Mechanical Ventilator 40.00 06/03/21 10:38 100 22 96 40 06/03/21 10:00 35.8 109 25 108/76 (87) 97 Mechanical Ventilator 40.00 06/03/21 09:00 36.0 112 23 108/76 (87) 97 Mechanical Ventilator 40.00 06/03/21 08:00 36.1 110 24 108/82 (91) 95 Mechanical Ventilator 40.00 06/03/21 07:45 Mechanical Ventilator 40 06/03/21 07:00 36.1 111 24 110/79 (89) 94 Mechanical Ventilator 40.00 06/03/21 06:56 111 25 94 40 06/03/21 06:54 111 06/03/21 06:00 36.2 112 25 107/81 (90) 95 Mechanical Ventilator 40.00 06/03/21 05:00 36.3 113 25 107/78 (88) 93 Mechanical Ventilator 40.00 06/03/21 04:00 96 Mechanical Ventilator 40 06/03/21 04:00 36.4 112 24 113/83 (93) 93 Mechanical Ventilator 40.00 06/03/21 03:00 36.5 112 27 115/81 (92) 95 Mechanical Ventilator 40.00 06/03/21 02:00 36.7 112 23 113/78 (90) 95 Mechanical Ventilator 40.00 06/03/21 01:57 112 25 95 40 06/03/21 01:00 112 06/03/21 01:00 36.9 112 25 107/74 (85) 94 Mechanical Ventilator 40.00 06/03/21 00:00 96 Mechanical Ventilator 40 06/03/21 00:00 37.1 112 25 107/73 (84) 94 Mechanical Ventilator 40.00 06/02/21 23:00 37.3 113 25 106/74 (85) 94 Mechanical Ventilator 40.00 06/02/21 22:00 37.4 115 35 105/74 (84) 100 Mechanical Ventilator 40.00 06/02/21 21:56 114 26 94 40 06/02/21 21:00 37.5 115 24 99/71 (80) 94 Mechanical Ventilator 40.00 06/02/21 20:38 37.4 95 Mechanical Ventilator 40.00 06/02/21 20:00 96 Mechanical Ventilator 40 06/02/21 20:00 37.4 116 25 98/71 (80) 95 Mechanical Ventilator 40.00 06/02/21 19:00 37.2 115 23 98/66 (77) 94 Mechanical Ventilator 40.00 06/02/21 19:00 115 06/02/21 18:29 113 24 95 40 06/02/21 18:00 37.2 113 22 102/68 (79) 95 Mechanical Ventilator 40.00 06/02/21 17:49 118 86/60 06/02/21 17:00 37.2 118 23 97/64 (75) 94 Mechanical Ventilator 40.00 06/02/21 16:28 96 Mechanical Ventilator 50 06/02/21 16:00 37.1 121 23 99/63 (75) 94 Mechanical Ventilator 40.00 06/02/21 15:34 117 22 92 35 06/02/21 15:00 37.0 122 22 105/66 (79) 94 Mechanical Ventilator 40.00 06/02/21 14:00 37.0 121 22 100/69 (79) 94 Mechanical Ventilator 40.00 I & O 06/03/21 07:00 Intake Total 2500 ml Output Total 140 ml Balance 2360 ml Height & Weight Height: 4'11.00" Weight: 80lbs. 0.0oz. 36.309629yr; 24.56 BMI Method:Stated General Appearance: Chronically ill, Thin, Other (intubated and sedated) HEENT: PERRL/EOMI, Moist Mucous Membranes; No Scleral Icterus (L), No Scleral Icterus (R) Neck: Normal Inspection, Supple Respiratory: Decreased Breath Sounds, Rhonci; No Wheezing; Other (on vent) Cardiovascular: No JVD, No Murmur, Tachycardia Capillary Refill: Greater Than 3 Seconds Gastrointestinal: soft, no organomegaly Extremity: No Calf Tenderness, No Pedal Edema Neurologic/Psychiatric: Other (sedated, appears comfortable, does not respond) Skin: Normal Color, Warm/Dry; No Mottled Results Lab Laboratory Tests 06/01/21 17:07 06/01/21 18:34 06/02/21 02:20 06/03/21 04:30 Assessment/Plan Assessment/Plan (Tele-ICU Physician , Progress Note ) Available chart/ vitals / labs / Images reviewed Video assessment done using teleICU camera, rest of exam as per RN Discussed with RN , EXAM PER RN Events overnight : Afebrile I/O = pos 1.3 L Drips: levo Pressors: , hemodynamically stable Sedation gtt: versed 2 ( RASS-2 ) off sedation not follow commands VENT SETTINGS. AC 22 -320 45% +5 ABG reviewed Not candidate for SBT today Contraindications: Cardiovascular Stability / Sedation Score / FI02/PEEP / ABG / CXR Consultants: Hospital course: 06/02 - full arrest with ABG 6.98/70/115, intubated with #6 ET, A/P Cardiac arrest 06/01 -ROSC 30 min . not on TTM -off sedation not follow commands , Cerebral palsy :Noncommunicative at baseline AHRF / ARDS due to severe COVID19 AC 22 -320 45% +5 QMYY-Hhncdzeejlb-2/COVID-19 PNA ( Not vaccinated . Dx 06/02 ) -Steroids IV - started -Hypercoagulable state , DDIMER 6 on 06/02 -> lovenox ppx dose , follow D dimer JESSICA - cont hydration , additional fluid given Acidosis - lactate improved - ? due to JESSICA - follow Elevated LFT - ? shock liver , ? covid Sever hyper natremia - improved with hydration , follow Shock - septis vs cardiogenic - cont hydrtion , follow Suspected superimposed bact PNA -empiric abx started on 06/02 cx pending Leukocytosis 06/03 - already on abx Diabetes Mellitus - ISS , close f/up on steroids Anemia - follow Cerebral palsy -Noncommunicative at baseline Suspectyd possible dislodge PEG - discussed with RN to bring to attention of bedside MD - not using to feed now until eval done Lines : LEFT IJ (Central Line Necessity Reviewed) Cao: 06/02 OG: Nutrition: Analgesia: Anxiety/ delirium VTE Prophylaxis: lovenox proph Stress Ulcer Prophylaxis: pepcid Glycemic Control: Plans in collaboration with bedside consultants and IM MDs. Discussed with RN to reach out if any questions or concerns A total of 40 minutes of critical care time was devoted to this patient today, required to treat and/or prevent further deterioration of critical care condition ( as above) . KIANA VELAZQUEZ MD Jun 03, 2021 13:01
[2021-06-03 14:15] VITALS: BP 98/65
[2021-06-03 14:49] LABS: CREATININE SERUM 2.36 MG/DL (0.60-1.30); POTASSIUM 3.5 MMOL/L (3.6-5.0)
[2021-06-03 15:00] LABS: CALCIUM 4.8 MG/DL (8.5-10.1)
[2021-06-03] MEDS ORDERED: ALBUMIN 25% 25 GM/100 ML 100 ML IV ONE (15:30)
[2021-06-03] MEDS ORDERED: CALCIUM GLUC. 10% 4.65 MEQ/10 ML VIAL IV ONE ×2 (15:30)
[2021-06-03] MEDS: PIPERACILLIN/TAZOBACTAM (BULK) 4.5 GM in NS (IVPB) 100 ML IV SCH (16:20)
[2021-06-03] MEDS ORDERED: CALCIUM GLUCONATE 10% INJ 4.65 MEQ in NS (IVPB) 50 ML IV ONE ×3 (16:45→22:15)
[2021-06-03] MEDS: SODIUM BICARBONATE 8.4% VIAL 100 MEQ in D5W 1000 ML IV SOLUTION 1,000 ML IV SCH (16:45)
[2021-06-03 18:46] VITALS: BP 106/68
--- NOTE | 2021-06-03 18:58 | Progress Note - Hospitalist ---
Subjective HPI/CC On Admission Date Seen by Provider: Jun 03, 2021 Time Seen by Provider: 09:25 Patient is a 45-year-old female with a past medical history of cerebral palsy who presented to the emergency room as a CODE BLUE. She was resuscitated in the emergency room and is admitted to the ICU. She is intubated and sedated and unable to provide any history. I called and spoke with her sister and all history is obtained from the records and from the sister's account. 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 They noticed that Smitha was coug alfonso and raspy for the past 4 days. She also developed a fever. She had been treating this with tupa-sin-hworshi medicines. Her sister went to work yesterday and throughout the day she had worsened and when her sister returned she drove her immediately to the emergency department. Per ER note she was mottled and unresponsive on arrival. In route she quit breathing. CPR was started immediately and after 30 minutes of ACLS protocol ROSC was obtained. She was tested for Covid and was found to be positive. She is unvaccinated. Subjective/Events-last exam She is intubated and sedated. Focused Exam Lactate Level 06/02/21 08:30: Lactic Acid Level 7.57*H 06/02/21 11:00: Lactic Acid Level 6.63*H 06/03/21 08:50: Lactic Acid Level 1.69 Objective Exam Vital Signs Vital Signs Date Time Temp Pulse Resp B/P (MAP) Pulse Ox O2 Delivery O2 Flow Rate FiO2 06/03/21 18:46 131 22 94 40 06/03/21 18:00 36.4 106/68 (81) Mechanical Ventilator 40.00 Capillary Refill : Greater Than 3 Seconds General Appearance: No Apparent Distress, Thin, Other (syndromic appearance) Respiratory: Lungs Clear, Normal Breath Sounds, No Respiratory Distress, Other (intubated and mechanically ventilated) Cardiovascular: Regular Rate, Rhythm, No Edema, No Murmur Gastrointestinal: Normal Bowel Sounds, Soft Extremity: Normal Inspection, No Pedal Edema Neurologic/Psychiatric: Other (sedated) Skin: Normal Color, Warm/Dry Results/Procedures Lab Laboratory Tests 06/03/21 04:30 06/03/21 14:30 Patient resulted labs reviewed. Imaging: Reviewed Imaging Report Assessment/Plan Assessment and Plan Assess & Plan/Chief Complaint Cardiac arrest Acute respiratory failure due to COVID-19 Secondary bacterial pneumonia Hypercoagulable state associated with COVID-19 Endotracheally intubated Septic shock Shock liver Acute kidney injury Did not meet criteria for [facility] COVID-19 + Continue decadron Remdesivir contraindicated due to elevated LFTs Baricitinib contraindicated due to concominant bacterial pneumonia Blood culture with H influenza Sputum culture with H influenza and beta-hemolytic Strep [facility] Continue Levophed D-dimer elevated CT without PE Therapeutic Lovenox Hypocalcemia Hypokalemia Hypernatremia Continue fluid resuscitation Minimal urine output Monitor and correct electrolytes as needed Cerebral palsy Noncommunicative at baseline PT/OT when more stable Lactic acidosis, resolved Critical Care Critically Ill Patient Diagnosis/Problems Diagnosis/Problems (1) Septic shock Status: Acute (2) Haemophilus influenzae pneumonia Status: Acute (3) Bacteremia Status: Acute (4) Secondary bacterial pneumonia Status: Acute (5) Hypercoagulable state associated with COVID-19 Status: Acute (6) Shock liver Status: Acute (7) COVID-19 Status: Acute (8) Lactic acidosis Status: Acute (9) JESSICA (acute kidney injury) Status: Acute (10) Cardiac arrest Status: Acute STEVEN MAC MD Jun 03, 2021 18:58
[2021-06-03 20:24] LABS: POTASSIUM 3.6 MMOL/L (3.6-5.0)
[2021-06-03 20:30] LABS: CREATININE SERUM 2.7 MG/DL (0.60-1.30); PHOSPHORUS 5.4 MG/DL (2.3-4.7)
[2021-06-03 20:32] LABS: MAGNESIUM 1.5 MG/DL (1.6-2.4)
[2021-06-03] MEDS: NOREPINEPHRINE 8 MG/250 ML 250 ML IV SCH (21:42)
[2021-06-03] MEDS: MIDAZOLAM DRIP PRE-MIX 100 ML IV SCH (21:42)
[2021-06-03 22:14] VITALS: BP 105/63
[2021-06-03] MEDS: NS IV 500 ML 500 ML IV SCH (22:22)
[2021-06-04] MEDS: inSUlin ASPART (NovoLOG) 1 UNIT/0.01 ML (CHARGE PER UNIT) SC SCH ×3 (00:17→12:19)
[2021-06-04] MEDS: PIPERACILLIN/TAZOBACTAM (BULK) 4.5 GM in NS (IVPB) 100 ML IV SCH ×2 (00:26→11:10)
[2021-06-04 02:12] VITALS: BP 108/70
[2021-06-04] MEDS: RT-ALBUTEROL HFA 8.5 GM INHALER IH SCH ×4 (02:12→14:23)
[2021-06-04 04:09] LABS: ABG BASE EXCESS -11.6 MMOL/L (-2.5-2.5); ABG OXYGEN SATURATION 92 % (94-100); ABG PCO2 25 MMHG (35-45); ABG PO2 68 MMHG (79-93); ABG TCO2 13.9 MMOL/L (21.0-31.0)
[2021-06-04 04:10] LABS: ALLENS TEST YES-POS; BASOPHILS # (AUTO) 0.1 10^3/uL (0.0-0.1); BASOPHILS % (AUTO) 1 % (0-10); EOSINOPHILS % (AUTO) 0 % (0-10); HEMATOCRIT 22 % (35-52); INSPIRED O2 35%; LYMPHOCYTES # (AUTO) 1.1 10^3/uL (1.0-4.0); LYMPHOCYTES % (AUTO) 6 % (12-44); MEAN CORPUSCULAR HEMOGLOBIN 31 pg (25-34); MEAN CORPUSCULAR HGB CONC 31 g/dL (32-36); MEAN CORPUSCULAR VOLUME 101 fL (80-99); MONOCYTES # (AUTO) 0.3 10^3/uL (0.0-1.0); MONOCYTES % (AUTO) 2 % (0-12); NEUTROPHILS % (AUTO) 91 % (42-75); PATIENT TEMP 36.4; PLATELET COUNT 142 10^3/uL (130-400); VENTILATOR YES; WHITE BLOOD COUNT 18.7 10^3/uL (4.3-11.0)
[2021-06-04 04:11] LABS: ABG PH 7.34 (7.37-7.43)
[2021-06-04 04:35] LABS: POTASSIUM 3.5 MMOL/L (3.6-5.0)
[2021-06-04 04:41] LABS: CREATININE SERUM 2.78 MG/DL (0.60-1.30); HEMOGLOBIN 6.9 g/dL (11.5-16.0)
[2021-06-04 04:43] LABS: MAGNESIUM 1.5 MG/DL (1.6-2.4)
[2021-06-04] MEDS: POTASSIUM CL 10MEQ/50ML IVPB 50 ML IV SCH ×2 (04:48→04:59)
[2021-06-04] MEDS: MAGNESIUM 1 GM/100 ML IVPB 100 ML IV SCH ×3 (04:48→05:00)
[2021-06-04] MEDS: KCL 20 MEQ TAB (K-DUR) PO SCH (04:49)
[2021-06-04] MEDS: LACTATED RINGERS 1,000 ML IV SCH (06:19)
[2021-06-04 06:51] VITALS: BP 96/62
--- NOTE | 2021-06-04 06:58 | Occ Therapy Progress Note ---
Therapy Progress Note Pt is currently intubated. OT will continue to monitor pt status and initiate treatment when pt is medically stable and able to actively participate in skilled therapy. RICH TONG Jun 04, 2021 06:58
[2021-06-04] MEDS ORDERED: CALCIUM GLUCONATE 10% INJ 4.65 MEQ in NS (IVPB) 50 ML IV ONE (08:00)
[2021-06-04] MEDS: FAMOTIDINE 20MG/2ML IV (PEPCID) IVP SCH (09:00)
[2021-06-04 10:26] VITALS: BP 106/69
--- NOTE | 2021-06-04 10:32 | Progress Note - Hospitalist ---
LEAH ONEAL 06/04/21 1032: Subjective HPI/CC On Admission Patient is a 45-year-old female with a past medical history of cerebral palsy who presented to the emergency room as a CODE BLUE. She was resuscitated in the emergency room and is admitted to the ICU. She is intubated and sedated and unable to provide any history. I called and spoke with her sister and all history is obtained from the records and from the sister's account. Her sister states that she is her primary account liaison except for when she is at work and her kids take care of her. They noticed that Smitha was coughing and raspy for the past 4 days. She also developed a fever. She had been treating this with [id number] medicines. Her sister went to work yesterday and throughout the day she had worsened and when her sister returned she drove her immediately to the emergency department. Per ER note she was mottled and unresponsive on arrival. In route she quit breathing. CPR was started immediately and after 30 minutes of ACLS protocol ROSC was obtained. She was tested for Covid and was found to be positive. She is unvaccinated. Subjective/Events-last exam Pt is intubated and sedated. Focused Exam Lactate Level 06/02/21 08:30: Lactic Acid Level 7.57*H 06/02/21 11:00: Lactic Acid Level 6.63*H 06/03/21 08:50: Lactic Acid Level 1.69 Objective Exam Vital Signs Vital Signs Date Time Temp Pulse Resp B/P (MAP) Pulse Ox O2 Delivery O2 Flow Rate FiO2 06/04/21 06:51 91 22 93 40 06/04/21 06:00 36.2 98/65 (76) Mechanical Ventilator 40.00 Capillary Refill : Greater Than 3 Seconds General Appearance: No Apparent Distress, Thin Respiratory: Other (course breath sounds b/l. Intubated and mechanically ventilated ) Cardiovascular: Regular Rate, Rhythm, No Murmur Extremity: Normal Inspection, No Pedal Edema Neurologic/Psychiatric: Other (Pupils fixed, dilated and unresponsive to light. Absent corneal reflex b/l. Absent cough reflex. + babinski ) Skin: Normal Color, Warm/Dry Results/Procedures Lab Laboratory Tests 06/03/21 14:30 06/03/21 20:02 06/04/21 04:00 Patient resulted labs reviewed. Imaging: Reviewed Imaging Report Assessment/Plan Assessment and Plan Assess & Plan/Chief Complaint Acute respiratory failure due to COVID-19 Septic shock secondary bacterial pneumonia JESSICA Hypercoagulabe state due to COVID-19 Endotracheal intubated Continue decadron and albuterol Continue norepinephrine Consulted with teleICU about possible breath . They suggested weaning versed and doing apnea trial Continue Zosyn Continue Lovenox Hypocalcemia Hypokalemia Hypomagnesia Continue electrolyte resuscitate Continue to monitor and collect electrolytes as needed Anemia Cerebral palsy non communicative at baseline STEVEN MAC MD 06/04/21 1635: Subjective HPI/CC On Admission Date Seen by Provider: Jun 04, 2021 Time Seen by Provider: 08:55 Objective Results/Procedures Imaging: Reviewed Imaging Films, Reviewed Imaging Report, Discussed Imaging with Radiologist Assessment/Plan Assessment and Plan Assess & Plan/Chief Complaint Patient critically ill with COVID-19, multiorgan failure, and septic shock following a cardiac arrest. Patient comatose, unresponsive. Brainstem reflexes negative: absent cough/gag reflex, absent corneal reflex, absent pupillary reflex, positive Babinski. No response to noxious stimuli. Exam consistent with brain , discussed case with teleICU physician. Performing brain protocol. Planning for apnea test. CT Head showed diffuse anoxic brain injury with cerebellar herniation, discussed with radiologist. Not performing further brain testing. Discussed case with family, sister Anthony, and recommended DNR and she agreed. Planning for video call with family followed by transition to comfort measures only status. Critical Care: Critically Ill Patient Time spent with patient (mins): 45 Diagnosis/Problems Diagnosis/Problems (1) Anoxic brain injury Status: Acute (2) Cerebellar herniation Status: Acute (3) COVID-19 Status: Acute (4) Acute respiratory failure Status: Acute Qualifiers: Qualified Codes: J96.01 - Acute respiratory failure with hypoxia; J96.02 - Acute respiratory failure with hypercapnia (5) Septic shock Status: Acute (6) Haemophilus influenzae pneumonia Status: Acute (7) Bacteremia Status: Acute (8) Shock liver Status: Acute (9) JESSICA (acute kidney injury) Status: Acute Supervisory-Addendum Brief Verification & Attestation Participated in pt care: history, MDM, physical Personally performed: exam, history, MDM, supervision of care Care discussed with: Medical Student Procedures: n/a Results interpretation: Verified all documentation A medical student performed and documented this service in my presence. I reviewed and verified all information documented by the medical student and made modifications to such information, when appropriate. I personally performed the physical exam and medical decision making. LEAH ONEAL Jun 04, 2021 10:32 STEVEN MAC MD Jun 04, 2021 16:35
--- NOTE | 2021-06-04 10:32 | Tele-ICU Progress Note ---
Subjective Date Seen by a Provider: Jun 04, 2021 Time Seen by a Provider: 10:28 Sepsis Event Evaluation Height, Weight, BMI Height: 4'11.00" Weight: 80lbs. 0.0oz. 36.017324cz; 24.56 BMI Method:Stated Focused Exam Lactate Level 06/02/21 08:30: Lactic Acid Level 7.57*H 06/02/21 11:00: Lactic Acid Level 6.63*H 06/03/21 08:50: Lactic Acid Level 1.69 Exam Exam Patient acknowledged, consented, and participated in this virtual visit which was conducted using real time audio/video Vital Signs Date Time Temp Pulse Resp B/P (MAP) Pulse Ox O2 Delivery O2 Flow Rate FiO2 06/04/21 06:51 91 22 93 40 06/04/21 06:40 99 06/04/21 06:00 36.2 101 22 98/65 (76) 93 Mechanical Ventilator 40.00 06/04/21 05:00 36.4 106 21 104/68 (80) 93 Mechanical Ventilator 40.00 06/04/21 04:00 36.4 112 15 107/67 (80) 93 Mechanical Ventilator 40.00 06/04/21 04:00 Mechanical Ventilator 40 06/04/21 03:00 36.5 115 18 106/66 (79) 93 Mechanical Ventilator 40.00 06/04/21 02:12 118 22 93 40 06/04/21 02:00 36.5 120 22 108/70 (83) 92 Mechanical Ventilator 40.00 06/04/21 01:00 36.6 123 22 109/68 (82) 93 Mechanical Ventilator 40.00 06/04/21 01:00 123 06/04/21 00:00 36.7 126 22 107/66 (80) 93 Mechanical Ventilator 40.00 06/03/21 23:59 Mechanical Ventilator 40 06/03/21 23:00 36.7 129 22 106/65 (79) 93 Mechanical Ventilator 40.00 06/03/21 22:14 136 22 93 40 06/03/21 22:00 36.8 128 22 104/65 (78) 93 Mechanical Ventilator 40.00 06/03/21 21:00 36.8 129 22 101/63 (73) 93 Mechanical Ventilator 40.00 06/03/21 20:00 36.8 130 22 102/64 (73) 92 Mechanical Ventilator 40.00 06/03/21 20:00 Mechanical Ventilator 40 06/03/21 19:00 36.7 133 22 104/62 (73) 93 Mechanical Ventilator 40.00 06/03/21 19:00 133 06/03/21 18:46 131 22 94 40 06/03/21 18:00 36.4 130 22 106/68 (81) 87 Mechanical Ventilator 40.00 06/03/21 17:00 36.0 126 22 108/68 (81) 93 Mechanical Ventilator 40.00 06/03/21 16:00 35.5 123 22 100/67 (78) 94 Mechanical Ventilator 40.00 06/03/21 16:00 Mechanical Ventilator 40 06/03/21 15:00 35.2 118 22 98/64 (75) 95 Mechanical Ventilator 40.00 06/03/21 14:15 114 22 93 40 06/03/21 14:00 35.2 108 22 103/76 (85) 95 Mechanical Ventilator 40.00 06/03/21 13:00 35.2 107 22 106/77 (87) 92 Mechanical Ventilator 40.00 06/03/21 12:44 107 06/03/21 12:00 35.4 108 22 107/82 (90) 97 Mechanical Ventilator 40.00 06/03/21 12:00 Mechanical Ventilator 40 06/03/21 11:00 35.6 112 22 103/72 (82) 96 Mechanical Ventilator 40.00 06/03/21 10:38 100 22 96 40 I & O 06/04/21 07:00 Intake Total 130 ml Output Total 140 ml Balance -10 ml Height & Weight Height: 4'11.00" Weight: 80lbs. 0.0oz. 36.938372rw; 24.56 BMI Method:Stated General Appearance: No Apparent Distress, Thin, Other (syndromic appearance) HEENT: PERRL/EOMI, Moist Mucous Membranes; No Scleral Icterus (L), No Scleral Icterus (R) Neck: Normal Inspection, Supple Respiratory: Lungs Clear, Normal Breath Sounds, No Respiratory Distress, Other (intubated and mechanically ventilated) Cardiovascular: Regular Rate, Rhythm, No Edema, No Murmur Capillary Refill: Greater Than 3 Seconds Gastrointestinal: soft, no organomegaly Extremity: Normal Inspection, No Pedal Edema Neurologic/Psychiatric: Other (sedated) Skin: Normal Color, Warm/Dry Results Lab Laboratory Tests 06/03/21 04:30 06/03/21 14:30 06/03/21 20:02 06/04/21 04:00 Assessment/Plan Assessment/Plan (Tele-ICU Physician , Progress Note ) Available chart/ vitals / labs / Images reviewed Video assessment done using teleICU camera, rest of exam as per RN Discussed with RN Events overnight : Afebrile hemodynamically stable, no pressors, I/O =neg 1500 Drips: As per RN exam : minimal exp wheezing , no edema Consultants: cards Sx A/P Hip fracture, secondary to nonsyncopal fall, failure implant, will require redo surgery due to hardware failure - (06/03) S/P Removal of Failed Hardware. Acute resp failure - suspected AECOPD - cont vapotherm 35 L 60% - IS, nebs - STOP IVF 06/04 AECOPD - might need steroids iv - monitor for now nebs Tachycrdia - as per cardilology ( probably related to pain ) h/o hyponatremia - normalized with trend down Infiltrates on Cxr - possible chronic Chronic hypoxic and hypercarbic resp failure with COPD with low reserve - - recent prolonged hospitalization after CPR due to hypoxia - intubated 02/2021- and 04/2021 - weaning down O2 - mebs - continue with LABA/ICS, LAMA, - ? need steroids Anxiety - xanax , needed in past precedex - monitor CHF - Echo February 05, 2021 showing EF 55-65%, grade 1 diastolic dypsfunction, moderately dilated left atrium - compensated , keep neg balance - on bumex po - ccards follow Pulm HTN , secondary to COPD - PA 40-45mmHg - AVOID FLUID OVERLOAD well-circumscribed nodule in the left upper lobe on cxr - to follow as per PCP Lines : (Central Line Necessity Reviewed) Cao: OG: Nutrition: Po clear Analgesia: Anxiety/ delirium VTE Prophylaxis: shalonda 40 qd Stress Ulcer Prophylaxis: po Glycemic Control: Plans in collaboration with bedside consultants and IM MDs. Discussed with RN to reach out if any questions or concerns A total of 40 minutes of critical care time was devoted to this patient today, required to treat and/or prevent further deterioration of critical care condition ( as above) . KIANA VELAZQUEZ MD Jun 04, 2021 10:32
--- NOTE | 2021-06-04 10:38 | Tele-ICU Progress Note ---
Subjective Date Seen by a Provider: Jun 04, 2021 Time Seen by a Provider: 10:37 Sepsis Event Evaluation Height, Weight, BMI Height: 4'11.00" Weight: 80lbs. 0.0oz. 36.504947fy; 24.56 BMI Method:Stated Focused Exam Lactate Level 06/02/21 08:30: Lactic Acid Level 7.57*H 06/02/21 11:00: Lactic Acid Level 6.63*H 06/03/21 08:50: Lactic Acid Level 1.69 Exam Exam Patient acknowledged, consented, and participated in this virtual visit which was conducted using real time audio/video Vital Signs Date Time Temp Pulse Resp B/P (MAP) Pulse Ox O2 Delivery O2 Flow Rate FiO2 06/04/21 06:51 91 22 93 40 06/04/21 06:40 99 06/04/21 06:00 36.2 101 22 98/65 (76) 93 Mechanical Ventilator 40.00 06/04/21 05:00 36.4 106 21 104/68 (80) 93 Mechanical Ventilator 40.00 06/04/21 04:00 36.4 112 15 107/67 (80) 93 Mechanical Ventilator 40.00 06/04/21 04:00 Mechanical Ventilator 40 06/04/21 03:00 36.5 115 18 106/66 (79) 93 Mechanical Ventilator 40.00 06/04/21 02:12 118 22 93 40 06/04/21 02:00 36.5 120 22 108/70 (83) 92 Mechanical Ventilator 40.00 06/04/21 01:00 36.6 123 22 109/68 (82) 93 Mechanical Ventilator 40.00 06/04/21 01:00 123 06/04/21 00:00 36.7 126 22 107/66 (80) 93 Mechanical Ventilator 40.00 06/03/21 23:59 Mechanical Ventilator 40 06/03/21 23:00 36.7 129 22 106/65 (79) 93 Mechanical Ventilator 40.00 06/03/21 22:14 136 22 93 40 06/03/21 22:00 36.8 128 22 104/65 (78) 93 Mechanical Ventilator 40.00 06/03/21 21:00 36.8 129 22 101/63 (73) 93 Mechanical Ventilator 40.00 06/03/21 20:00 36.8 130 22 102/64 (73) 92 Mechanical Ventilator 40.00 06/03/21 20:00 Mechanical Ventilator 40 06/03/21 19:00 36.7 133 22 104/62 (73) 93 Mechanical Ventilator 40.00 06/03/21 19:00 133 06/03/21 18:46 131 22 94 40 06/03/21 18:00 36.4 130 22 106/68 (81) 87 Mechanical Ventilator 40.00 06/03/21 17:00 36.0 126 22 108/68 (81) 93 Mechanical Ventilator 40.00 06/03/21 16:00 35.5 123 22 100/67 (78) 94 Mechanical Ventilator 40.00 06/03/21 16:00 Mechanical Ventilator 40 06/03/21 15:00 35.2 118 22 98/64 (75) 95 Mechanical Ventilator 40.00 06/03/21 14:15 114 22 93 40 06/03/21 14:00 35.2 108 22 103/76 (85) 95 Mechanical Ventilator 40.00 06/03/21 13:00 35.2 107 22 106/77 (87) 92 Mechanical Ventilator 40.00 06/03/21 12:44 107 06/03/21 12:00 35.4 108 22 107/82 (90) 97 Mechanical Ventilator 40.00 06/03/21 12:00 Mechanical Ventilator 40 06/03/21 11:00 35.6 112 22 103/72 (82) 96 Mechanical Ventilator 40.00 06/03/21 10:38 100 22 96 40 I & O 06/04/21 07:00 Intake Total 130 ml Output Total 140 ml Balance -10 ml Height & Weight Height: 4'11.00" Weight: 80lbs. 0.0oz. 36.085155va; 24.56 BMI Method:Stated General Appearance: No Apparent Distress, Thin, Other (syndromic appearance) HEENT: PERRL/EOMI, Moist Mucous Membranes; No Scleral Icterus (L), No Scleral Icterus (R) Neck: Normal Inspection, Supple Respiratory: Lungs Clear, Normal Breath Sounds, No Respiratory Distress, Other (intubated and mechanically ventilated) Cardiovascular: Regular Rate, Rhythm, No Edema, No Murmur Capillary Refill: Greater Than 3 Seconds Gastrointestinal: soft, no organomegaly Extremity: Normal Inspection, No Pedal Edema Neurologic/Psychiatric: Other (sedated) Skin: Normal Color, Warm/Dry Results Lab Laboratory Tests 06/03/21 04:30 06/03/21 14:30 06/03/21 20:02 06/04/21 04:00 Assessment/Plan Assessment/Plan (Tele-ICU Physician , Progress Note ) Available chart/ vitals / labs / Images reviewed Video assessment done using teleICU camera, rest of exam as per RN Discussed with RN , EXAM PER RN Events overnight : Afebrile I/O = pos 1.0 L Drips: levo OFF Pressors: , hemodynamically stable Sedation gtt: versed off ( RASS-2 ) off sedation not follow commands VENT SETTINGS. AC 22 -320 45% +5 ABG reviewed Not candidate for SBT today Contraindications: Cardiovascular Stability / Sedation Score / FI02/PEEP / ABG / CXR Consultants: Hospital course: 06/02 - full arrest with ABG 6.98/70/115, intubated with #6 ET 06/04 - Hb 6/9 on 06/04, bactermia with Haemophillus A/P Cardiac arrest 06/01 -ROSC 30 min . not on TTM -off sedation not follow commands , Cerebral palsy :Noncommunicative at [facility] AHRF / ARDS due to severe COVID19 AC 22 -320 45% +5 [id number]-4/COVID-19 PNA ( Not vaccinated . Dx 06/02 ) -Steroids IV - started -Hypercoagulable state , DDIMER 6 on 06/02 -> lovenox ppx dose , follow D dimer JESSICA- WORSENING - cont hydration , additional fluid given, K stable - follow Acidosis - lactate improved - ? due to JESSICA - on bicarn gtt - increase 75 today - follow lactate and BMP latter today Elevated LFT - ? shock liver , ? covid Sever hypernatremia - improved with hydration , follow Shock - septis vs cardiogenic - cont hydrtion , follow Bact PNA ( haemophylus -with bacteremia ) and UTI ( enterococcus ) -empiric abx started on 06/02 Anemia - Hb 6/9 on 06/04- no sign of bleeding - probably delutional - will T&C , probably needs transfusion Thrombocytopenis drop PLT - ? delutuinal Diabetes Mellitus - ISS , close f/up on steroids Cerebral palsy -Noncommunicative at baseline Suspected possible dislodge PEG - discussed with RN to bring to attention of bedside MD - not using to feed now until eval done Lines : LEFT IJ (Central Line Necessity Reviewed) Cao: 06/02 OG: Nutrition: Analgesia: Anxiety/ delirium VTE Prophylaxis: lovenox proph Stress Ulcer Prophylaxis: pepcid Glycemic Control: Plans in collaboration with bedside consultants and IM MDs. Discussed with RN to reach out if any questions or concerns discussed with Dr Comer A total of 40 minutes of critical care time was devoted to this patient today, required to treat and/or prevent further deterioration of critical care condition ( as above) . KIANA VELAZQUEZ MD Jun 04, 2021 10:38
[2021-06-04] MEDS: ENOXAPARIN 40 MG/0.4 ML (LOVENOX) SYR SC SCH (12:19)
[2021-06-04] MEDS ORDERED: PIPERACILLIN/TAZOBACTAM (BULK) 4.5 GM in NS (IVPB) 100 ML IV SCH ×2 (13:00→23:00)
[2021-06-04 13:21] LABS: HEMATOCRIT 22 % (35-52); MEAN CORPUSCULAR HEMOGLOBIN 31 pg (25-34); MEAN CORPUSCULAR HGB CONC 32 g/dL (32-36); MEAN CORPUSCULAR VOLUME 100 fL (80-99); MEAN PLATELET VOLUME 13.2 fL (9.0-12.2); PLATELET COUNT 118 10^3/uL (130-400); WHITE BLOOD COUNT 14.9 10^3/uL (4.3-11.0)
[2021-06-04 13:38] LABS: ALANINE AMINOTRANSFERASE 393 U/L (0-55); ALBUMIN 2.1 GM/DL (3.2-4.5); ALKALINE PHOSPHATASE 143 U/L (40-136); AMMONIA 23 UMOL/L (11-32); BILIRUBIN,TOTAL 0.9 MG/DL (0.1-1.0); BUN/CREATININE RATIO 29; CALCIUM 6.2 MG/DL (8.5-10.1); CARBON DIOXIDE 14 MMOL/L (21-32); CHLORIDE 112 MMOL/L (98-107); GFR ESTIMATED 18; GLUCOSE 274 MG/DL (70-105); POTASSIUM 3.8 MMOL/L (3.6-5.0); SODIUM 140 MMOL/L (135-145); TOTAL PROTEIN 3.9 GM/DL (6.4-8.2)
[2021-06-04 14:23] VITALS: BP 107/70
--- NOTE | 2021-06-04 14:43 | Tele-ICU Progress Note ---
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 0.0oz. 36.268798ii; 24.56 BMI Method:Stated Lactic Acid Level Laboratory Tests Test 06/04/21 13:05 Lactic Acid Level 0.62 MMOL/L (0.50-2.00) KIANA VELAZQUEZ MD Jun 04, 2021 14:43
[2021-06-04] MEDS: SODIUM BICARBONATE 8.4% VIAL 100 MEQ in D5W 1000 ML IV SOLUTION 1,000 ML IV SCH (14:49)
--- NOTE | 2021-06-04 16:30 | Diagnostic Imaging Report ---
PROCEDURE: CT head without contrast. TECHNIQUE: Multiple contiguous axial images were obtained through the brain without the use of intravenous contrast. Auto Exposure Controls were utilized during the CT exam to meet ALARA standards for radiation dose reduction. INDICATION: Unresponsive. There is extensive diffuse cerebral and cerebellar swelling with diffuse low-density and absence of rowe-white matter differentiation. In addition there is protrusion of cerebellar tonsils through foramen magnum indicating developing herniation. No obvious hemorrhage is identified. There is no ventriculomegaly. There is fluid within the maxillary sinuses and opacification of ethmoid air cells. There is also fluid present within sphenoid chamber. IMPRESSION: Findings are compatible with global anoxic injury of brain with diffuse cerebral edema and cerebellar herniation. Dictated by: Dictated on workstation # [id number]
--- NOTE | 2021-06-04 20:26 | Discharge Summary ---
Discharge Summary Hospital Course Was the Problem List Reviewed?: Yes Problems/Dx: (1) Anoxic brain injury Status: Acute (2) Cerebellar herniation Status: Acute (3) COVID-19 Status: Acute (4) Acute respiratory failure Status: Acute Qualifiers: Qualified Codes: J96.01 - Acute respiratory failure with hypoxia; J96.02 - Acute respiratory failure with hypercapnia (5) Septic shock Status: Acute (6) Haemophilus influenzae pneumonia Status: Acute (7) Bacteremia Status: Acute (8) Shock liver Status: Acute (9) JESSICA (acute kidney injury) Status: Acute Hospital Course Date of Admission: Jun 01, 2021 at 18:34 Admission Diagnosis : Cardiac arrest Family Physician/Provider: Cristy Brumfield MD Date of Discharge: 06/04/21 Discharge Diagnosis: Cardiac arrest, acute respiratory failure due to COVID-19, secondary bacterial pneumonia, Haemophilus influenza bacteremia, septic shock, anoxic brain injury Hospital Course: Maeve Khalil was a 45 year old female with cerebral palsy who presented to the ER in cardiac arrest. She had become apneic at some point during the trip to the ER. ACLS was performed and ROSC was obtained after about 30 minutes. She was intubated and admitted to the ICU. Workup revealed that she was positive for COVID-19. She also had a secondary bacterial pneumonia and Haemophilus influenza bacteremia. She was in septic shock and required pressor support. She had shock liver and acute kidney injury. She remained unresponsive off sedation. Her exam was concerning for brain . She underwent a CT head which revealed severe diffuse anoxic brain injury with cerebellar herniation. Her family was notified and she was transitioned to comfort measures only status. She subsequently at 1909 on 06/04/2021. Labs and Pending Lab Test: Laboratory Tests 06/03/21 23:33: Glucometer 173H 06/04/21 04:00: White Blood Count 18.7H, Red Blood Count 2.21L, Hemoglobin 6.9#*L, Hematocrit 22L, Mean Corpuscular Volume 101H, Mean Corpuscular Hemoglobin 31, Mean Corpuscular Hemoglobin Concent 31L, Red Cell Distribution Width 12.8, Platelet Count 142, Mean Platelet Volume 13.0H, Immature Granulocyte % (Auto) 1, Neutrophils (%) (Auto) 91H, Lymphocytes (%) (Auto) 6L, Monocytes (%) (Auto) 2, Eosinophils (%) (Auto) 0, Basophils (%) (Auto) 1, Neutrophils # (Auto) 17.0H, Lymphocytes # (Auto) 1.1, Monocytes # (Auto) 0.3, Eosinophils # (Auto) 0.0, Basophils # (Auto) 0.1, Immature Granulocyte # (Auto) 0.2H, D-Dimer 2.77H, Blood Gas Puncture Site RIGHT RADIAL, Blood Gas Patient Temperature 36.4, Arterial Blood pH 7.34*L, Arterial Blood Partial Pressure CO2 25L, Arterial Blood Partial Pressure O2 68L, Arterial Blood HCO3 13*L, Arterial Blood Total CO2 13.9L, Arterial Blood Oxygen Saturation 92L, Arterial Blood Base Excess -11.6L, Messi Test YES-POS, Blood Gas Ventilator Setting YES, Blood Gas Inspired Oxygen 35%, Sodium Level 142, Potassium Level 3.5L, Chloride Level 114H, Carbon Dioxide Level 12L, Anion Gap 16H, Blood Urea Nitrogen 83H, Creatinine 2.78H, Estimat Glomerular Filtration Rate 19, BUN/Creatinine Ratio 30, Glucose Level 184H, Calcium Level 6.0*L, Phosphorus Level 5.0H, Magnesium Level 1.5L 06/04/21 12:01: Glucometer 245H 06/04/21 13:05: White Blood Count 14.9H, Red Blood Count 2.23L, Hemoglobin 7.0L, Hematocrit 22L, Mean Corpuscular Volume 100H, Mean Corpuscular Hemoglobin 31, Mean Corpuscular Hemoglobin Concent 32, Red Cell Distribution Width 12.7, Platelet Count 118L, Mean Platelet Volume 13.2H, Sodium Level 140, Potassium Level 3.8, Chloride Level 112H, Carbon Dioxide Level 14L, Anion Gap 14, Blood Urea Nitrogen 80H, Creatinine 2.80H, Estimat Glomerular Filtration Rate 18, BUN/Creatinine Ratio 29, Glucose Level 274H, Calcium Level 6.2L, Lactic Acid Level 0.62, Corrected Calcium 7.7L, Total Bilirubin 0.9, Aspartate Amino Transf (AST/SGOT) 237H, Alanine Aminotransferase (ALT/SGPT) 393H, Alkaline Phosphatase 143H, Ammonia 23, Troponin I < 0.028, Total Protein 3.9L, Albumin 2.1L Microbiology 06/01/21 MRSA Screen - Final, Complete MRSA not isolated 06/01/21 Blood Culture - Preliminary, Resulted Probable Haemophilus 06/01/21 Urine Culture - Final, Complete Enterococcus faecalis Home Meds Active Reported Miralax (Polyethylene Glycol 3350) 17 Gm Powd.pack 17 Gm DAILY Montelukast Sodium 10 Mg Tablet 10 Mg PEG DAILY Children's Loratadine (Loratadine) 5 Mg/5 Ml Solution 10 Ml PEG DAILY Assessment/Pt Instructions Patient Discharge Physical Examination Vital Signs Vital Signs Date Time Temp Pulse Resp B/P (MAP) Pulse Ox O2 Delivery O2 Flow Rate FiO2 06/04/21 18:00 34.9 101 22 98/68 87 Mechanical Ventilator 40.00 06/04/21 16:30 100 Allergies: Coded Allergies: Iodinated Contrast Media (Unverified Allergy, Unknown, RASH, 02/09/14) Discharge Summary Date of Admission Jun 01, 2021 at 18:34 Date of Discharge Discharge Date: Jun 04, 2021 Discharge Time: 19:09 Admission Diagnosis Cardiac arrest due to acute hypoxic respiratory failure from COVID19 Consults/Procedures Consulations TeleICU, general surgery Comfort Measures/ End of Life Care: Comfort Measures Cardiopulmonary Arrest: Cardiorespiratory Arrest Date of : Jun 04, 2021 Time of : 19:09 Discharge Diagnosis Anoxic brain injury and cerebellar herniation due to cardiac arrest secondary to acute respiratory failure from COVID-19 and secondary bacterial pneumonia and Haemophilus influenza bacteremia with septic shock and multisystem organ failure (1) Anoxic brain injury Status: Acute (2) Cerebellar herniation Status: Acute (3) COVID-19 Status: Acute (4) Acute respiratory failure Status: Acute Qualifiers: Qualified Codes: J96.01 - Acute respiratory failure with hypoxia; J96.02 - Acute respiratory failure with hypercapnia (5) Septic shock Status: Acute (6) Haemophilus influenzae pneumonia Status: Acute (7) Bacteremia Status: Acute (8) Shock liver Status: Acute (9) JESSICA (acute kidney injury) Status: Acute (10) Multisystem organ failure Status: Acute STEVEN MAC MD Jun 04, 2021 20:17
== END 2021-06-04 21:22 | disposition expired | DRG 208 ==
LOC: EDUNIT# 16:54 → ER 16:55 → ICU 18:34
PROVIDERS: ADMIT Family Medicine; ATTEND Internal Medicine
PROC: 5A12012 Performance of Cardiac Output, Single, Manual (ICD-10-PCS; principal; 2021-06-01)
PROC: 5A1945Z Respiratory Ventilation, 24-96 Consecutive Hours (ICD-10-PCS; 2021-06-01)
PROC: 0BH17EZ Insertion of Endotracheal Airway into Trachea, Via Natural or Artificial Opening (ICD-10-PCS; 2021-06-01)
DX: U07.1 COVID-19 (principal); A41.3 Sepsis due to Hemophilus influenzae; R65.21 Severe sepsis with septic shock; J12.82 Pneumonia due to coronavirus disease 2019; J14 Pneumonia due to Hemophilus influenzae; J80 Acute respiratory distress syndrome; K72.00 Acute and subacute hepatic failure without coma; G93.5 Compression of brain; G93.6 Cerebral edema; E87.4 Mixed disorder of acid-base balance; N17.9 Acute kidney failure, unspecified; E87.0 Hyperosmolality and hypernatremia; G93.1 Anoxic brain damage, not elsewhere classified; Z51.5 Encounter for palliative care; Z66 Do not resuscitate; I46.9 Cardiac arrest, cause unspecified; E11.65 Type 2 diabetes mellitus with hyperglycemia; G80.9 Cerebral palsy, unspecified; I87.2 Venous insufficiency (chronic) (peripheral); I95.9 Hypotension, unspecified; E83.51 Hypocalcemia; K59.09 Other constipation; E87.6 Hypokalemia; E83.42 Hypomagnesemia
CPT/HCPCS: 36415; 51702; 70450; 71045; 80048; 80053; 80076; 81000; 82140; 82330; 82805; 82947; 83605; 83735; 84100; 84145; 84478; 84484; 85007; 85025; 85027; 85379; 85610; 85730; 86850; 86900; 86901; 87040; 87070; 87077; 87081; 87088; 87184; 87185; 87186; 87205; 87636; 93005; 94002; 94003; 94640; 94799; 99291; 99292